=== PATIENT | female | born 1930 | race Caucasian/White ===

== ENCOUNTER → 2016-03-17 | Outpatient (CLI) | payer OTHER, BC ==
--- NOTE | 2016-03-17 11:24 | DIAGNOSTIC IMAGING REPORT ---
CHEST 2 VIEWS ROUTINE CLINICAL HISTORY: J44.9 Chronic obstructive pulmonary [id number] dyspnea COMPARISON STUDY: No previous studies for comparison. FINDINGS: Emphysematous change. Prominent pulmonary vasculature. Small bilateral pleural effusions. IMPRESSION: Congestive heart failure. Emphysematous change. Electronically signed by: Hardik Bianchi M.D. 03/17/2016 11:22 AM
== END | disposition home or self-care (01) ==
LOC: C.RAD1850 10:52
PROVIDERS: ATTEND Nurse Practitioner
DX: J44.9 Chronic obstructive pulmonary disease, unspecified (principal); I50.9 Heart failure, unspecified

== ENCOUNTER → 2016-05-01 | Outpatient (CLI) | payer OTHER, BC ==
[2016-05-01 13:15] LABS: THYROID STIMULATING HORMONE 3.59 uIu/ml (0.300-4.500)
== END | disposition home or self-care (01) ==
LOC: C.LABBFT 10:26
PROVIDERS: ATTEND Nurse Practitioner
DX: E07.9 Disorder of thyroid, unspecified (principal)

== ENCOUNTER → 2016-06-03 | Outpatient (CLI) | payer OTHER, BC ==
[2016-06-03 12:48] LABS: BASO % 0.2 %; BASO ABS # 0.02 K/uL (0-0.2); COMPLETE YES; EOS % 0.5 %; HEMATOCRIT 38.3 % (37-47); IG% 0.2 %; LYMPH % 3.9 %; LYMPH ABS # 0.42 K/uL (1.2-3.4); MEAN CELL VOLUME 89.7 fL (80-100); MEAN CORPUSCULAR HEMOGLOBIN 29.3 pg (25-34); MEAN CORPUSCULAR HGB CONC 32.6 g/dl (32-36); MEAN PLATELET VOLUME 10.5 fL (7.4-10.4); MONO % 3.9 %; NEUT % 91.3 %; PLATELET COUNT 281 K/uL (130-400); RED BLOOD COUNT 4.27 M/uL (4.2-5.4); WHITE BLOOD COUNT 10.88 K/uL (4.8-10.8)
[2016-06-03 13:01] LABS: ALT/SGPT 26 U/L (12-78); AST/SGOT 19 U/L (15-37); CREATININE 0.73 mg/dl (0.60-1.20)
[2016-06-03 13:04] LABS: ALKALINE PHOSPHATASE 116 U/L (45-117)
== END | disposition home or self-care (01) ==
LOC: C.LABBFT 10:21
PROVIDERS: ATTEND Physician Assistant
DX: Z79.899 Other long term (current) drug therapy (principal)

== ENCOUNTER → 2016-10-29 | Outpatient (CLI) | payer OTHER, BC ==
--- NOTE | 2016-10-29 12:19 | DIAGNOSTIC IMAGING REPORT ---
CHEST 2 VIEWS ROUTINE CLINICAL HISTORY: R60.9 cough dyspnea COMPARISON STUDY: 03/17/2016 FINDINGS: Emphysematous and diffuse chronic fibrotic change. Chronic The lateral costophrenic angles. Stable pulmonary hyperaeration. Potential minimal parenchymal infiltrative change anterior aspect right middle lobe. IMPRESSION: 1. 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 2. Minimal superimposed infiltrative process anterior right middle lobe. The above report was generated using voice recognition software. It may contain grammatical, syntax or spelling errors. Electronically signed by: Hardik Bianchi M.D. 10/29/2016 12:18 PM Dictated Date/Time: 10/29/2016 12:16 PM
[2016-10-29 13:48] LABS: ALT/SGPT 20 U/L (12-78); AST/SGOT 20 U/L (15-37); BLOOD UREA NITROGEN 9 mg/dl (7-18); BUN/CREATININE RATIO 14.7 (10-20); CALCIUM 8.8 mg/dl (8.5-10.1); CARBON DIOXIDE 30 mmol/L (21-32); CHLORIDE 104 mmol/L (98-107); CHOLESTEROL 138 mg/dl (0-200); CREATININE 0.59 mg/dl (0.60-1.20); GLUCOSE 90 mg/dl (70-99); POTASSIUM 3.9 mmol/L (3.5-5.1); SODIUM 139 mmol/L (136-145); TRIGLYCERIDES 57 mg/dl (0-150); VERY LOW DENSITY LIPOPROT CALC 11 mg/dl
[2016-10-29 13:55] LABS: ALB/GLOB RATIO 0.7 (0.9-2); ALKALINE PHOSPHATASE 114 U/L (45-117); CHOLESTEROL/HDL RATIO 2.7; HDL CHOLESTEROL 52 mg/dl; LDL CHOLESTEROL CALCULATED 75 mg/dl
[2016-10-29 13:57] LABS: ESTIMATED AVERAGE GLUCOSE 114 mg/dl; HA1C FLAG Normal (Normal)
== END | disposition home or self-care (01) ==
LOC: C.RAD 11:42
PROVIDERS: ATTEND Nurse Practitioner
DX: R60.9 Edema, unspecified (principal); R73.01 Impaired fasting glucose; E07.9 Disorder of thyroid, unspecified

== ENCOUNTER → 2016-11-05 | Outpatient (CLI) | payer OTHER, BC ==
[2016-11-05 18:00] LABS: BLOOD UREA NITROGEN 11 mg/dl (7-18); BUN/CREATININE RATIO 16.8 (10-20); CARBON DIOXIDE 31 mmol/L (21-32); CHLORIDE 103 mmol/L (98-107); CREATININE 0.68 mg/dl (0.60-1.20); GLUCOSE 100 mg/dl (70-99); POTASSIUM 4.4 mmol/L (3.5-5.1); SODIUM 138 mmol/L (136-145)
== END | disposition home or self-care (01) ==
LOC: C.LABBFT 15:47
PROVIDERS: ATTEND Nurse Practitioner
DX: R60.9 Edema, unspecified (principal)

== ENCOUNTER → 2017-01-25 | Outpatient (CLI) | payer OTHER, BC | END | disposition home or self-care (01) | LOC: C.LABBFT 14:37 | PROVIDERS: ATTEND Nurse Practitioner | DX: E03.9 Hypothyroidism, unspecified (principal) ==

== ENCOUNTER 2017-05-06 14:13 | Inpatient (IN) | payer OTHER, BC ==
[~2017-05-06] VITALS: Ht 167.6 cm; Wt 93.3 kg
[2017-05-06] MEDS ORDERED: ALBUT/IPRATROP 3MG/0.5MG NEB 3 ML VIAL INH ONE (14:30)
--- NOTE | 2017-05-06 14:36 | EMERGENCY ROOM VISIT NOTE ---
ED Visit Note First contact with patient: 14:17 CHIEF COMPLAINT: Shortness of breath HISTORY OF PRESENTING ILLNESS: This is an 87-year-old female who presents to the emergency department via EMS with complaint of increasing shortness of breath. The patient's daughter is at bedside and helps to provide the history. She states that she started to get sick approximately 10 days ago with some flulike symptoms, but did not seek any treatment for this until the past 2 days. She was placed on doxycycline two days ago, but has continued to worsen. Today, she was noted to be increasingly short of breath in spite of wearing her home O2 of 2L, and was also noted to be hypoxic. She states she has also been feeling generally weak and tired for the past several days. She denies any headaches, vision changes, chest pain, dizziness or syncope, nausea or vomiting, abdominal pain, diarrhea, urinary symptoms, or rash. REVIEW OF SYSTEMS: A complete 10 point review of systems was reviewed with the patient with pertinent positives and negatives as per history of present illness. All else were negative. PAST MEDICAL HISTORY: Reviewed in the chart SOCIAL HISTORY: Lives at [facility] in assisted living. Former smoker, denies alcohol or recreational drugs. ALLERGIES: No known allergies. PHYSICAL EXAM: CONSTITUTIONAL: Pleasant and cooperative. No acute distress, but noted to be mildly tachypneic. Speaking in full sentences. Well hydrated. Frail appearing. HEENT: Normocephalic, atraumatic. Pupils equal, round and reactive to light, EOMI. TMs normal. Pharynx normal. Moist mucus membranes. NECK: Supple, full active range of motion without discomfort. RESPIRATORY: Significantly diminished to auscultation bilaterally with scant expiratory wheezing and rhonchi, no crackles or stridor. Mild accessory muscle use. Equal expansion bilaterally. CARDIOVASCULAR: Regular rate and rhythm with no murmurs, rubs or gallops. Normal peripheral perfusion. No edema. GASTROINTESTINAL: Soft, nontender, nondistended. No palpable masses or HSM. Bowel sounds present in all quadrants. MUSCULOSKELETAL: Full range of motion of all joints without discomfort. INTEGUMENTARY: No rash or other significant dermatologic conditions noted. NEUROLOGIC: Alert and oriented X 4 with normal affect. Cranial nerves II-XII grossly intact. No focal neurologic deficits noted. Normal strength and sensation in all four extremities. Normal speech. ED COURSE AND MEDICAL DECISION MAKING: CC: Patient presenting with complaint of shortness of breath, hypoxia DIFFERENTIAL DIAGNOSIS: Includes, but not limited to viral URI, bronchitis, pneumonia, influenza, ACS, CHF, COPD exacerbation, PE, among others. INTERPRETATION OF LABS: No leukocytosis, no anemia, no significant electrolyte abnormalities, normal renal function, normal liver enzymes. Negative troponin. Pro-BNP within normal limits. Influenza A/B is negative. UA negative for infection. IMAGING: CHEST ONE VIEW PORTABLE CLINICAL HISTORY: Shortness of breath. COMPARISON STUDY: Chest radiograph October 29, 2016. FINDINGS: There is no pneumothorax. Blunting of both costophrenic angles is unchanged. There is no evidence for pulmonary edema. Cardiac size is normal. Diffuse interstitial thickening persists. There has been interval development of right upper lung airspace opacity. There is no cavitation. IMPRESSION: Interval development of right upper lung airspace opacity suggestive of pneumonia. Post treatment radiographs to ensure resolution are recommended. EKG: Normal sinus rhythm with a rate of 100 bpm, voltage criteria for left ventricular hypertrophy by my interpretation. No previous EKGs available for comparison. MEDICATION RECONCILIATION: I attest that I have personally reviewed the patient 's current medication list. INITIAL VITAL SIGNS REVIEW: I reviewed the patient's initial vital signs and interpret them as follows: T: Afebrile; BP: Hypertensive; HR: Tachycardia; RR : Tachypneic; Pulse Ox: Hypoxic . Blood pressure screening: The patient was found to have an elevated blood pressure and was referred to the inpatient team for further management. SUMMARY: Patient was evaluated at bedside, history and physical exam performed. Patient is alert and oriented, in no acute distress, but does appear to have slightly labored breathing. She is able to speak in full sentences. Lungs are diminished throughout, scant wheezing bilaterally and rhonchi heard on the right. Patient was noted to have a sat of 83% on her 2L oxygen in the nursing notes from [facility]. Patient is noted to be 91% on 2L here, increased to 3L nasal cannula. EKG reviewed at bedside, normal sinus rhythm with no acute ischemic changes noted. Orders were placed at bedside for labs, UA, hour-long duoneb, prednisone, CXR to evaluate for cardiopulmonary disease. Patient discussed with Dr. Rodrigez, who agrees with my assessment and plan. Labs and imaging reviewed as above, notable for right upper lobe pneumonia. In setting of already being placed on antibiotics, I suspect that the patient has had failure of outpatient treatment, and would benefit from admission for further management of her pneumonia. Findings were discussed with Dr. Rodrigez, will place the patient on broad spectrum IV antibiotics with Vancomycin and Cefepime, small volume fluid bolus, and will send blood cultures prior to starting of antibiotics Patient was discussed with [facility] service, who agreed to admit the patient. Patient reassessed multiple times throughout ED stay, she is improved after hour -long neb treatment and has returned to her baseline 2 L of oxygen. She also states that her shortness of breath is feeling a little bit better. Patient and daughter were updated on all results and plan for admission, they verbalized understanding and were in agreement with this plan. The patient was stable at time of admission. Current/Historical Medications Scheduled Cholecalciferol (Vitamin D3), 2,000 UNITS PO QAM Doxycycline Hyclate (Doxycycline Hyclate), 100 MG PO BID Home O2 Therapy (Oxygen), 2 LITERS NA CONTINOUS Ipratropium [place] (Atrovent 0.02% Soln), 1 VIAL INH TID Levalbuterol (Levalbuterol HCl), 1 VIAL INH TID Levothyroxine Sodium (Levothyroxine Sodium), 25 MCG PO QAM Methotrexate (Methotrexate), 5 MG PO WK Scheduled PRN Acetaminophen (Tylenol), 500 MG PO Q6H PRN for MILD PAIN/FEVER Acetaminophen (Tylenol), 1,000 MG PO Q6H PRN for MODERATE PAIN Furosemide (Lasix), 20 MG PO DAILY PRN for ANKLE EDEMA Potassium Chloride (Potassium Chloride Er), 10 MEQ PO DAILY PRN for WHEN GIVEN LASIX Allergies Coded Allergies: No Known Allergies (Unverified , 05/06/17) Vital Signs Date Time Temp Pulse Resp B/P (MAP) Pulse Ox O2 Delivery O2 Flow Rate FiO2 05/06/17 20:37 105 18 103/54 100 Nasal Cannula 2.0 05/06/17 18:49 116 18 111/60 98 Nasal Cannula 2.0 05/06/17 17:06 37.0 125 18 113/61 100 Nasal Cannula 2.0 05/06/17 16:01 117 18 137/71 100 Nebulizer 8.0 05/06/17 15:12 100 21 100 Nasal Cannula 2.0 05/06/17 14:57 100 Nasal Cannula 3.0 2/22/18 14:56 100 Nasal Cannula 3.0 05/06/17 14:56 100 Nasal Cannula 3.0 05/06/17 14:30 91 Nasal Cannula 3.0 05/06/17 14:28 91 Nasal Cannula 3.0 05/06/17 14:27 102 05/06/17 14:25 36.8 103 22 144/87 91 Nasal Cannula 3.0 Laboratory Results 05/06/17 15:15 Red Blood Count 4.31, Mean Corpuscular Volume 92.1, Mean Corpuscular Hemoglobin 30.2, Mean Corpuscular Hemoglobin Concent 32.7, Mean Platelet Volume 10.0, Neutrophils (%) (Auto) 88.9, Lymphocytes (%) (Auto) 4.3, Monocytes (%) (Auto) 5.2, Eosinophils (%) (Auto) 1.2, Basophils (%) (Auto) 0.2, Neutrophils # (Auto) 5.35, Lymphocytes # (Auto) 0.26, Monocytes # (Auto) 0.31, Eosinophils # (Auto) 0.07, Basophils # (Auto) 0.01 05/06/17 15:15 Test 05/06/17 15:00 05/06/17 15:15 05/06/17 16:45 Influenza Type A Antigen Neg for Influ A (NEG) Influenza Type B Antigen Neg for Influ B (NEG) White Blood Count 6.01 K/uL (4.8-10.8) Red Blood Count 4.31 M/uL (4.2-5.4) Hemoglobin 13.0 g/dL (12.0-16.0) Hematocrit 39.7 % (37-47) Mean Corpuscular Volume 92.1 fL (80-100) Mean Corpuscular Hemoglobin 30.2 pg (25-34) Mean Corpuscular Hemoglobin Concent 32.7 g/dl (32-36) Platelet Count 268 K/uL (130-400) Mean Platelet Volume 10.0 fL (7.4-10.4) Neutrophils (%) (Auto) 88.9 % Lymphocytes (%) (Auto) 4.3 % Monocytes (%) (Auto) 5.2 % Eosinophils (%) (Auto) 1.2 % Basophils (%) (Auto) 0.2 % Neutrophils # (Auto) 5.35 K/uL (1.4-6.5) Lymphocytes # (Auto) 0.26 K/uL (1.2-3.4) Monocytes # (Auto) 0.31 K/uL (0.11-0.59) Eosinophils # (Auto) 0.07 K/uL (0-0.5) Basophils # (Auto) 0.01 K/uL (0-0.2) RDW Standard Deviation 45.1 fL (36.4-46.3) RDW Coefficient of Variation 13.5 % (11.5-14.5) Immature Granulocyte % (Auto) 0.2 % Immature Granulocyte # (Auto) 0.01 K/uL (0.00-0.02) Anion Gap 5.0 mmol/L (3-11) Est Creatinine Clear Calc Drug Dose 34.6 ml/min Estimated GFR () 88.5 Estimated GFR (Non- 76.4 BUN/Creatinine Ratio 17.1 (10-20) Calcium Level 9.2 mg/dl (8.5-10.1) Total Bilirubin 0.7 mg/dl (0.2-1) Aspartate Amino Transf (AST/SGOT) 28 U/L (15-37) Alanine Aminotransferase (ALT/SGPT) 26 U/L (12-78) Alkaline Phosphatase 131 U/L (45-117) Troponin I < 0.015 ng/ml (0-0.045) Pro-B-Type Natriuretic Peptide 462 pg/ml (0-1800) Total Protein 7.2 gm/dl (6.4-8.2) Albumin 2.8 gm/dl (3.4-5.0) Globulin 4.4 gm/dl (2.5-4.0) Albumin/Globulin Ratio 0.6 (0.9-2) Urine Color YELLOW Urine Appearance CLEAR (CLEAR) Urine pH 7.0 (4.5-7.5) Urine Specific [place] 1.008 (1.000-1.030) Urine Protein NEG (NEG) Urine Glucose (UA) NEG (NEG) Urine Ketones NEG (NEG) Urine Occult Blood NEG (NEG) Urine Nitrite NEG (NEG) Urine Bilirubin NEG (NEG) Urine Urobilinogen NEG (NEG) Urine Leukocyte Esterase TRACE (NEG) Urine WBC (Auto) 1-5 /hpf (0-5) Urine RBC (Auto) 0-4 /hpf (0-4) Urine Hyaline Casts (Auto) 1-5 /lpf (0-5) Urine Epithelial Cells (Auto) 5-10 /lpf (0-5) Urine Bacteria (Auto) NEG (NEG) Medications Administered Medications (Trade) Dose Ordered Sig/Alphonso Route Start Time Stop Time Status Last Admin Dose Admin Albuterol/ Ipratropium (Duoneb) 12 ml ONE ONCE INH 05/06/17 14:30 05/06/17 14:31 DC 05/06/17 15:11 12 ML Prednisone (PredniSONE TAB) 50 mg NOW STAT PO 05/06/17 15:12 05/06/17 15:13 DC 05/06/17 15:28 50 MG Vancomycin HCl (Vancomycin 1gm/ 270ml Nss) 1 gm NOW STAT IV 05/06/17 16:34 05/06/17 16:36 DC 05/06/17 17:05 1 GM Sodium Chloride 150 ml @ 999 mls/hr Q10M STAT IV 05/06/17 16:34 05/06/17 16:43 DC 05/06/17 16:34 999 MLS/HR Cefepime HCl 2000 mg/Dextrose 122 ml @ 200 mls/hr NOW STAT IV 05/06/17 16:34 05/06/17 17:10 DC 05/06/17 16:34 200 MLS/HR Departure Information Impression Primary Impression: COPD with exacerbation Additional Impression: Right upper lobe pneumonia Dispostion Admitted as an inpatient Condition FAIR Referrals Sonya Barakat, C.R.N.P. (PCP) Patient Instructions [facility] Problem Qualifiers Additional Impression: Right upper lobe pneumonia Pneumonia type: due to unspecified organism Qualified Codes: J18.1 - Lobar pneumonia, unspecified organism
[2017-05-06] MEDS ORDERED: VBRT100 PO (15:07)
[2017-05-06] MEDS ORDERED: METH2.5T PO (15:07)
[2017-05-06] MEDS ORDERED: CHOL2000 PO (15:07)
[2017-05-06] MEDS ORDERED: XPNINS INH (15:07)
[2017-05-06] MEDS ORDERED: OXGN (15:07)
[2017-05-06] MEDS ORDERED: POTA-74 PO (15:07)
[2017-05-06] MEDS ORDERED: FURO-85 PO (15:07)
[2017-05-06] MEDS ORDERED: LEVO25TA5 PO (15:07)
[2017-05-06] MEDS ORDERED: ACET-1256 PO (15:07)
[2017-05-06] MEDS ORDERED: ATRINSX INH (15:07)
[2017-05-06 15:12] VITALS: PULSE 100; O2SAT 100
[2017-05-06 15:22] LABS: BASO % 0.2 %; BASO ABS # 0.01 K/uL (0-0.2); EOS % 1.2 %; EOS ABS # 0.07 K/uL (0-0.5); HEMATOCRIT 39.7 % (37-47); IG# 0.01 K/uL (0.00-0.02); LYMPH % 4.3 %; LYMPH ABS # 0.26 K/uL (1.2-3.4); MEAN CELL VOLUME 92.1 fL (80-100); MEAN CORPUSCULAR HEMOGLOBIN 30.2 pg (25-34); MEAN CORPUSCULAR HGB CONC 32.7 g/dl (32-36); MONO % 5.2 %; MONO ABS # 0.31 K/uL (0.11-0.59); NEUT % 88.9 %; NEUT ABS # 5.35 K/uL (1.4-6.5); PLATELET COUNT 268 K/uL (130-400); RED CELL DISTRIBUTION WIDTH CV 13.5 % (11.5-14.5); RED CELL DISTRIBUTION WIDTH SD 45.1 fL (36.4-46.3); WHITE BLOOD COUNT 6.01 K/uL (4.8-10.8)
[2017-05-06 15:44] LABS: ALBUMIN 2.8 gm/dl (3.4-5.0); ALT/SGPT 26 U/L (12-78); BLOOD UREA NITROGEN 12 mg/dl (7-18); CALCIUM 9.2 mg/dl (8.5-10.1); CARBON DIOXIDE 33 mmol/L (21-32); CREATININE 0.72 mg/dl (0.60-1.20); GLUCOSE 121 mg/dl (70-99); POTASSIUM 4.2 mmol/L (3.5-5.1); SODIUM 136 mmol/L (136-145)
[2017-05-06 15:49] LABS: ALKALINE PHOSPHATASE 131 U/L (45-117); AST/SGOT 28 U/L (15-37); TOTAL PROTEIN 7.2 gm/dl (6.4-8.2)
[2017-05-06 15:53] LABS: INFLUENZA B ANTIGEN Neg for Influ B (NEG)
--- NOTE | 2017-05-06 16:06 | DIAGNOSTIC IMAGING REPORT ---
CHEST ONE VIEW PORTABLE CLINICAL HISTORY: Shortness of breath. COMPARISON STUDY: Chest radiograph October 29, 2016. FINDINGS: There is no pneumothorax. Blunting of both costophrenic angles is unchanged. There is no evidence for pulmonary edema. Cardiac size is normal. Diffuse interstitial thickening persists. There has been interval development of right upper lung airspace opacity. There is no cavitation. IMPRESSION: Interval development of right upper lung airspace opacity suggestive of pneumonia. Post treatment radiographs to ensure resolution are recommended. Electronically signed by: Shant Byers M.D. 05/06/2017 4:04 PM Dictated Date/Time: 05/06/2017 4:03 PM
[2017-05-06] MEDS ORDERED: CEFEPIME IV 2,000 MG in DEXTROSE 5% 100ML 100 ML IV STA (16:34)
[2017-05-06] MEDS ORDERED: SODIUM CHLORIDE 0.9% 150ML 150 ML IV STA (16:34)
[2017-05-06] MEDS ORDERED: VANCOMYCIN 1GM/270ML NSS IV STA (16:34)
--- NOTE | 2017-05-06 17:49 | EMERGENCY ROOM VISIT NOTE ---
ED Visit Note First contact with patient: 15:17 The patient was seen and examined with Criselda. I agree with the history, physical and findings. Please see the note for disposition and details.
[2017-05-06] MEDS ORDERED: ACETAMINOPHEN 325 MG TAB PO PRN (21:15)
[2017-05-06] MEDS ORDERED: VANCOMYCIN INJ 1,000 MG in SODIUM CHLORIDE 0.9% 250ML 250 ML IV STA (21:18)
[2017-05-06] MEDS ORDERED: ONDANSETRON INJ 2 MG/ML 2 ML VIAL IV PRN (21:30)
[2017-05-06] MEDS ORDERED: VANCOMYCIN CONSULT ACTIVE PRN (21:30)
[2017-05-06] MEDS ORDERED: ONDANSETRON 8MG OD TAB PO PRN (21:30)
[2017-05-06] MEDS ORDERED: PIPERACILL/TAZOBAC CONSULT ACTIVE PRN (21:30)
[2017-05-06] MEDS ORDERED: PIPERACILL/TAZOBAC IV 3.375 GM in DEXTROSE 5% 100ML 100 ML IV SCH (22:00)
[2017-05-06] MEDS ORDERED: LEVALBUTEROL 1.25MG/0.5ML NEB INH PRN (22:15)
[2017-05-06] MEDS ORDERED: IPRATROPIUM BROMIDE NEB SOLN 0.02% 2.5 ML VIAL INH PRN (22:15)
--- NOTE | 2017-05-06 22:50 | History and Physical ---
History & Physical Date & Time of Service: May 06, 2017 at 22:50 Chief Complaint: Copd With Exacerbation, Right Upper Lobe Pneumonia Primary Care Physician: Sonya Barakat, ChantalNMeenakshiPMeenakshi History of Present Illness Source: patient, family Acute respiratory failure with hypoxia/right upper lobe pneumonia/multifocal pneumonia/failure of outpatient therapy-- Admit to medical floor. Vancomycin IV per pharmacokinetic monitoring Cefepime 1 g IV every 8 hours Levofloxacin 500 mg IV every 24 hours Duonebs every 4 hours while awake and every 2 hours when necessary. Solu-Medrol 30 mg IV every 8 hours Guaifenesin extended release 600 mg by mouth twice a day Nasal cannula oxygen titrate to keep pulse ox greater than or equal to 92%. Home O2 is 2 L continuous Sputum Gram stain and culture. Hypothyroidism-- Continue levothyroxine sodium 25 mcg every morning. Arthritis-- On methotrexate 7.5 mg weekly in the outpatient setting. Monitor for deconditioning as admission progresses, may need to have a PT OT assessment prior to discharge. She presently lives at [facility]. Social History Smoking Status: Former Smoker Multi-Drug Resistant Organisms History of MDRO: No Allergies Coded Allergies: No Known Allergies (Unverified , 05/06/17) Home Medications Scheduled Cholecalciferol (Vitamin D3), 2,000 UNITS PO QAM Doxycycline Hyclate (Doxycycline Hyclate), 100 MG PO BID Home O2 Therapy (Oxygen), 2 LITERS NA CONTINOUS Ipratropium [place] (Atrovent 0.02% Soln), 1 VIAL INH TID Levalbuterol (Levalbuterol HCl), 1 VIAL INH TID Levothyroxine Sodium (Levothyroxine Sodium), 25 MCG PO QAM Methotrexate (Methotrexate), 5 MG PO WK Scheduled PRN Acetaminophen (Tylenol), 500 MG PO Q6H PRN for MILD PAIN/FEVER Acetaminophen (Tylenol), 1,000 MG PO Q6H PRN for MODERATE PAIN Furosemide (Lasix), 20 MG PO DAILY PRN for ANKLE EDEMA Potassium Chloride (Potassium Chloride Er), 10 MEQ PO DAILY PRN for WHEN GIVEN LASIX Physical Exam Vital Signs Date Time Temp Pulse Resp B/P (MAP) Pulse Ox O2 Delivery O2 Flow Rate FiO2 05/06/17 21:53 103 18 107/53 100 Nasal Cannula 2.0 05/06/17 20:37 105 18 103/54 100 Nasal Cannula 2.0 05/06/17 18:49 116 18 111/60 98 Nasal Cannula 2.0 05/06/17 17:06 37.0 125 18 113/61 100 Nasal Cannula 2.0 05/06/17 16:01 117 18 137/71 100 Nebulizer 8.0 05/06/17 15:12 100 21 100 Nasal Cannula 2.0 05/06/17 14:57 100 Nasal Cannula 3.0 05/06/17 14:56 100 Nasal Cannula 3.0 05/06/17 14:56 100 Nasal Cannula 3.0 05/06/17 14:30 91 Nasal Cannula 3.0 05/06/17 14:28 91 Nasal Cannula 3.0 05/06/17 14:27 102 05/06/17 14:25 36.8 103 22 144/87 91 Nasal Cannula 3.0 Diagnostics Laboratory Results Results Past 24 Hours Test 05/06/17 15:00 05/06/17 15:15 05/06/17 16:45 Range/Units Influenza Type A Antigen Neg for Influ A NEG Influenza Type B Antigen Neg for Influ B NEG White Blood Count 6.01 4.8-10.8 K/uL Red Blood Count 4.31 4.2-5.4 M/uL Hemoglobin 13.0 12.0-16.0 g/dL Hematocrit 39.7 37-47 % Mean Corpuscular Volume 92.1 80-100 fL Mean Corpuscular Hemoglobin 30.2 25-34 pg Mean Corpuscular Hemoglobin Concent 32.7 32-36 g/dl Platelet Count 268 130-400 K/uL Mean Platelet Volume 10.0 7.4-10.4 fL Neutrophils (%) (Auto) 88.9 % Lymphocytes (%) (Auto) 4.3 % Monocytes (%) (Auto) 5.2 % Eosinophils (%) (Auto) 1.2 % Basophils (%) (Auto) 0.2 % Neutrophils # (Auto) 5.35 1.4-6.5 K/uL Lymphocytes # (Auto) 0.26 1.2-3.4 K/uL Monocytes # (Auto) 0.31 0.11-0.59 K/uL Eosinophils # (Auto) 0.07 0-0.5 K/uL Basophils # (Auto) 0.01 0-0.2 K/uL RDW Standard Deviation 45.1 36.4-46.3 fL RDW Coefficient of Variation 13.5 11.5-14.5 % Immature Granulocyte % (Auto) 0.2 % Immature Granulocyte # (Auto) 0.01 0.00-0.02 K/uL Sodium Level 136 136-145 mmol/L Potassium Level 4.2 3.5-5.1 mmol/L Chloride Level 98 98-107 mmol/L Carbon Dioxide Level 33 21-32 mmol/L Anion Gap 5.0 3-11 mmol/L Blood Urea Nitrogen 12 7-18 mg/dl Creatinine 0.72 0.60-1.20 mg/dl Est Creatinine Clear Calc Drug Dose 34.6 ml/min Estimated GFR () 88.5 Estimated GFR (Non- 76.4 BUN/Creatinine Ratio 17.1 10-20 Random Glucose 121 70-99 mg/dl Calcium Level 9.2 8.5-10.1 mg/dl Total Bilirubin 0.7 0.2-1 mg/dl Aspartate Amino Transf (AST/SGOT) 28 15-37 U/L Alanine Aminotransferase (ALT/SGPT) 26 12-78 U/L Alkaline Phosphatase 131 45-117 U/L Troponin I < 0.015 0-0.045 ng/ml Pro-B-Type Natriuretic Peptide 462 0-1800 pg/ml Total Protein 7.2 6.4-8.2 gm/dl Albumin 2.8 3.4-5.0 gm/dl Globulin 4.4 2.5-4.0 gm/dl Albumin/Globulin Ratio 0.6 0.9-2 Urine Color YELLOW Urine Appearance CLEAR CLEAR Urine pH 7.0 4.5-7.5 Urine Specific [place] 1.008 1.000-1.030 Urine Protein NEG NEG Urine Glucose (UA) NEG NEG Urine Ketones NEG NEG Urine Occult Blood NEG NEG Urine Nitrite NEG NEG Urine Bilirubin NEG NEG Urine Urobilinogen NEG NEG Urine Leukocyte Esterase TRACE NEG Urine WBC (Auto) 1-5 0-5 /hpf Urine RBC (Auto) 0-4 0-4 /hpf Urine Hyaline Casts (Auto) 1-5 0-5 /lpf Urine Epithelial Cells (Auto) 5-10 0-5 /lpf Urine Bacteria (Auto) NEG NEG Microbiology Results 05/06/17 Blood Culture, Received Pending 05/06/17 Blood Culture, Received Pending Impression VTE Prophylaxis VTE Risk Assessment Done? Y/N: Yes Risk Level: Moderate
[2017-05-06 22:51] VITALS: BP 109/67; PULSE 106; TEMP 36.5; O2SAT 100
[2017-05-06] MEDS ORDERED: LEVOFLOXACIN / D5W 500 MG in PREMIXED IN D5W 100 ML IV SCH (23:00)
[2017-05-06] MEDS: NSS + 20MEQ KCL 1000ML 1,000 ML IV SCH (23:40)
[2017-05-07] VITALS: Ht 167.6 cm; Wt 93.3 kg
[2017-05-07] MEDS ORDERED: PIPERACILL/TAZOBAC IV 3.375 GM in DEXTROSE 5% 100ML IV ONE ×2
[2017-05-07] MEDS: METHYLPREDNISOLONE IV 30 MG in SYRINGE 0 ML IV SCH ×3 (00:35→16:15)
[2017-05-07] MEDS: IPRATROPIUM BROMIDE NEB SOLN 0.02% 2.5 ML VIAL INH SCH ×4 (01:39→19:08)
[2017-05-07] MEDS: LEVALBUTEROL 1.25MG/0.5ML NEB INH SCH ×4 (01:39→19:08)
[2017-05-07] MEDS ORDERED: LEVALBUTEROL/IPRATROPIUM NEB INH SCH (03:00)
[2017-05-07] MEDS ORDERED: VANCOMYCIN INJ 1,500 MG in SODIUM CHLORIDE 0.9% 500ML 500 ML IV SCH (04:00)
[2017-05-07] MEDS: LEVOTHYROXINE 25 MCG TAB PO SCH (05:04)
[2017-05-07] MEDS: PIPERACILL/TAZOBAC IV 3.375 GM in DEXTROSE 5% 100ML IV SCH ×3 (05:04→22:43)
[2017-05-07 07:10] VITALS: PULSE 78; O2SAT 97
[2017-05-07 07:29] VITALS: BP 106/68; PULSE 70; TEMP 36.5; O2SAT 97
[2017-05-07 07:44] LABS: HEMATOCRIT 32.5 % (37-47); HEMOGLOBIN 10.5 g/dL (12.0-16.0); IG# 0.01 K/uL (0.00-0.02); LYMPH % 3.3 %; LYMPH ABS # 0.14 K/uL (1.2-3.4); MEAN CORPUSCULAR HEMOGLOBIN 29.4 pg (25-34); MEAN CORPUSCULAR HGB CONC 32.3 g/dl (32-36); MEAN PLATELET VOLUME 9.8 fL (7.4-10.4); MONO % 1.7 %; MONO ABS # 0.07 K/uL (0.11-0.59); NEUT % 94.8 %; NEUT ABS # 3.96 K/uL (1.4-6.5); PLATELET COUNT 220 K/uL (130-400); RED CELL DISTRIBUTION WIDTH CV 13.6 % (11.5-14.5); RED CELL DISTRIBUTION WIDTH SD 44.8 fL (36.4-46.3); WHITE BLOOD COUNT 4.18 K/uL (4.8-10.8)
[2017-05-07 07:52] LABS: INR 1.2 (0.9-1.1)
--- NOTE | 2017-05-07 08:19 | Clinical Documentation Query ---
QUERY 1 OF 2 CLINICAL DOCUMENTATION QUERY Ms. COREY, In your clinical opinion is this patient being managed for: ( x ) possible gram negative or MRSA Pneumonia still not ruled out but will narrow abx ( ) Not Agree ( ) Other explanation of clinical findings (Please Explain) ( ) Unable to determine (Please Define) ( ) Need to Discuss The medical record reflects the following clinical findings, treatment, and risk factors. Clinical Indicators: 87 yo female presenting with increasing dyspnea despite being on outpatient antibiotics. Flu like Symptoms started approx 10 days prior however pt did not seek treatment until 2 days ago. O2 sat of 83% on chronic home O2 of 2L with slightly labored breathing. HR 103. Treatment:IV fluid bolus, IV solumedrol, IV vancomycin, IV cefepime, IV levaquin, duonebs, sputum cx and gram stain. Risk Factors: age, COPD with home O2 therapy and nebs, methotrexate therapy QUERY 2 OF 2 In your clinical opinion is this patient being managed for: ( ) Chronic hypoxic respiratory failure ( ) Not Agree ( ) Other explanation of clinical findings (Please Explain) ( ) Unable to determine (Please Define) ( ) Need to Discuss The medical record reflects the following clinical findings, treatment, and risk factors. Clinical Indicators:Pt noted to wear chronic home O2 therapy Treatment: home treatment includes O2 support and nebs Risk Factors: COPD Please clarify and document your clinical opinion in the progress notes and discharge summary. Terms such as "probable", "suspected", "likely", "questionable", "possible", or "still to be ruled out" are acceptable. IF IN AGREEMENT, YOU MUST DOCUMENT ABOVE DIAGNOSTIC STATEMENT IN DAILY PROGRESS NOTES AND DISCHARGE SUMMARY. This document is not part of the patient's record. Thank You, Ellie Sousa, JUMA [phone]
[2017-05-07 08:20] LABS: CALCIUM 8.6 mg/dl (8.5-10.1); CREATININE 0.67 mg/dl (0.60-1.20); POTASSIUM 4.1 mmol/L (3.5-5.1)
[2017-05-07] MEDS: LACTOBACILLUS ACIDOPHILUS (FLORANEX) TAB PO SCH ×4 (08:23→20:19)
[2017-05-07] MEDS: GUAIFENESIN 200 MG TAB PO SCH ×2 (08:24→20:20)
[2017-05-07] MEDS: CHOLECALCIFEROL 1000 INTER.UNIT TAB PO SCH (08:25)
--- NOTE | 2017-05-07 10:30 | Pharmacy Progress Note ---
Pharmacy Antibiotic Consult Date of Service: May 07, 2017. Pharmacy Dosing Scope Pharmacy is consulted to initiate Vancomycin/Zosyn IV dosing therapy, order appropriate labs and adjust drug dose/frequency. Subjective The patient is a 87 year old female admitted on May 06, 2017 at 21:13. Objective Height (Feet): 5 Height (Inches): 6.00 Weight (Kilograms): 93.300 Lab Results (24hrs): Test 05/06/17 15:00 05/06/17 15:15 05/06/17 16:45 05/07/17 07:26 Influenza Type A Antigen Neg for Influ A (NEG) Influenza Type B Antigen Neg for Influ B (NEG) White Blood Count 6.01 K/uL (4.8-10.8) 4.18 K/uL (4.8-10.8) Red Blood Count 4.31 M/uL (4.2-5.4) 3.57 M/uL (4.2-5.4) Hemoglobin 13.0 g/dL (12.0-16.0) 10.5 g/dL (12.0-16.0) Hematocrit 39.7 % (37-47) 32.5 % (37-47) Mean Corpuscular Volume 92.1 fL (80-100) 91.0 fL (80-100) Mean Corpuscular Hemoglobin 30.2 pg (25-34) 29.4 pg (25-34) Mean Corpuscular Hemoglobin Concent 32.7 g/dl (32-36) 32.3 g/dl (32-36) Platelet Count 268 K/uL (130-400) 220 K/uL (130-400) Mean Platelet Volume 10.0 fL (7.4-10.4) 9.8 fL (7.4-10.4) Neutrophils (%) (Auto) 88.9 % 94.8 % Lymphocytes (%) (Auto) 4.3 % 3.3 % Monocytes (%) (Auto) 5.2 % 1.7 % Eosinophils (%) (Auto) 1.2 % 0.0 % Basophils (%) (Auto) 0.2 % 0.0 % Neutrophils # (Auto) 5.35 K/uL (1.4-6.5) 3.96 K/uL (1.4-6.5) Lymphocytes # (Auto) 0.26 K/uL (1.2-3.4) 0.14 K/uL (1.2-3.4) Monocytes # (Auto) 0.31 K/uL (0.11-0.59) 0.07 K/uL (0.11-0.59) Eosinophils # (Auto) 0.07 K/uL (0-0.5) 0.00 K/uL (0-0.5) Basophils # (Auto) 0.01 K/uL (0-0.2) 0.00 K/uL (0-0.2) RDW Standard Deviation 45.1 fL (36.4-46.3) 44.8 fL (36.4-46.3) RDW Coefficient of Variation 13.5 % (11.5-14.5) 13.6 % (11.5-14.5) Immature Granulocyte % (Auto) 0.2 % 0.2 % Immature Granulocyte # (Auto) 0.01 K/uL (0.00-0.02) 0.01 K/uL (0.00-0.02) Sodium Level 136 mmol/L (136-145) 141 mmol/L (136-145) Potassium Level 4.2 mmol/L (3.5-5.1) 4.1 mmol/L (3.5-5.1) Chloride Level 98 mmol/L (98-107) 106 mmol/L (98-107) Carbon Dioxide Level 33 mmol/L (21-32) 30 mmol/L (21-32) Anion Gap 5.0 mmol/L (3-11) 5.0 mmol/L (3-11) Blood Urea Nitrogen 12 mg/dl (7-18) 11 mg/dl (7-18) Creatinine 0.72 mg/dl (0.60-1.20) 0.67 mg/dl (0.60-1.20) Est Creatinine Clear Calc Drug Dose 34.6 ml/min 70.6 ml/min Estimated GFR () 88.5 92.9 Estimated GFR (Non- 76.4 80.2 BUN/Creatinine Ratio 17.1 (10-20) 17.1 (10-20) Random Glucose 121 mg/dl (70-99) 121 mg/dl (70-99) Calcium Level 9.2 mg/dl (8.5-10.1) 8.6 mg/dl (8.5-10.1) Total Bilirubin 0.7 mg/dl (0.2-1) Aspartate Amino Transf (AST/SGOT) 28 U/L (15-37) Alanine Aminotransferase (ALT/SGPT) 26 U/L (12-78) Alkaline Phosphatase 131 U/L (45-117) Troponin I < 0.015 ng/ml (0-0.045) Pro-B-Type Natriuretic Peptide 462 pg/ml (0-1800) Total Protein 7.2 gm/dl (6.4-8.2) Albumin 2.8 gm/dl (3.4-5.0) Globulin 4.4 gm/dl (2.5-4.0) Albumin/Globulin Ratio 0.6 (0.9-2) Urine Color YELLOW Urine Appearance CLEAR (CLEAR) Urine pH 7.0 (4.5-7.5) Urine Specific [place] 1.008 (1.000-1.030) Urine Protein NEG (NEG) Urine Glucose (UA) NEG (NEG) Urine Ketones NEG (NEG) Urine Occult Blood NEG (NEG) Urine Nitrite NEG (NEG) Urine Bilirubin NEG (NEG) Urine Urobilinogen NEG (NEG) Urine Leukocyte Esterase TRACE (NEG) Urine WBC (Auto) 1-5 /hpf (0-5) Urine RBC (Auto) 0-4 /hpf (0-4) Urine Hyaline Casts (Auto) 1-5 /lpf (0-5) Urine Epithelial Cells (Auto) 5-10 /lpf (0-5) Urine Bacteria (Auto) NEG (NEG) Prothrombin Time 12.4 SECONDS (9.0-12.0) Prothromb Time International Ratio 1.2 (0.9-1.1) Magnesium Level 2.3 mg/dl (1.8-2.4) Micro Results: Item Value Date Time Blood Culture Received 05/06/17 1650 Blood Pending Blood Culture Received 05/06/17 1645 Blood Pending Assessment & Plan ASSESSMENT: * Ms Bowles is an 87yo female admitted with acute resp failure w/ hypoxia, pneumonia (failed outpt therapy) * Patient was taking PO Doxycycline immediately prior to admission * WBC is WNL, pt has been afebrile, blood cx pending * Patient was initiated on Vanc, LVQ, Zosyn on admission overnight PLAN: Vancomycin * Loading dose: Vancomycin 1000 mg IV X 1 dose, then maintenance regimen started early as modified load * Vancomycin 1500 mg IV every 16 hours. * Goal trough level estimate: between 15 - 20 mcg/mL for pna. * Trough level has been ordered for: 05/08/17 prior to the 3rd maintenance dose (may not yet represent steady-state) Zosyn per pharmacy consult * Zosyn 3.375gm IV x1 dose over 30 min, then * Zosyn 3.375gm IV q8h extended 4-hr infusion Levaquin 500mg IV q24h Pharmacy will continue to follow and will adjust dose/frequency as necessary. Thank you
[2017-05-07] MEDS: ENOXAPARIN 30 MG/0.3 ML SYR SC SCH (10:56)
--- NOTE | 2017-05-07 11:51 | Hospitalist Progress Note ---
Hospitalist Progress Note Date of Service May 07, 2017. Subjective Pt evaluation today including: conversation w/ patient, conversation w/ family (daughter at bedside), physical exam, chart review, lab review, review of studies, review of inpatient medication list Pain: None PO Intake: Tolerating PO diet Voiding: no voiding problems Patient reports feeling better. She states that she is still somewhat short of breath, but this is improving. She has had a poor appetite for the last week or so since she first started feeling sick. I did observe the patient eat a saltine w/o overt aspiration. The patient denies fevers, chills, sweats, chest pain, palpitations, claudication, cough, wheezing, nausea, vomiting, abdominal pain, dysuria, hematuria, urinary retention, paralysis, weakness, numbness and tingling. Additional Comments: See HPI for pertinent positives and negatives. All other systems reviewed and negative. Objective Vital Signs Date Time Temp Pulse Resp B/P (MAP) Pulse Ox O2 Delivery O2 Flow Rate FiO2 05/07/17 08:00 Nasal Cannula 2.0 05/07/17 07:29 36.5 70 16 106/68 (81) 97 Nasal Cannula 2.0 05/07/17 07:10 78 18 97 Nasal Cannula 2.0 05/07/17 00:00 Room Air 05/06/17 22:51 36.5 106 22 109/67 (81) 100 Nasal Cannula 2.0 05/06/17 21:53 103 18 107/53 100 Nasal Cannula 2.0 05/06/17 20:37 105 18 103/54 100 Nasal Cannula 2.0 05/06/17 18:49 116 18 111/60 98 Nasal Cannula 2.0 05/06/17 17:06 37.0 125 18 113/61 100 Nasal Cannula 2.0 05/06/17 16:01 117 18 137/71 100 Nebulizer 8.0 05/06/17 15:12 100 21 100 Nasal Cannula 2.0 05/06/17 14:57 100 Nasal Cannula 3.0 05/06/17 14:56 100 Nasal Cannula 3.0 05/06/17 14:56 100 Nasal Cannula 3.0 05/06/17 14:30 91 Nasal Cannula 3.0 05/06/17 14:28 91 Nasal Cannula 3.0 05/06/17 14:27 102 05/06/17 14:25 36.8 103 22 144/87 91 Nasal Cannula 3.0 Physical Exam Notes: General appearance: +Obese. Well-developed, well-nourished, no apparent distress Head: Normocephalic, atraumatic Eyes: Normal inspection, PERRL, EOMI ENT: Normal ENT inspection, hearing grossly normal, pharynx normal Neck: Supple, no JVD, trachea midline Respiratory/Chest: +On 2L NC (baseline requirement). Decreased breath sounds, tight w/poor air movement. Lungs clear to auscultation, no respiratory distress Cardiovascular: Regular rate & rhythm, no gallop, no murmur Abdomen/GI: Normal bowel sounds, non-tender, soft Extremities/Musculoskeletal: Normal inspection, no calf tenderness, no pedal edema Neurological/Psych: Alert, normal mood/affect, oriented x 3 Skin: Normal color, warm/dry, no rash Laboratory Results Last 24 Hours Test 05/06/17 15:00 05/06/17 15:15 05/06/17 16:45 05/07/17 07:26 Influenza Type A Antigen Neg for Influ A Influenza Type B Antigen Neg for Influ B White Blood Count 6.01 K/uL 4.18 K/uL Red Blood Count 4.31 M/uL 3.57 M/uL Hemoglobin 13.0 g/dL 10.5 g/dL Hematocrit 39.7 % 32.5 % Mean Corpuscular Volume 92.1 fL 91.0 fL Mean Corpuscular Hemoglobin 30.2 pg 29.4 pg Mean Corpuscular Hemoglobin Concent 32.7 g/dl 32.3 g/dl Platelet Count 268 K/uL 220 K/uL Mean Platelet Volume 10.0 fL 9.8 fL Neutrophils (%) (Auto) 88.9 % 94.8 % Lymphocytes (%) (Auto) 4.3 % 3.3 % Monocytes (%) (Auto) 5.2 % 1.7 % Eosinophils (%) (Auto) 1.2 % 0.0 % Basophils (%) (Auto) 0.2 % 0.0 % Neutrophils # (Auto) 5.35 K/uL 3.96 K/uL Lymphocytes # (Auto) 0.26 K/uL 0.14 K/uL Monocytes # (Auto) 0.31 K/uL 0.07 K/uL Eosinophils # (Auto) 0.07 K/uL 0.00 K/uL Basophils # (Auto) 0.01 K/uL 0.00 K/uL RDW Standard Deviation 45.1 fL 44.8 fL RDW Coefficient of Variation 13.5 % 13.6 % Immature Granulocyte % (Auto) 0.2 % 0.2 % Immature Granulocyte # (Auto) 0.01 K/uL 0.01 K/uL Sodium Level 136 mmol/L 141 mmol/L Potassium Level 4.2 mmol/L 4.1 mmol/L Chloride Level 98 mmol/L 106 mmol/L Carbon Dioxide Level 33 mmol/L 30 mmol/L Anion Gap 5.0 mmol/L 5.0 mmol/L Blood Urea Nitrogen 12 mg/dl 11 mg/dl Creatinine 0.72 mg/dl 0.67 mg/dl Est Creatinine Clear Calc Drug Dose 34.6 ml/min 70.6 ml/min Estimated GFR () 88.5 92.9 Estimated GFR (Non- 76.4 80.2 BUN/Creatinine Ratio 17.1 17.1 Random Glucose 121 mg/dl 121 mg/dl Calcium Level 9.2 mg/dl 8.6 mg/dl Total Bilirubin 0.7 mg/dl Aspartate Amino Transf (AST/SGOT) 28 U/L Alanine Aminotransferase (ALT/SGPT) 26 U/L Alkaline Phosphatase 131 U/L Troponin I < 0.015 ng/ml Pro-B-Type Natriuretic Peptide 462 pg/ml Total Protein 7.2 gm/dl Albumin 2.8 gm/dl Globulin 4.4 gm/dl Albumin/Globulin Ratio 0.6 Urine Color YELLOW Urine Appearance CLEAR Urine pH 7.0 Urine Specific [place] 1.008 Urine Protein NEG Urine Glucose (UA) NEG Urine Ketones NEG Urine Occult Blood NEG Urine Nitrite NEG Urine Bilirubin NEG Urine Urobilinogen NEG Urine Leukocyte Esterase TRACE Urine WBC (Auto) 1-5 /hpf Urine RBC (Auto) 0-4 /hpf Urine Hyaline Casts (Auto) 1-5 /lpf Urine Epithelial Cells (Auto) 5-10 /lpf Urine Bacteria (Auto) NEG Prothrombin Time 12.4 SECONDS Prothromb Time International Ratio 1.2 Magnesium Level 2.3 mg/dl Assessment and Plan 87 y/o female with a history of severe COPD w/chronic respiratory failure, hypothyroidism, RA, and osteoporosis who presents with worsening shortness of breath, weakness, fatigue, and hypoxia. RUL HCAP and/or COPD exacerbation, chronic respiratory failure--improving. Possible gram negative or MRSA PNA still not ruled out but doing better so will narrow abx -Admit to med/surg -MRSA nares negative, d/c vancomycin -D/C Zosyn after today's last dose -Increase Levaquin to 750 mg IV qd for PNA dosing as renal function improved -Xopenex/Atrovent nebs q6r and q2h prn SOB/wheezing -Solu-Medrol 30 mg IV q8h -O2 by protocol, pt back on baseline requirement of 2L -Blood cultures pending -Mucinex BID Hypothyroidism -Continue levothyroxine sodium 25 mcg PO qd RA -Weekly methotrexate and Tylenol Code Status -Level V, DO NOT RESUSCITATE Dispo -From [facility] -PT/OT evaluate and treat
[2017-05-07] MEDS ORDERED: NURSING VERBAL MED ORDER ONE (12:45)
[2017-05-07 14:23] VITALS: PULSE 83; O2SAT 96
[2017-05-07 15:48] VITALS: BP 117/72; PULSE 110; TEMP 36.8; O2SAT 91
[2017-05-07 16:00] VITALS: O2SAT 91
[2017-05-07 19:11] VITALS: PULSE 74; O2SAT 91
[2017-05-07] MEDS: NSS + 20MEQ KCL 1000ML 1,000 ML IV SCH (20:36)
[2017-05-07] MEDS ORDERED: LEVOFLOXACIN / D5W 750 MG in PREMIXED IN D5W 150 ML IV SCH (22:00)
[2017-05-08] VITALS (9 sets, daily range): BP systolic 104–130; BP diastolic 61–71; PULSE 72–97; TEMP 36.4–36.6; O2SAT 92–99
[2017-05-08] MEDS: METHYLPREDNISOLONE IV 30 MG in SYRINGE 0 ML IV SCH (00:09)
[2017-05-08] MEDS: IPRATROPIUM BROMIDE NEB SOLN 0.02% 2.5 ML VIAL INH SCH ×4 (02:13→20:10)
[2017-05-08] MEDS: LEVALBUTEROL 1.25MG/0.5ML NEB INH SCH ×4 (02:13→20:10)
[2017-05-08] MEDS: LEVOTHYROXINE 25 MCG TAB PO SCH (06:00)
[2017-05-08 06:39] LABS: HEMATOCRIT 33.6 % (37-47); HEMOGLOBIN 10.5 g/dL (12.0-16.0); IG# 0.03 K/uL (0.00-0.02); LYMPH % 1.5 %; LYMPH ABS # 0.16 K/uL (1.2-3.4); MEAN CELL VOLUME 93.6 fL (80-100); MEAN CORPUSCULAR HEMOGLOBIN 29.2 pg (25-34); MEAN CORPUSCULAR HGB CONC 31.3 g/dl (32-36); MEAN PLATELET VOLUME 9.9 fL (7.4-10.4); MONO % 2.2 %; MONO ABS # 0.24 K/uL (0.11-0.59); NEUT ABS # 10.36 K/uL (1.4-6.5); PLATELET COUNT 233 K/uL (130-400); RED CELL DISTRIBUTION WIDTH CV 13.7 % (11.5-14.5); RED CELL DISTRIBUTION WIDTH SD 46.4 fL (36.4-46.3); WHITE BLOOD COUNT 10.79 K/uL (4.8-10.8)
[2017-05-08 07:20] LABS: CALCIUM 8.7 mg/dl (8.5-10.1); CREATININE 0.72 mg/dl (0.60-1.20); POTASSIUM 4.1 mmol/L (3.5-5.1)
[2017-05-08] MEDS: GUAIFENESIN 200 MG TAB PO SCH ×2 (08:32→20:26)
[2017-05-08] MEDS: LACTOBACILLUS ACIDOPHILUS (FLORANEX) TAB PO SCH ×4 (08:32→20:23)
[2017-05-08] MEDS: CHOLECALCIFEROL 1000 INTER.UNIT TAB PO SCH (08:32)
[2017-05-08] MEDS: ENOXAPARIN 30 MG/0.3 ML SYR SC SCH (08:33)
[2017-05-08] MEDS ORDERED: VANCOMYCIN TROUGH ONE (11:30)
--- NOTE | 2017-05-08 15:06 | Progress Note ---
Subjective Date of Service: May 08, 2017. Subjective Pt evaluation today including: conversation w/ patient, conversation w/ family (daughter), physical exam, lab review, conversation w/ absence management consultant, review of inpatient medication list Pain: no pain PO Intake: adequate Voiding: no voiding problems patient feeling better again today, breathing stable minimal cough concerned she may get worse if she goes home, feels safe in hospital discussed that we just switched to PO antibiotics, make sure she is stable over next 24 hours she and daughter agreed with this plan reviewed labs, CBC and BMP stable Problem List Medical Problems: (1) COPD with exacerbation Status: Acute (2) Right upper lobe pneumonia Status: Acute Review of Systems Constitutional: + weakness, + fatigue Respiratory: + cough, + sputum, + dyspnea on exertion All Other Systems: Reviewed and Negative Medications Current Inpatient Medications Medications (Trade) Dose Ordered Sig/Alphonso Route Start Time Stop Time Status Last Admin Dose Admin Enoxaparin Sodium (Lovenox Inj) 30 mg DAILY SC 05/07/17 10:30 06/06/17 10:29 05/08/17 08:33 30 MG Acetaminophen (Tylenol Tab) 650 mg Q4H PRN PO 05/06/17 21:15 06/05/17 21:14 Levothyroxine Sodium (Synthroid Tab) 25 mcg DAILYBB PO 05/07/17 06:30 06/06/17 06:29 05/08/17 06:00 25 MCG Cholecalciferol (Vitamin D Tab) 2,000 inter.unit QAM PO 05/07/17 09:00 06/06/17 08:59 05/08/17 08:32 2,000 INTER.UNIT Ondansetron HCl (Zofran Odt) 8 mg Q6H PRN PO 05/06/17 21:30 06/05/17 21:29 Ondansetron HCl (Zofran Inj) 4 mg Q6H PRN IV 05/06/17 21:30 06/05/17 21:29 Guaifenesin (Organidin Nr Tab) 600 mg BID PO 05/07/17 09:00 06/06/17 08:59 05/08/17 08:32 600 MG Lactobacillus Acidophilus (Floranex Tab) 4 tab QIDM PO 05/07/17 08:00 06/06/17 07:59 05/08/17 11:59 4 TAB Ipratropium [place] (Atrovent 0.02% 0.5MG/2.5ML Neb) 0.5 mg Q6R INH 05/07/17 03:00 06/06/17 02:59 05/08/17 14:30 0.5 MG Levalbuterol (Xopenex 1.25MG/ 0.5ML Neb) 1.25 mg Q6R INH 05/07/17 03:00 06/06/17 02:59 05/08/17 14:30 1.25 MG Ipratropium [place] (Atrovent 0.02% 0.5MG/2.5ML Neb) 0.5 mg Q2H PRN INH 05/06/17 22:15 06/05/17 22:14 Levalbuterol (Xopenex 1.25MG/ 0.5ML Neb) 1.25 mg Q2H PRN INH 05/06/17 22:15 06/05/17 22:14 Prednisone (PredniSONE TAB) 40 mg QAM PO 05/08/17 09:00 06/07/17 08:59 05/08/17 08:33 40 MG Levofloxacin (Levaquin Tab) 750 mg DAILY@2200 PO 05/08/17 22:00 05/12/17 22:01 Objective Vital Signs Date Time Temp Pulse Resp B/P (MAP) Pulse Ox O2 Delivery O2 Flow Rate FiO2 05/08/17 15:00 36.5 88 18 104/61 (75) 97 Nasal Cannula 2.0 05/08/17 14:22 72 18 96 Nasal Cannula 2.0 05/08/17 08:00 99 Nasal Cannula 2.0 05/08/17 07:26 74 18 99 Nasal Cannula 4.0 05/08/17 07:22 36.6 81 20 112/71 (85) 99 05/08/17 00:38 36.6 97 20 105/64 (78) 95 Nasal Cannula 2.0 05/08/17 00:00 Nasal Cannula 2.0 05/07/17 19:11 74 18 91 Nasal Cannula 4.0 05/07/17 16:00 91 Nasal Cannula 3.0 05/07/17 15:48 36.8 110 20 117/72 (87) 91 Nasal Cannula 3.0 Physical Exam General Appearance: WD/WN, no apparent distress Eyes: normal inspection, EOMI, sclerae normal ENT: normal ENT inspection, hearing grossly normal, pharynx normal Neck: supple, no adenopathy, no JVD, trachea midline Respiratory/Chest: chest non-tender, no respiratory distress, no accessory muscle use, + decreased breath sounds (diffuse), + wheezing (faint, end exhalation) Cardiovascular: regular rate, rhythm, no edema, no gallop, no JVD, no murmur Abdomen: normal bowel sounds, non tender, soft, no organomegaly Extremities: normal range of motion, non-tender, no pedal edema, no calf tenderness, pelvis stable, + pertinent finding (severe rheumatoid arthritic changes) 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, alert, normal mood/affect, oriented x 3, + motor weakness (generalized) Skin: normal color, warm/dry, no rash Lymphatic: no adenopathy Laboratory Results Last 24 Hours Test 05/08/17 06:02 White Blood Count 10.79 K/uL Red Blood Count 3.59 M/uL Hemoglobin 10.5 g/dL Hematocrit 33.6 % Mean Corpuscular Volume 93.6 fL Mean Corpuscular Hemoglobin 29.2 pg Mean Corpuscular Hemoglobin Concent 31.3 g/dl Platelet Count 233 K/uL Mean Platelet Volume 9.9 fL Neutrophils (%) (Auto) 96.0 % Lymphocytes (%) (Auto) 1.5 % Monocytes (%) (Auto) 2.2 % Eosinophils (%) (Auto) 0.0 % Basophils (%) (Auto) 0.0 % Neutrophils # (Auto) 10.36 K/uL Lymphocytes # (Auto) 0.16 K/uL Monocytes # (Auto) 0.24 K/uL Eosinophils # (Auto) 0.00 K/uL Basophils # (Auto) 0.00 K/uL RDW Standard Deviation 46.4 fL RDW Coefficient of Variation 13.7 % Immature Granulocyte % (Auto) 0.3 % Immature Granulocyte # (Auto) 0.03 K/uL Sodium Level 142 mmol/L Potassium Level 4.1 mmol/L Chloride Level 108 mmol/L Carbon Dioxide Level 29 mmol/L Anion Gap 5.0 mmol/L Blood Urea Nitrogen 18 mg/dl Creatinine 0.72 mg/dl Est Creatinine Clear Calc Drug Dose 65.7 ml/min Estimated GFR () 88.5 Estimated GFR (Non- 76.4 BUN/Creatinine Ratio 25.4 Random Glucose 115 mg/dl Calcium Level 8.7 mg/dl Magnesium Level 2.5 mg/dl Assessment and Plan - RUL pneumonia, COPD exacerbation continue Levaquin 750mg PO daily, stop Zosyn and d/c Vanco yesterday continue Prednisone 40mg PO daily, plan to taper on discharge nebulizers improved again today, plan to d/c to [facility] in 24 hours - Acute on chronic hypoxic respiratory failure stable back on 2L - Rheumatoid arthritis, chronic and stable on DMARDs, methotrexate PT/OT evals, plant to go to personal care tomorrow
[2017-05-08] MEDS ORDERED: LEVOFLOXACIN 750 MG TAB PO SCH (22:00)
[2017-05-09] MEDS: IPRATROPIUM BROMIDE NEB SOLN 0.02% 2.5 ML VIAL INH SCH ×2 (01:56→07:38)
[2017-05-09] MEDS: LEVALBUTEROL 1.25MG/0.5ML NEB INH SCH ×2 (01:56→07:38)
[2017-05-09 05:52] LABS: HEMATOCRIT 35.6 % (37-47); IG# 0.04 K/uL (0.00-0.02); LYMPH % 3.2 %; LYMPH ABS # 0.39 K/uL (1.2-3.4); MEAN CELL VOLUME 94.2 fL (80-100); MEAN CORPUSCULAR HEMOGLOBIN 29.1 pg (25-34); MEAN CORPUSCULAR HGB CONC 30.9 g/dl (32-36); MEAN PLATELET VOLUME 9.7 fL (7.4-10.4); MONO % 7.3 %; MONO ABS # 0.89 K/uL (0.11-0.59); NEUT % 89.2 %; NEUT ABS # 10.95 K/uL (1.4-6.5); PLATELET COUNT 270 K/uL (130-400); RED CELL DISTRIBUTION WIDTH SD 47.4 fL (36.4-46.3); WHITE BLOOD COUNT 12.27 K/uL (4.8-10.8)
[2017-05-09] MEDS: LEVOTHYROXINE 25 MCG TAB PO SCH (05:56)
[2017-05-09 06:24] LABS: CALCIUM 8.9 mg/dl (8.5-10.1); CREATININE 0.69 mg/dl (0.60-1.20)
[2017-05-09 07:14] VITALS: BP 121/65; PULSE 84; TEMP 36.8; O2SAT 93
[2017-05-09] MEDS: LACTOBACILLUS ACIDOPHILUS (FLORANEX) TAB PO SCH ×2 (07:37→12:08)
[2017-05-09] MEDS: CHOLECALCIFEROL 1000 INTER.UNIT TAB PO SCH (07:38)
[2017-05-09] MEDS: GUAIFENESIN 200 MG TAB PO SCH (07:38)
[2017-05-09] MEDS: ENOXAPARIN 30 MG/0.3 ML SYR SC SCH (07:38)
[2017-05-09 07:59] VITALS: PULSE 84; O2SAT 93
[2017-05-09] MEDS ORDERED: PRD10 PO (10:00)
[2017-05-09] MEDS ORDERED: LVQ750 PO (10:00)
--- NOTE | 2017-05-09 10:06 | Discharge Instructions ---
Discharge Instructions Date of Service May 09, 2017. Admission Reason for Admission: Copd With Exacerbation, Right Upper Lobe Pneumonia Discharge Discharge Diagnosis / Problem: RUL pneumonia, COPD exacerbation Discharge Goals Goal(s): Improve function, Increase independence, Improve disease control Activity Recommendations Activity Level: Assistance Required Therapies: Physical Therapy, Occupational Therapy Lifting Limitations: none Exercise/Sports Limitations: as tolerated Shower/Bathe: no limitations . Additional Information Patient informed of condition: Yes Advance Directives: Yes DNR: Yes Level of Care: Other (assisted living with therapy) Communicable Disease: No Prognosis: Improving Oxygen at (LPM): 2L [place] Catheter: No Instructions / Follow-Up Instructions / Follow-Up Medications: - LEVAQUIN: 750mg daily for 3 more doses, next dose due tomorrow - PREDNISONE: taper as follows, 40mg tomorrow (05/10) and then 30mg daily on for three days, then 20mg daily for 3 days then 10mg daily for 3 days then stop Pneumonia and COPD exacerbation lungs clear, breathing is at baseline, no fever, WBC went up slightly but attributed to Prednisone since clinically she is improved complete 3 more days of Levaquin for pneumonia Prednisone taper continue nebulizers Acute on chronic hypoxia: resolved with treatment above, titrated back to 2L baseline oxygen Weakness: would benefit from in room PT/OT, evaluate and treat FOLLOW UP - Sonya FLORES this week, call for hospital follow up Current Hospital Diet Patient's current hospital diet: Regular Diet Discharge Diet Recommended Diet: Regular Diet Pending Studies Studies pending at discharge: no Physician Orders On Transfer Additional Orders: PT/OT evaluate and treat POLST Discussion: Not Applicable Medical Emergencies . Who to Call and When: Medical Emergencies: If at any time you feel your situation is an emergency, please call 911 immediately. . Non-Emergent Contact Non-Emergency issues call your: Primary Care Provider Call Non-Emergent contact if: you have a fever, you have any medication questions breathing gets worse . . "Provider Documentation" section prepared by Phu Hong. . Core Measure Problem Core Measures: None [place] Drug Monitoring Program Search Results: no issues identified
[2017-05-09 10:11] VITALS: BP 116/74; PULSE 74; O2SAT 94
--- NOTE | 2017-05-09 10:14 | Discharge Summary ---
Discharge Summary Date of Service May 09, 2017. Discharge Summary Admission Date: May 06, 2017 at 21:13 Discharge Date: May 09, 2017 Discharge Disposition: Personal care Principal Diagnosis: RUL pneumonia Problems/Secondary Diagnoses: COPD exacerbation Acute on chronic hypoxic respiratory failure Procedures: none Consultations: none Medication Reconciliation New Medications: Levofloxacin (Levofloxacin) 750 Mg Tab 750 MG PO DAILY@2200, #3 TAB 0 Refills Prednisone (Prednisone) 10 Mg Tab 40 MG PO UD for 10 Days, #22 TABS 0 Refills Continued Medications: Acetaminophen (Tylenol) 500 Mg Tab 500 MG PO Q6H PRN for MILD PAIN/FEVER, TAB DO NOT EXCEED 6 TABLET IN 24 HOURS. Acetaminophen (Tylenol) 500 Mg Tab 1000 MG PO Q6H PRN for MODERATE PAIN, TAB DO NOT EXCEED 6 TABLETS IN 24 HOURS. Cholecalciferol (Vitamin D3) 2,000 Unit Cap 2000 UNITS PO QAM for 90 Days, CAP 3 Refills Furosemide (Lasix) 20 Mg Tab 20 MG PO DAILY PRN for ANKLE EDEMA, TAB Home O2 Therapy (Oxygen) Gas 2 LITERS NA CONTINOUS, BTL Ipratropium [place] (Atrovent 0.02% Soln) 2.5 Ml Nebu 1 VIAL INH TID Levalbuterol (Levalbuterol HCl) 0.63 Mg/3 Ml Nebu 1 VIAL INH TID Levothyroxine Sodium (Levothyroxine Sodium) 25 Mcg Tab 25 MCG PO QAM for 90 Days, #90 TAB 3 Refills Methotrexate (Methotrexate) 2.5 Mg Tab 5 MG PO WK, TAB QPM EVERY WEDNESDAY. Potassium Chloride (Potassium Chloride Er) 10 Meq Tab 10 MEQ PO DAILY PRN for WHEN GIVEN LASIX for 90 Days, #90 TAB 3 Refills Discontinued Medications: Doxycycline Hyclate (Doxycycline Hyclate) 100 Mg Tab 100 MG PO BID STARTED 05/06/17 FOR 3 DAYS. Discharge Exam Patient feeling well, breathing is stable over past 48 hours. Eating well. Urinating a lot more than normal, likely from IV fluids she received. Does not drink a lot at baseline. Discussed discharge plans with patient and daughter, discussed Prednisone and Levaquin. Daughter requested some physical therapy once back at [facility]. Review of Systems: Constitutional: + weakness, No fever, No chills, No sweats, No weight loss, No fatigue, No problem reported Eyes: No worsening of vision, No eye pain, No redness, No discharge, No diplopia, No problem reported ENT: No hearing loss, No unusual epistaxis, No nasal symptoms, No sore throat, No tinnitus, No dental problems, No trouble swallowing, No problem reported Respiratory: + dyspnea on exertion, No cough, No sputum, No wheezing, No shortness of breath, No dyspnea at rest, No hemoptysis, No problem reported Cardiovascular: No chest pain, No orthopnea, No PND, No edema, No claudication, No palpitations, No problem reported Abdomen: No pain, No nausea, No vomiting, No diarrhea, No constipation, No GI bleeding, No problem reported Musculoskeletal: No joint pain, No muscle pain, No swelling, No calf pain, No problem reported Genitourinary - Female: + urinary frequency, No dysuria, No urinary urgency , No urinary incontinence, No urinary retention, No hematuria Neurologic: No memory loss, No paralysis, No weakness, No numbness/tingling , No vertigo, No balance problems, No problem reported Psychiatric: No depression symptoms, No anhedonism, No anxiety, No insomnia , No substance abuse, No problem reported Endocrine: No fatigue, No excessive thirst, No excessive urination, No problem reported Hematologic / Lymphatic: No abnormal bleeding/bruising, No clotting problems , No swollen lymph nodes, No night sweats, No problem reported Integumentary: No rash, No itch, No new/changing skin lesions, No color change, No bleeding, No problem reported Physical Exam: General Appearance: no apparent distress, + thin Eyes: normal inspection, EOMI, sclerae normal ENT: normal ENT inspection, hearing grossly normal, pharynx normal Neck: supple, no adenopathy, no JVD, trachea midline Respiratory/Chest: chest non-tender, lungs clear, normal breath sounds, no respiratory distress, no accessory muscle use Cardiovascular: regular rate, rhythm, no edema, no gallop, no JVD, no murmur , normal peripheral pulses Abdomen / GI: normal bowel sounds, non tender, soft, no organomegaly Extremities: normal inspection, no calf tenderness, normal capillary refill , no pedal edema, normal range of motion, pelvis stable Neurologic/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: 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, alert, normal mood/affect , normal reflexes, oriented x 3, + motor weakness Skin: normal color, warm/dry, no rash Hospital Course - RUL pneumonia, COPD exacerbation initially treated with Vanco, Zosyn and Levaquin tapered back to just Levaquin after 24 hours responded well, will complete 3 more days of Levaquin 750mg PO daily Prednisone 40mg PO daily, taper instructions provided in discharge planning nebulizers breathing stable for 48 hours, ready for discharge - Acute on chronic hypoxic respiratory failure stable back on 2L for two days - Rheumatoid arthritis, chronic and stable on DMARDs, methotrexate d/c back to assisted living, will continue with PT/OT to improve strength Total Time Spent: Greater than 30 minutes This includes examination of the patient, discharge planning, medication reconciliation, and communication with other providers. Discharge Instructions Please refer to the electronic Patient Visit Report (Discharge Instructions) for additional information. Follow-Up Sonya FLORES in one week Additional Copies To Lalitha Monsalve; Sonya Barakat C.R.N.P.
[2017-05-09 10:28] VITALS: BP 116/74; PULSE 74; TEMP 36.8; O2SAT 94
[2017-05-09] MEDS ORDERED: LEVOFLOXACIN 750 MG TAB PO ONE (10:30)
--- NOTE | 2017-05-12 11:58 | EDITING REQUIRED CODING QUERY ---
CODING QUERY To promote full compliance with coding requirements relating to patient care, provider participation is requested in all cases of yeast fermentation attendant uncertainty. Please assist us with the question(s) below: Coding Question(s): The 05/07/17 Progress Note documents possible gram negative or MRSA PNA still not ruled out but doing better so will narrow abx. There is no further mention on Progress Notes or Discharge Summary. Please clarify below, in your clinical opinion, regarding the Pneumonia. ( ) Possible Gram Negative or MRSA Pneumonia ( x ) Possible Gram Negative or MRSA Pneumonia were ruled out Physician's Response(s): Thank you Gaby Leung Principal Diagnosis: "_that condition established after study, to be chiefly responsible for occasioning the admission of the patient to the hospital for care." Co-Existing Principal Diagnosis: "_when two or more diagnoses equally meet the criteria for principal diagnosis as determined by the circumstances of admission, diagnostic work up, and/or therapy provided, and the Alphabetic Index, Tabular List, or another coding guideline does not provide sequencing direction, any one of the diagnoses may be sequenced first." "When the physician has documented what appears to be a current diagnosis in the body of the record, but has not included the diagnosis in the final diagnostic statement, the physician should be asked whether the diagnosis should be added." (Source Coding [facility] 2 QTR90. p3-4)
== END 2017-05-09 12:30 | disposition home or self-care (01) | DRG 193 ==
LOC: EDBD 14:13 → C.EDA 14:14 → C.MS2W 21:13 → ENRESERV 21:38
PROVIDERS: ADMIT Hospitalist; ATTEND Internal Medicine
DX: J18.9 Pneumonia, unspecified organism (principal); J96.21 Acute and chronic respiratory failure with hypoxia; J44.0 Chronic obstructive pulmonary disease with (acute) lower respiratory infection; E03.9 Hypothyroidism, unspecified; M06.9 Rheumatoid arthritis, unspecified; Z79.899 Other long term (current) drug therapy; Z66 Do not resuscitate; Z87.891 Personal history of nicotine dependence

== ENCOUNTER 2017-05-24 09:02 | Emergency (ER) | payer OTHER, BC ==
[~2017-05-24] VITALS: Ht 170.2 cm; Wt 39.7 kg
[~2017-05-24 09:02] MED LIST: ACET-1256 PO; ATRINSX INH; CHOL2000 PO; FURO-85 PO; LEVO25TA5 PO; LVQ750 PO; METH2.5T PO; OXGN; POTA-74 PO; PRD10 PO; XPNINS INH
[2017-05-24 09:12] VITALS: TEMP 36.6; O2SAT 100
[2017-05-24] MEDS ORDERED: MAGNESIUM SULFATE 1GM / D5W 1 GM BAG IV STA (09:24)
[2017-05-24] MEDS ORDERED: ALBUT/IPRATROP 3MG/0.5MG NEB 3 ML VIAL INH STA (09:24)
[2017-05-24] MEDS ORDERED: SODIUM CHLORIDE 0.9% 500ML 500 ML IV STA ×2 (09:24→11:05)
[2017-05-24 09:27] VITALS: Ht 170.2 cm; Wt 39.7 kg
--- NOTE | 2017-05-24 09:40 | DIAGNOSTIC IMAGING REPORT ---
SINGLE VIEW CHEST CLINICAL HISTORY: Dyspnea. FINDINGS: An AP, portable, upright chest radiograph is compared to study dated 05/06/2017. The examination is degraded by portable technique and patient rotation. The heart is normal in size and there is atherosclerotic calcification of the thoracic aorta. Enlargement of the main pulmonary arteries suggests pulmonary artery hypertension. Advanced emphysema is suspected and there is chronic interstitial thickening. Airspace consolidation is present at the right apex. The left lung is grossly clear. No large pleural effusion or pneumothorax is seen. The skeletal structures are osteopenic. The bony thorax is grossly intact. IMPRESSION: 1. Suspect advanced emphysema. 2. Airspace consolidation is seen in the right upper lobe end of the right apex. Correlate clinically for evidence of an infectious/inflammatory pneumonitis. Radiographic follow-up to resolution is recommended. Electronically signed by: Golden Schwartz M.D. 05/24/2017 9:39 AM Dictated Date/Time: 05/24/2017 9:36 AM
[2017-05-24 10:00] LABS: BASO % 0.1 %; BASO ABS # 0.01 K/uL (0-0.2); EOS % 0.7 %; EOS ABS # 0.06 K/uL (0-0.5); HEMATOCRIT 39.3 % (37-47); HEMOGLOBIN 12.7 g/dL (12.0-16.0); IG# 0.03 K/uL (0.00-0.02); LYMPH % 3.2 %; LYMPH ABS # 0.29 K/uL (1.2-3.4); MEAN CELL VOLUME 91.6 fL (80-100); MEAN CORPUSCULAR HEMOGLOBIN 29.6 pg (25-34); MEAN CORPUSCULAR HGB CONC 32.3 g/dl (32-36); MEAN PLATELET VOLUME 9.9 fL (7.4-10.4); MONO ABS # 0.36 K/uL (0.11-0.59); NEUT % 91.7 %; NEUT ABS # 8.21 K/uL (1.4-6.5); PLATELET COUNT 163 K/uL (130-400); RED CELL DISTRIBUTION WIDTH CV 14.8 % (11.5-14.5); RED CELL DISTRIBUTION WIDTH SD 49.3 fL (36.4-46.3); WHITE BLOOD COUNT 8.96 K/uL (4.8-10.8)
[2017-05-24 10:11] LABS: INR 1.1 (0.9-1.1); PTT PATIENT 25.5 SECONDS (21.0-31.0)
[2017-05-24 10:25] LABS: BLOOD UREA NITROGEN 20 mg/dl (7-18); CALCIUM 8.6 mg/dl (8.5-10.1); CARBON DIOXIDE 29 mmol/L (21-32); CREATININE 0.81 mg/dl (0.60-1.20); GLUCOSE 121 mg/dl (70-99); SODIUM 136 mmol/L (136-145)
--- NOTE | 2017-05-24 10:53 | EMERGENCY ROOM VISIT NOTE ---
History Report prepared by Yumiko: Rolando Herrera Under the Supervision of: Dr. Huy Youngblood M.D. First contact with patient: 09:03 Chief Complaint: RESPIRATORY PROBLEMS Stated Complaint: RESPIRATORY History of Present Illness The patient is a 87 year old white female with a past medical history of RA, COPD, osteoporosis and hypothyroid who presents to the ED by EMS with a cc of constant shortness of breath beginning two weeks ago. Patient is a resident at [facility]. Positive dry cough. Patient was seen in the ED two weeks ago for similar symptoms and was diagnosed with pneumonia and COPD exacerbation. She was given a breathing treatment with steroids en route which improved her symptoms. Negative chest pain, nausea, abnormal leg swelling. Patient notes that she had an anxiety attack this week, and has never had anxiety in the past. She notes that she was taken off Prednisone this week (ankle swelling improved when Prednisone stopped). Patient is listed as DNR. No history of blood clots. Reports not having an appetite for several days. Patient has not noticed any rashes, but states that her legs feel a bit itchy. Source of History: patient Onset: Two weeks ago Quality: other (shortness of breath) Timing: constant Modifying Factors (Relieving): other (breathing treatments and steroids) Associated Symptoms: + cough (dry), No chest pain, No nausea, No rash Note: Negative: abnormal leg swelling. Positive: decreased appetite. Review of Systems See HPI for pertinent positives and negatives. A total of ten systems were reviewed and were otherwise negative. Past Medical & Surgical Medical Problems: (1) COPD (chronic obstructive pulmonary disease) (2) Hypothyroid (3) Osteoporosis (4) Rheumatoid arthritis Family History No pertinent family history stated. Social History Smoking Status: Former Smoker Current/Historical Medications Scheduled Azithromycin (Zithromax Z-Castro), 0 PO UD Cholecalciferol (Vitamin D3), 2,000 UNITS PO QAM Home O2 Therapy (Oxygen), 2 LITERS NA CONTINOUS Ipratropium [place] (Atrovent 0.02% Soln), 1 VIAL INH TID Levalbuterol (Levalbuterol HCl), 1 VIAL INH TID Levothyroxine Sodium (Levothyroxine Sodium), 25 MCG PO QAM Methotrexate (Methotrexate), 5 MG PO WK Prednisone (Prednisone), 0 PO DAILY Scheduled PRN Acetaminophen (Tylenol), 500 MG PO Q6H PRN for MILD PAIN/FEVER Acetaminophen (Tylenol), 1,000 MG PO Q6H PRN for MODERATE PAIN Furosemide (Lasix), 20 MG PO DAILY PRN for ANKLE EDEMA Potassium Chloride (Potassium Chloride Er), 10 MEQ PO DAILY PRN for WHEN GIVEN LASIX Allergies Coded Allergies: No Known Allergies (Unverified , 05/24/17) Physical Exam Vital Signs Date Time Temp Pulse Resp B/P (MAP) Pulse Ox O2 Delivery O2 Flow Rate FiO2 05/24/17 13:30 99 22 99/60 100 Nasal Cannula 2.0 05/24/17 13:00 103 24 96/52 100 Nasal Cannula 2.0 05/24/17 12:50 106 05/24/17 12:00 105 24 101/63 100 Nasal Cannula 2.0 05/24/17 11:00 111 27 106/72 100 Nasal Cannula 2.0 05/24/17 10:00 120 26 111/61 100 Nebulizer 9.0 05/24/17 09:13 114 05/24/17 09:12 100 Nasal Cannula 2.0 05/24/17 09:12 36.6 105 24 125/92 100 Nasal Cannula 2.0 05/24/17 09:12 100 Nasal Cannula 2.0 05/24/17 09:12 100 Nasal Cannula 2.0 Physical Exam GENERAL: Awake, alert, thin-appearing, mild distress. Nasal canula in place. Hard of hearing. HENT: Normocephalic, atraumatic. EYES: Normal conjunctiva. Sclera non-icteric. NECK: Supple. No nuchal rigidity. FROM. RESPIRATORY: Inspiratory and expiratory wheezes. Mildly prolonged expiratory phase. Using accessory muscles to breath. CARDIAC: Tachycardic rate with a regular rhythm. No MRG ABDOMEN: Soft, NTND, BS+ MSK: No chest wall TTP, no LE edema NEURO: GCS 15, CN 2-12 intact, moves all 4s on command SKIN: Lacy, red, blanching, pruritic rash on the bilateral lower extremities. Medical Decision & Procedures ER Provider Diagnostic Interpretation: Radiology results as stated below per my review and radiologist interpretation: SINGLE VIEW CHEST FINDINGS: An AP, portable, upright chest radiograph is compared to study dated 05/06/2017. The examination is degraded by portable technique and patient rotation. The heart is normal in size and there is atherosclerotic calcification of the thoracic aorta. Enlargement of the main pulmonary arteries suggests pulmonary artery hypertension. Advanced emphysema is suspected and there is chronic interstitial thickening. Airspace consolidation is present at the right apex. The left lung is grossly clear. No large pleural effusion or pneumothorax is seen. The skeletal structures are osteopenic. The bony thorax is grossly intact. IMPRESSION: 1. Suspect advanced emphysema. 2. Airspace consolidation is seen in the right upper lobe end of the right apex. Correlate clinically for evidence of an infectious/inflammatory pneumonitis. Radiographic follow-up to resolution is recommended. Electronically signed by: Golden Schwartz M.D. 05/24/2017 9:39 AM Laboratory Results 05/24/17 09:48 Red Blood Count 4.29, Mean Corpuscular Volume 91.6, Mean Corpuscular Hemoglobin 29.6, Mean Corpuscular Hemoglobin Concent 32.3, Mean Platelet Volume 9.9, Neutrophils (%) (Auto) 91.7, Lymphocytes (%) (Auto) 3.2, Monocytes (%) (Auto) 4.0, Eosinophils (%) (Auto) 0.7, Basophils (%) (Auto) 0.1, Neutrophils # (Auto) 8.21, Lymphocytes # (Auto) 0.29, Monocytes # (Auto) 0.36, Eosinophils # (Auto) 0.06, Basophils # (Auto) 0.01 05/24/17 09:48 Test 05/24/17 09:48 White Blood Count 8.96 K/uL (4.8-10.8) Red Blood Count 4.29 M/uL (4.2-5.4) Hemoglobin 12.7 g/dL (12.0-16.0) Hematocrit 39.3 % (37-47) Mean Corpuscular Volume 91.6 fL (80-100) Mean Corpuscular Hemoglobin 29.6 pg (25-34) Mean Corpuscular Hemoglobin Concent 32.3 g/dl (32-36) Platelet Count 163 K/uL (130-400) Mean Platelet Volume 9.9 fL (7.4-10.4) Neutrophils (%) (Auto) 91.7 % Lymphocytes (%) (Auto) 3.2 % Monocytes (%) (Auto) 4.0 % Eosinophils (%) (Auto) 0.7 % Basophils (%) (Auto) 0.1 % Neutrophils # (Auto) 8.21 K/uL (1.4-6.5) Lymphocytes # (Auto) 0.29 K/uL (1.2-3.4) Monocytes # (Auto) 0.36 K/uL (0.11-0.59) Eosinophils # (Auto) 0.06 K/uL (0-0.5) Basophils # (Auto) 0.01 K/uL (0-0.2) RDW Standard Deviation 49.3 fL (36.4-46.3) RDW Coefficient of Variation 14.8 % (11.5-14.5) Immature Granulocyte % (Auto) 0.3 % Immature Granulocyte # (Auto) 0.03 K/uL (0.00-0.02) Prothrombin Time 11.3 SECONDS (9.0-12.0) Prothromb Time International Ratio 1.1 (0.9-1.1) Activated Partial Thromboplast Time 25.5 SECONDS (21.0-31.0) Partial Thromboplastin Ratio 1.0 Venous Blood pH 7.31 (7.36-7.41) Venous Blood Partial Pressure CO2 61 mmHg (38.0-50.0) Venous Blood Partial Pressure O2 30 mmHg Venous Blood HCO3 30 mmol/L Venous Blood Oxygen Saturation < 60.0 % Venous Blood Base Excess 1.9 mEq/L Anion Gap 7.0 mmol/L (3-11) Est Creatinine Clear Calc Drug Dose 31.8 ml/min Estimated GFR () 76.8 Estimated GFR (Non- 66.2 BUN/Creatinine Ratio 24.7 (10-20) Calcium Level 8.6 mg/dl (8.5-10.1) Troponin I < 0.015 ng/ml (0-0.045) Pro-B-Type Natriuretic Peptide 287 pg/ml (0-1800) Laboratory results reviewed by me Medications Administered Medications (Trade) Dose Ordered Sig/Alphonso Route Start Time Stop Time Status Last Admin Dose Admin Albuterol/ Ipratropium (Duoneb) 6 ml NOW STAT INH 05/24/17 09:24 05/24/17 09:26 DC 05/24/17 09:35 6 ML Magnesium Sulfate (Magnesium Sulfate) 1 gm NOW STAT IV 05/24/17 09:24 05/24/17 09:26 DC 05/24/17 09:35 1 GM Sodium Chloride 500 ml @ 999 mls/hr Q31M STAT IV 05/24/17 09:24 05/24/17 09:54 DC 05/24/17 09:36 999 MLS/HR Sodium Chloride 500 ml @ 999 mls/hr Q31M STAT IV 05/24/17 11:05 05/24/17 11:35 DC 05/24/17 11:13 999 MLS/HR Lorazepam (Ativan Tab) 0.25 mg NOW STAT PO 05/24/17 11:05 05/24/17 11:07 DC 05/24/17 11:13 0.25 MG ECG Per My Interpretation Indication: SOB/dyspnea Rate (beats per minute): 105 Rhythm: sinus tachycardia Findings: other (Normal intervals. Normal axis. Right atrial enlargement. No STS changes or TWI.) ED Course 0916: The patient was evaluated in room B6. A complete history and physical exam was performed. 1103: I checked in on the patient. She appears anxious. She clinically sounds better to auscultation. I discussed the patient's case with her daughter. 1210: I spoke with the patient. Her lungs sound clear. The case management specialist will speak with the patient about setting up outpatient care. 1238: I spoke with the case management specialist. She states that the patient does not believe assisted to be necessary, but would like additional care. The case management specialist plans to arrange for this at [facility]. 1325: I reevaluated the patient. Discussed results and discharge instructions: she verbalized understanding and agreement. The patient is ready for discharge. Medical Decision The patient is a 87 year old white female with a past medical history of RA, COPD, osteoporosis and hypothyroid who presents to the ED with a cc of constant shortness of breath beginning two weeks ago. Differential diagnosis: Etiologies such as infections, reactive airway disease, pneumonia, pneumothorax , COPD, CHF, cardiac ischemia, pulmonary embolism, musculoskeletal, gastrointestinal, as well as others were entertained. Prior records were reviewed. The patient was recently seen and admitted back at the end of April for a COPD exacerbation right upper lobe pneumonia. Patient was seen and evaluated at the bedside. Patient was complaining of some shortness of breath. Patient states that has been insidious since her most recent discharge however acutely worse over the last 1-2 days. Patient does have a mild dry cough but it is nonproductive. The patient was given methylprednisolone as well as a DuoNeb treatment prior to arrival. Patient on exam does have mild inspiratory and expiratory wheezes. Patient also does have accessory muscle use. Patient is on 2 L chronically. Patient is not hypoxic. Patient did have blood work completed, EKG, VBG, troponin, chest x-ray. Patient 's chest x-ray does show a persistent right upper lobe opacity possible pneumonitis or perhaps resolving right upper lobe pneumonia given the patient's recent illness. Patient's VBG does show concern for hypercapnic respiratory acidosis. Patient's kidney function and electrolytes fairly unremarkable. Patient white blood cell count normal. Patient's EKG does show sinus tachycardia. Patient was given mag in addition to additional 2 nebs. Upon reassessment of the patient the patient did have some mild tachycardia. This is likely related to some mild dehydration as well as the duo nebs. Patient does relate that she does get some anxiety attacks which may also contribute to her shortness of breath and tachypnea. Patient was given a small amount of p.o. Ativan as well as some additional IVF. Upon reassessment the patient's lungs were clear the patient was not tachypneic nor is she requiring additional oxygen. The patient's heart rate was in the low 100s. Given that the patient looks well and the patient is sleeping comfortably without any tachypnea or increased O2 requirement I believe the patient is suitable for outpatient follow-up and discharge. I did discuss the patient with the case management specialist further relayed additional concerns for possibly increasing her care at her living facility. The woman with whom she spoke said that they would help increase her care as needed. I did discuss all this with the patient's daughter at the bedside. They are agreeable to the plan of care. Patient was given strict follow-up, discharge, and return precautions. All questions were answered. Patient was deemed suitable for outpatient follow-up at this time. Patient agreed with the plan of care and was safely discharged home. Medication Reconcilliation Current Medication List: was personally reviewed by me Blood Pressure Screening Patient's blood pressure: Normal blood pressure Blood pressure disposition: Did not require urgent referral Impression Primary Impression: COPD exacerbation Scribe Attestation The scribe's documentation has been prepared under my direction and personally reviewed by me in its entirety. I confirm that the note above accurately reflects all work, treatment, procedures, and medical decision making performed by me. Departure Information Dispostion Home / Self-Care Prescriptions Azithromycin (ZITHROMAX Z-CASTRO) 250 Mg Tab 0 PO UD, #1 PKT Prov: Huy Youngblood M.D. 05/24/17 Prednisone (Prednisone) 20 Mg Tab 0 PO DAILY, #14 TAB 3 TABS DAILY FOR 2 DAYS, THEN 2 TABS DAILY FOR 2 DAYS, THEN 1 TAB DAILY FOR 2 DAYS, THEN 1/2 TAB DAILY FOR 2 DAYS. Prov: Huy Youngblood M.D. 05/24/17 Referrals Sonya Barakat [facility] (PCP) Patient Instructions COPD Dc, My [facility] Additional Instructions Please return to the emergency department if you have worsening or recurrent symptoms not amenable to at-home treatment. Please call for a follow-up appointment with her primary care physician. Please take your medications as prescribed. If you have other concerns and/or complaints please feel free to also call your primary care physician's office or return the ED for further evaluation, management, and treatment. Take your medications as prescribed. If taking an antibiotic consider taking a probiotic and/or eating yogurt, but at the least, please take with food as it can cause upset stomach. You have been examined and treated today on an emergency basis only. This is not a substitute for, or an effort to provide, complete comprehensive medical care. It is impossible to recognize and treat all injuries or illnesses in a single emergency department visit. It is therefore important that you follow up closely with [facility], your PCP, and/or your specialist(s). Call as soon as possible for an appointment. Thank you for your time and consideration. I look forward to speaking with you again soon. Please don't hesitate to call us if you have any questions.
[2017-05-24] MEDS ORDERED: LORAZEPAM 0.5 MG TAB PO STA (11:05)
[2017-05-24] MEDS ORDERED: PRED20TA PO (13:39)
[2017-05-24] MEDS ORDERED: AZITTAB PO (13:39)
[2017-05-24 14:50] VITALS: BP 115/74; PULSE 102; O2SAT 100
== END 2017-05-24 14:52 | disposition home or self-care (01) ==
LOC: EDBD 09:02 → C.EDB 09:03
DX: J44.1 Chronic obstructive pulmonary disease with (acute) exacerbation (principal); M06.9 Rheumatoid arthritis, unspecified; M81.0 Age-related osteoporosis without current pathological fracture; E03.9 Hypothyroidism, unspecified; Z87.891 Personal history of nicotine dependence; Z99.81 Dependence on supplemental oxygen

== ENCOUNTER 2017-06-22 12:43 | Inpatient (IN) | payer OTHER, BC ==
[~2017-06-22] VITALS: Ht 157.5 cm; Wt 39.9 kg
[~2017-06-22 12:43] MED LIST changes: -LVQ750 PO; -PRD10 PO; +PRED20TA PO
--- NOTE | 2017-06-22 14:13 | DIAGNOSTIC IMAGING REPORT ---
CHEST ONE VIEW PORTABLE CLINICAL HISTORY: 87 years-old Female presenting with SOB. TECHNIQUE: Portable upright AP view of the chest was obtained. COMPARISON: 05/24/2017. FINDINGS: Atherosclerosis of the aortic arch. Cardiac silhouette normal in size. Lungs hyperinflated. Heterogeneity of lung parenchyma. Reticulonodular opacities in the right apex slightly decreased from prior. No large pleural effusion or pneumothorax. Osseous structures normal. IMPRESSION: 1. Slight decrease in right apical reticulonodular opacities, which likely represent evolving postinfectious or postinflammatory infiltrates. These should be followed to resolution given the patient's underlying emphysema. Electronically signed by: Will Slaughter M.D. 06/22/2017 2:11 PM Dictated Date/Time: 06/22/2017 2:10 PM
[2017-06-22] MEDS ORDERED: METHYLPREDNISOLONE 125 MG VIAL IV STA (14:18)
[2017-06-22] MEDS ORDERED: ALBUT/IPRATROP 3MG/0.5MG NEB 3 ML VIAL INH ONE (14:30)
[2017-06-22 14:46] VITALS: PULSE 78; O2SAT 99
[2017-06-22] MEDS ORDERED: ARFO15NE INH (14:48)
[2017-06-22] MEDS ORDERED: MOXI400T2 PO (14:48)
[2017-06-22 14:52] LABS: INR 1.1 (0.9-1.1); PTT PATIENT 27.2 SECONDS (21.0-31.0)
[2017-06-22] MEDS ORDERED: MORP10SO PO (14:54)
[2017-06-22] MEDS ORDERED: ONDA4TAB46 PO (14:54)
[2017-06-22] MEDS ORDERED: [UNRECOGNIZED DRUG - CODE] TOP (14:54)
[2017-06-22] MEDS ORDERED: CITA20TA9 PO (14:54)
[2017-06-22 15:01] LABS: BASO % 0.2 %; BASO ABS # 0.01 K/uL (0-0.2); EOS % 2.8 %; EOS ABS # 0.12 K/uL (0-0.5); HEMATOCRIT 37.3 % (37-47); IG# 0.02 K/uL (0.00-0.02); LYMPH % 6.8 %; LYMPH ABS # 0.29 K/uL (1.2-3.4); MEAN CELL VOLUME 90.3 fL (80-100); MEAN CORPUSCULAR HEMOGLOBIN 29.1 pg (25-34); MEAN CORPUSCULAR HGB CONC 32.2 g/dl (32-36); MEAN PLATELET VOLUME 9.9 fL (7.4-10.4); MONO % 5.2 %; MONO ABS # 0.22 K/uL (0.11-0.59); NEUT % 84.5 %; NEUT ABS # 3.59 K/uL (1.4-6.5); PLATELET COUNT 205 K/uL (130-400); RED CELL DISTRIBUTION WIDTH CV 14.8 % (11.5-14.5); RED CELL DISTRIBUTION WIDTH SD 48.2 fL (36.4-46.3); WHITE BLOOD COUNT 4.25 K/uL (4.8-10.8)
[2017-06-22 15:18] LABS: ALBUMIN 2.5 gm/dl (3.4-5.0); ALT/SGPT 20 U/L (12-78); AST/SGOT 22 U/L (15-37); BLOOD UREA NITROGEN 10 mg/dl (7-18); CALCIUM 9.1 mg/dl (8.5-10.1); CARBON DIOXIDE 38 mmol/L (21-32); CREATININE 0.67 mg/dl (0.60-1.20); GLUCOSE 109 mg/dl (70-99); POTASSIUM 3.5 mmol/L (3.5-5.1); SODIUM 138 mmol/L (136-145)
[2017-06-22 15:23] LABS: ALKALINE PHOSPHATASE 107 U/L (45-117); TOTAL PROTEIN 5.7 gm/dl (6.4-8.2)
[2017-06-22] MEDS ORDERED: POLYETHYLENE (MIRALAX) 17 GM PACK PO PRN (16:15)
[2017-06-22] MEDS ORDERED: ACETAMINOPHEN 325 MG TAB PO PRN (16:15)
[2017-06-22] MEDS ORDERED: ALUMINUM/MAGNESIUM/SIMETH (MAALOX MAX) 30 ML UDC PO PRN (16:15)
[2017-06-22] MEDS ORDERED: LEVALBUTEROL 1.25MG/3ML NEB INH PRN (16:15)
[2017-06-22] MEDS ORDERED: ONDANSETRON INJ 2 MG/ML 2 ML VIAL IV PRN (16:15)
[2017-06-22] MEDS ORDERED: MAGNESIUM HYDROXIDE SUSP 30 ML UDC PO PRN (16:15)
[2017-06-22] MEDS ORDERED: MORPHINE SULFATE PO PRN (16:15)
[2017-06-22] MEDS ORDERED: POTASSIUM CHLORIDE 10 MEQ TABCR PO PRN (16:15)
[2017-06-22] MEDS ORDERED: MoRPHine SULFATE 2 MG/ML CARP IV PRN (16:15)
[2017-06-22] MEDS ORDERED: NITROGLYCERIN 0.4 MG SL PER TAB CHARGE SL PRN (16:15)
[2017-06-22] MEDS ORDERED: PIPERACILL/TAZOBAC CONSULT ACTIVE PRN (16:30)
--- NOTE | 2017-06-22 16:37 | History and Physical ---
History & Physical Date & Time of Service: Jun 22, 2017 at 16:16 Chief Complaint: Weakness Primary Care Physician: Miriam Freeman C.R.NMeenakshiPMeenakshi History of Present Illness Source: patient, family (daughter/son-in-law at bedside), clinic records, hospital records Patient is a pleasant 87 y/o female, with PMHx of RA, hypothyroidism, peripheral edema, anxiety/depression, and COPD, who presented to the ED from [facility] due to worsening CXR. History came largely from daughter and ED notes as patient is a poor historian. Per patient, she has been feeling progressively SOB for "a few months now." She denies any other complaints. Per daughter, patient was admitted in April for PNA. She was discharged to [facility] on antibiotics. Since that time, [facility] has been doing routine CXR to ensure resolution. She was placed on Moxifloxacin on 06/18. Today, she appeared hypoxic with blue lips and a repeat CXR was done. Per daughter, [facility] STONE POLISHER stated it was read as worsening PNA. CXR in ED reported decrease in opacities. Patient denies any fever, chills, sweats, lightheadedness , dizziness, vision changes, CP, palpitations, edema, wheezing, cough, abdominal pain, nausea, vomiting, diarrhea, urinary symptoms, melena, numbness/ tingling, weakness, muscle/joint pain, anxiety/depression, active bleeding, or new skin discoloration/changes. Per daughter, discussed possible palliative care consultation last time. Patient is currently DNR. Does NOT want extensive treatment/workup. Family would like palliative care consultation this stay. Past Medical/Surgical History Medical Problems: Acute and chronic respiratory failure with hypoxia RA hypothyroidism peripheral edema COPD Anxiety/depression Family History Colon cancer Social History Smoking Status: Former Smoker Alcohol Use: none Housing status: [facility] Allergies Coded Allergies: No Known Allergies (Unverified , 06/22/17) Home Medications Scheduled Arformoterol Tartrate (Brovana), 15 MCG INH BID Cholecalciferol (Vitamin D3), 2,000 UNITS PO QAM Citalopram Hydrobromide (Celexa), 10 MG PO HS Emollient (Cerave), 1 APPLN TOP BID Home O2 Therapy (Oxygen), 2 LITERS NA CONTINOUS Ipratropium [place] (Atrovent 0.02% Soln), 1 VIAL INH TID Levalbuterol (Levalbuterol HCl), 1 VIAL INH TID Levothyroxine Sodium (Levothyroxine Sodium), 25 MCG PO QAM Methotrexate (Methotrexate), 5 MG PO WK Moxifloxacin Hcl (Avelox), 400 MG PO DAILY Scheduled PRN Acetaminophen (Tylenol), 500 MG PO Q6H PRN for MILD PAIN/FEVER Acetaminophen (Tylenol), 1,000 MG PO Q6H PRN for MODERATE PAIN Furosemide (Lasix), 20 MG PO DAILY PRN for ANKLE EDEMA Morphine Sulfate (Morphine Sulfate), 1 ML PO Q1H PRN for PAIN&DYSPNEA Ondansetron Hcl (Zofran), 4 MG PO Q4H PRN for Nausea Potassium Chloride (Potassium Chloride Er), 10 MEQ PO DAILY PRN for WHEN GIVEN LASIX Physical Exam Vital Signs Date Time Temp Pulse Resp B/P (MAP) Pulse Ox O2 Delivery O2 Flow Rate FiO2 06/22/17 15:27 77 20 89/57 100 Nebulizer 6.0 06/22/17 15:22 84 18 88/48 100 Nebulizer 6.0 06/22/17 14:46 78 18 99 Nasal Cannula 4.0 06/22/17 14:43 75 25 98 06/22/17 14:13 77 21 100 06/22/17 13:43 77 17 100 06/22/17 13:13 79 20 100 06/22/17 13:10 80 06/22/17 13:07 35.7 06/22/17 13:01 Nasal Cannula 4.0 06/22/17 12:57 84 20 120/78 100 Nasal Cannula 4.0 06/22/17 12:52 120/78 General Appearance: no apparent distress, + cachetic, + thin Head: normocephalic, atraumatic Eyes: normal inspection, PERRL ENT: + pertinent finding ([place]) Neck: supple Respiratory/Chest: no respiratory distress, no accessory muscle use, + decreased breath sounds (throughout all lung alejandro ) Cardiovascular: regular rate, rhythm Abdomen/GI: normal bowel sounds, non tender, soft Back: normal inspection Extremities/Musculoskelatal: no calf tenderness, + swelling (+1 pitting edema of BLEs), + pertinent finding (chronic stasis changes of BLEs) Neurologic/Psych: alert, oriented x 3 Skin: warm/dry, no rash, + pallor Diagnostics Laboratory Results Results Past 24 Hours Test 06/22/17 14:30 06/22/17 14:45 Range/Units Prothrombin Time 11.5 9.0-12.0 SECONDS Prothromb Time International Ratio 1.1 0.9-1.1 Activated Partial Thromboplast Time 27.2 21.0-31.0 SECONDS Partial Thromboplastin Ratio 1.0 White Blood Count 4.25 4.8-10.8 K/uL Red Blood Count 4.13 4.2-5.4 M/uL Hemoglobin 12.0 12.0-16.0 g/dL Hematocrit 37.3 37-47 % Mean Corpuscular Volume 90.3 80-100 fL Mean Corpuscular Hemoglobin 29.1 25-34 pg Mean Corpuscular Hemoglobin Concent 32.2 32-36 g/dl Platelet Count 205 130-400 K/uL Mean Platelet Volume 9.9 7.4-10.4 fL Neutrophils (%) (Auto) 84.5 % Lymphocytes (%) (Auto) 6.8 % Monocytes (%) (Auto) 5.2 % Eosinophils (%) (Auto) 2.8 % Basophils (%) (Auto) 0.2 % Neutrophils # (Auto) 3.59 1.4-6.5 K/uL Lymphocytes # (Auto) 0.29 1.2-3.4 K/uL Monocytes # (Auto) 0.22 0.11-0.59 K/uL Eosinophils # (Auto) 0.12 0-0.5 K/uL Basophils # (Auto) 0.01 0-0.2 K/uL RDW Standard Deviation 48.2 36.4-46.3 fL RDW Coefficient of Variation 14.8 11.5-14.5 % Immature Granulocyte % (Auto) 0.5 % Immature Granulocyte # (Auto) 0.02 0.00-0.02 K/uL Sodium Level 138 136-145 mmol/L Potassium Level 3.5 3.5-5.1 mmol/L Chloride Level 99 98-107 mmol/L Carbon Dioxide Level 38 21-32 mmol/L Anion Gap 1.0 3-11 mmol/L Blood Urea Nitrogen 10 7-18 mg/dl Creatinine 0.67 0.60-1.20 mg/dl Est Creatinine Clear Calc Drug Dose 37.8 ml/min Estimated GFR () 92.9 Estimated GFR (Non- 80.2 BUN/Creatinine Ratio 15.6 10-20 Random Glucose 109 70-99 mg/dl Calcium Level 9.1 8.5-10.1 mg/dl Total Bilirubin 0.7 0.2-1 mg/dl Aspartate Amino Transf (AST/SGOT) 22 15-37 U/L Alanine Aminotransferase (ALT/SGPT) 20 12-78 U/L Alkaline Phosphatase 107 45-117 U/L Troponin I < 0.015 0-0.045 ng/ml Pro-B-Type Natriuretic Peptide 239 0-1800 pg/ml Total Protein 5.7 6.4-8.2 gm/dl Albumin 2.5 3.4-5.0 gm/dl Globulin 3.2 2.5-4.0 gm/dl Albumin/Globulin Ratio 0.8 0.9-2 Diagnostic Radiology CHEST ONE VIEW PORTABLE CLINICAL HISTORY: 87 years-old Female presenting with SOB. TECHNIQUE: Portable upright AP view of the chest was obtained. COMPARISON: 05/24/2017. FINDINGS: Atherosclerosis of the aortic arch. Cardiac silhouette normal in size. Lungs hyperinflated. Heterogeneity of lung parenchyma. Reticulonodular opacities in the right apex slightly decreased from prior. No large pleural effusion or pneumothorax. Osseous structures normal. IMPRESSION: 1. Slight decrease in right apical reticulonodular opacities, which likely represent evolving postinfectious or postinflammatory infiltrates. These should be followed to resolution given the patient's underlying emphysema. Electronically signed by: Will Slaughter M.D. 06/22/2017 2:11 PM Dictated Date/Time: 06/22/2017 2:10 PM The status of this report is Signed. Draft = Not yet reviewed or approved by Radiologist. Signed = Reviewed and approved by Radiologist. EKG MARLYS SRIVASTAVA ID:[id number] 22-JUN-2017 13:59:46 [facility] Poor data quality, interpretation may be adversely affected Sinus rhythm with Premature atrial complexes Biatrial enlargement Nonspecific ST abnormality Prolonged QT Abnormal ECG When compared with ECG of 24-MAY-2017 09:09, Premature atrial complexes are now Present T wave inversion now evident in Anterior leads QT has lengthened ... 25mm/s 10mm/mV 150Hz 8.0 SP2 12SL 241 HD MARC: 12 Referred by: ED Confirmed By: Marko Boggs. rate 80 BPM MT interval 132 ms QRS duration 84 ms QT/QTc 440/507 ms P-R-T axes 86 62 1932 (87 yr) Female 93in Room:[facility] Loc:15 Master Lay Out Specialist:Alia Yo ind: Impression Assessment and Plan Patient is a pleasant 87 y/o female, with PMHx of RA, hypothyroidism, peripheral edema, anxiety/depression, and COPD, who presented to the ED from [facility] due to worsening CXR. Acute on chronic respiratory failure, PNA, COPD: - Admit to tele for cardiac monitoring - Trend cardiac enzymes - O2 protocol- patient on chronic 2L - Stop Moxifloxacin- start IV Zosyn - IV Solu Medrol 30 mg TID - DuoNebs QID and PRN for sob/wheezing - IV NS + KCL supplement at 50 ml/hr - Check MRSA swab, UA pending - Check mag level - Continue home inhalers Goals of care: Palliative care consulted Peripheral edema: Hold Lasix due to hypotension Severe protein calorie malnutrition: Nutrition consulted Hypothyroidism: - Check TSH - Continue Synthroid RA: Continue Methotrexate on Sundays Anxiety/depression: Continue Celexa DVT prophylaxis: Heparin SQ BID Code status: LEVEL V, DNR Dispo: From [facility]- PT/OT and CM consulted Attending Documentation: Patient seen and examined, chart reviewed, case discussed with DAMION Mendez and I agree with her assessment and plan as above. Briefly patient is an 87yo female [place] resident with history of RA, hypothyroidism and COPD presenting with concern for worsening PNA and hypoxia. She was admitted in April for PNA and discharged to [facility]. Patient was reported to be hypoxic with blue lips today which prompted transfer to the ER. Patient feels well at present with no complaints. On exam she is afebrile, tachycardic at 116, regular, BP 96/55 in RUE, RR=14. Thin, chronically ill appearing. HEENT exam is unremarkable. Heart with +S1/S2 , tachycardic, no m/r/g. Lungs with poor air movement, no wheezing. Abdomen benign. Laboratory significant for low WBC 4.25. CXR reports a decrease in size of right apical opacity Plan Will admit for possible PNA and COPD. 1. PNA Zosyn, continue to monitor 2. COPD nebs, steroids, inhalers 3. Hypothyroidism continue synthroid 4. RA Continue Methotrexate on Wednesday 5. Palliative care consult at request of patient and family Remainder of plan as above Resuscitation Status VTE Prophylaxis Will order VTE Prophylaxis: Yes
[2017-06-22 17:50] VITALS: BP 110/64; PULSE 107; TEMP 36.3; O2SAT 95; Ht 157.5 cm; Wt 39.9 kg
[2017-06-22] MEDS ORDERED: PIPERACILL/TAZOBAC IV 3.375 GM in NSS 100 ML IV ONE (18:00)
[2017-06-22] MEDS ORDERED: PNEUMOCOCCAL POLYSACCHARIDES 25 MCG/0.5 ML VIAL/SYR IM. ONE (19:00)
[2017-06-22] MEDS ORDERED: PNEUMOCOCCAL ADMINISTRATION CHARGE ONE (19:00)
[2017-06-22] MEDS: LEVALBUTEROL 1.25MG/3ML NEB INH SCH (19:05)
[2017-06-22 19:09] VITALS: PULSE 108; O2SAT 98
[2017-06-22] MEDS: ARFORMOTEROL TART 15MCG/2ML VIAL INH SCH (19:09)
[2017-06-22] MEDS: NSS + 20MEQ KCL 1000ML 1,000 ML IV SCH (19:37)
[2017-06-22 19:49] VITALS: BP 93/58; PULSE 96; TEMP 36.4; O2SAT 100
--- NOTE | 2017-06-22 20:02 | EMERGENCY ROOM VISIT NOTE ---
History Report prepared by Yumiko: Justin Santoro Under the Supervision of: Dr. Hal Downs M.D. First contact with patient: 14:03 Chief Complaint: RESPIRATORY PROBLEMS Stated Complaint: weaknes Nursing Triage Summary: pt to the ED via EMS from home with c/o SOB and per EMS pt was blue and 80% 2lnc when they arrived. pt wears 2lnc baseline and was wearing it when they arrived. 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 Per the nurse, the patient had an oxygen level down into the 80s this afternoon and [facility] nursing staff notes that her lips were turning blue. This was while she was on her customary 2 L of oxygen. The patient was in the Emergency Department on May 24 for difficulty breathing and was discharged on Zithromax and Prednisone secondary to a right upper lobe consolidation on chest x-ray. The patient's daughter notes that the CORROSION CONTROL ENGINEER at [facility] performed a repeat chest x-ray 3 days ago, which showed the pneumonia was worsening. The patient notes that she has felt "somewhat short of breath" recently. She is normally on 2 liters of oxygen via nasal cannula. She denies any chest pain, vomiting, or fevers, but does note that she has had some diarrhea from her antibiotic use. The nurse notes that she had a normal bowel movement upon arrival to the ED today. The patient and daughter note that her legs are swollen and discolored at baseline. On June 19, three days ago, the patient was started on Avelox by the staff at [facility]. Source of History: patient Onset: Earlier today Position: chest Quality: other (Shortness of breath) Timing: other (persistent) Associated Symptoms: + diarrhea, No fevers, No chest pain Review of Systems See HPI for pertinent positives & negatives. A total of 10 systems reviewed and were otherwise negative. Past Medical & Surgical Medical Problems: (1) Acute and chronic respiratory failure with hypoxia (2) COPD (chronic obstructive pulmonary disease) (3) Hypothyroid (4) Osteoporosis (5) Rheumatoid arthritis Family History Omitted secondary to patient's advanced age. Social History Smoking Status: Former Smoker Housing Status: detention ([facility]) Occupation Status: retired Current/Historical Medications Scheduled Arformoterol Tartrate (Brovana), 15 MCG INH BID Cholecalciferol (Vitamin D3), 2,000 UNITS PO QAM Citalopram Hydrobromide (Celexa), 10 MG PO HS Emollient (Cerave), 1 APPLN TOP BID Home O2 Therapy (Oxygen), 2 LITERS NA CONTINOUS Ipratropium [place] (Atrovent 0.02% Soln), 1 VIAL INH TID Levalbuterol (Levalbuterol HCl), 1 VIAL INH TID Levothyroxine Sodium (Levothyroxine Sodium), 25 MCG PO QAM Methotrexate (Methotrexate), 5 MG PO WK Moxifloxacin Hcl (Avelox), 400 MG PO DAILY Scheduled PRN Acetaminophen (Tylenol), 500 MG PO Q6H PRN for MILD PAIN/FEVER Acetaminophen (Tylenol), 1,000 MG PO Q6H PRN for MODERATE PAIN Furosemide (Lasix), 20 MG PO DAILY PRN for ANKLE EDEMA Morphine Sulfate (Morphine Sulfate), 1 ML PO Q1H PRN for PAIN&DYSPNEA Ondansetron Hcl (Zofran), 4 MG PO Q4H PRN for Nausea Potassium Chloride (Potassium Chloride Er), 10 MEQ PO DAILY PRN for WHEN GIVEN LASIX Allergies Coded Allergies: No Known Allergies (Unverified , 06/22/17) Physical Exam Vital Signs Date Time Temp Pulse Resp B/P (MAP) Pulse Ox O2 Delivery O2 Flow Rate FiO2 06/22/17 15:27 77 20 89/57 100 Nebulizer 6.0 06/22/17 15:22 84 18 88/48 100 Nebulizer 6.0 06/22/17 14:46 78 18 99 Nasal Cannula 4.0 06/22/17 14:43 75 25 98 06/22/17 14:13 77 21 100 06/22/17 13:43 77 17 100 06/22/17 13:13 79 20 100 06/22/17 13:10 80 06/22/17 13:07 35.7 06/22/17 13:01 Nasal Cannula 4.0 06/22/17 12:57 84 20 120/78 100 Nasal Cannula 4.0 06/22/17 12:52 120/78 Physical Exam Constitutional: Vital signs reviewed. Eyes: Pupils are equal round reactive to light. Conjunctiva are noninjected. ENT: Pharynx is clear without erythema or exudate. Mucous membranes are moist. Neck supple without meningeal signs. Respiratory: There is diffuse wheezing bilaterally. There is poor air entry bilaterally. Breath sounds are equal bilaterally. Cardiovascular: Regular rate and rhythm. No rubs or gallops. GI: Soft, nondistended and nontender. Bowel sounds are present. Musculoskeletal: Mild pedal edema with patchy erythema throughout . No lower extremity tenderness. Integumentary: No cyanosis. Neurological: The patient is awake and alert. No focal deficits. Psychiatric: Normal affect. Medical Decision & Procedures ER Provider Diagnostic Interpretation: Radiology results as stated below per my review and the radiologist's interpretation: CHEST ONE VIEW PORTABLE CLINICAL HISTORY: 87 years-old Female presenting with SOB. TECHNIQUE: Portable upright AP view of the chest was obtained. COMPARISON: 05/24/2017. FINDINGS: Atherosclerosis of the aortic arch. Cardiac silhouette normal in size. Lungs hyperinflated. Heterogeneity of lung parenchyma. Reticulonodular opacities in the right apex slightly decreased from prior. No large pleural effusion or pneumothorax. Osseous structures normal. IMPRESSION: 1. Slight decrease in right apical reticulonodular opacities, which likely represent evolving postinfectious or postinflammatory infiltrates. These should be followed to resolution given the patient's underlying emphysema. Electronically signed by: Will Slaughter M.D. 06/22/2017 2:11 PM Dictated Date/Time: 06/22/2017 2:10 PM Laboratory Results 06/22/17 14:45 Red Blood Count 4.13, Mean Corpuscular Volume 90.3, Mean Corpuscular Hemoglobin 29.1, Mean Corpuscular Hemoglobin Concent 32.2, Mean Platelet Volume 9.9, Neutrophils (%) (Auto) 84.5, Lymphocytes (%) (Auto) 6.8, Monocytes (%) (Auto) 5.2, Eosinophils (%) (Auto) 2.8, Basophils (%) (Auto) 0.2, Neutrophils # (Auto) 3.59, Lymphocytes # (Auto) 0.29, Monocytes # (Auto) 0.22, Eosinophils # (Auto) 0.12, Basophils # (Auto) 0.01 06/22/17 14:45 Test 06/22/17 14:30 06/22/17 14:45 Prothrombin Time 11.5 SECONDS (9.0-12.0) Prothromb Time International Ratio 1.1 (0.9-1.1) Activated Partial Thromboplast Time 27.2 SECONDS (21.0-31.0) Partial Thromboplastin Ratio 1.0 White Blood Count 4.25 K/uL (4.8-10.8) Red Blood Count 4.13 M/uL (4.2-5.4) Hemoglobin 12.0 g/dL (12.0-16.0) Hematocrit 37.3 % (37-47) Mean Corpuscular Volume 90.3 fL (80-100) Mean Corpuscular Hemoglobin 29.1 pg (25-34) Mean Corpuscular Hemoglobin Concent 32.2 g/dl (32-36) Platelet Count 205 K/uL (130-400) Mean Platelet Volume 9.9 fL (7.4-10.4) Neutrophils (%) (Auto) 84.5 % Lymphocytes (%) (Auto) 6.8 % Monocytes (%) (Auto) 5.2 % Eosinophils (%) (Auto) 2.8 % Basophils (%) (Auto) 0.2 % Neutrophils # (Auto) 3.59 K/uL (1.4-6.5) Lymphocytes # (Auto) 0.29 K/uL (1.2-3.4) Monocytes # (Auto) 0.22 K/uL (0.11-0.59) Eosinophils # (Auto) 0.12 K/uL (0-0.5) Basophils # (Auto) 0.01 K/uL (0-0.2) RDW Standard Deviation 48.2 fL (36.4-46.3) RDW Coefficient of Variation 14.8 % (11.5-14.5) Immature Granulocyte % (Auto) 0.5 % Immature Granulocyte # (Auto) 0.02 K/uL (0.00-0.02) Anion Gap 1.0 mmol/L (3-11) Est Creatinine Clear Calc Drug Dose 37.8 ml/min Estimated GFR () 92.9 Estimated GFR (Non- 80.2 BUN/Creatinine Ratio 15.6 (10-20) Calcium Level 9.1 mg/dl (8.5-10.1) Magnesium Level 2.1 mg/dl (1.8-2.4) Total Bilirubin 0.7 mg/dl (0.2-1) Aspartate Amino Transf (AST/SGOT) 22 U/L (15-37) Alanine Aminotransferase (ALT/SGPT) 20 U/L (12-78) Alkaline Phosphatase 107 U/L (45-117) Troponin I < 0.015 ng/ml (0-0.045) Pro-B-Type Natriuretic Peptide 239 pg/ml (0-1800) Total Protein 5.7 gm/dl (6.4-8.2) Albumin 2.5 gm/dl (3.4-5.0) Globulin 3.2 gm/dl (2.5-4.0) Albumin/Globulin Ratio 0.8 (0.9-2) Laboratory results as reviewed by me. Medications Administered Medications (Trade) Dose Ordered Sig/Alphonso Route Start Time Stop Time Status Last Admin Dose Admin Methylprednisolone Sodium Succinate (Solu-Medrol IV) 125 mg NOW STAT IV 06/22/17 14:18 06/22/17 14:19 DC 06/22/17 14:51 125 MG Albuterol/ Ipratropium (Duoneb) 12 ml ONE ONCE INH 06/22/17 14:30 06/22/17 14:32 DC 06/22/17 14:43 12 ML ECG Per My Interpretation Indication: SOB/dyspnea Rate (beats per minute): 80 Rhythm: sinus rhythm Findings: PAC, other (Limited interpretation due to artifact, No RICH) ED Course 1401: The patient was evaluated in room C11A. A complete history and physical exam was performed. 1418: Ordered Solu-Medrol 125 mg IV. 1430: Ordered Albuterol 12 mL INH. 1532: I checked on the patient at this time. She is still wheezing and her air entry is lightly improved. Her pressure did drop to 96/61, but she denies feeling weak or light headed. 1537: I discussed the case with Dr. Sumi Booker - [facility] [place]. She will evaluate the patient for further treatment. Medical Decision This is an 87-year-old female presents with difficulty breathing. Differential diagnosis includes COPD exacerbation, respiratory failure, pneumonia, heart failure, pleural effusion. I did perform a limited focused review of portions of the patient's old chart on the electronic medical record. The patient was in the ED on May 24 for difficulty breathing. She was discharged home with Zithromax and Prednisone secondary to right upper lobe consolidation on chest x- ray. She was admitted in April for a right upper lobe pneumonia as well, and was treated with Levaquin. I did evaluate the patient as noted above. The patient presents with significant wheezing and poor air entry bilaterally. She was hypoxemic with cyanosis and [place]. She is currently satting 100% on 4 L of oxygen. She normally uses 2 L. IV access was established. The patient was placed on a continuous cardiac specialist. I did treat her with Solu-Medrol IV. She was also given a continuous hour-long DuoNeb. I did order and personally review the patient's 12-lead EKG and chest x-ray as described above. Her chest x-ray demonstrates persistent right upper lobe infiltrate with improvement since her last x-ray here. I did order and review the patient's blood work as noted in the electronic medical record. I did reassess the patient. She has persistent wheezing but her air entry is somewhat improved on exam. I did recommend hospitalization for further evaluation. She did drop her blood pressure somewhat while sleeping but it did come up spontaneously when she was awake. We will continue to monitor her blood pressure. I did discuss the case with the hospitalist and manager of case management. Medication Reconcilliation Current Medication List: was personally reviewed by me Blood Pressure Screening Patient's blood pressure: Normal blood pressure Consults Time Called: 1535 Consulting Physician: Dr. Sumi RICKETTS Hospitalist Returned Call: [phone] I discussed the case with Dr. Sumi RICKETTS Hospitalist. She will evaluate the patient for further treatment. Impression Primary Impression: COPD exacerbation Additional Impressions: Hypoxia Right upper lobe pneumonia Scribe Attestation The scribe's documentation has been prepared under my direct and personally reviewed by me in its entirety. I confirm that the note above accurately reflects all work, treatment, procedures, and medical decision making performed by me. Departure Information Dispostion Being Evaluated By Hospitalist Referrals Sonya Barakat, C.R.N.P. (PCP) Patient Instructions My [facility] Problem Qualifiers Additional Impressions: Right upper lobe pneumonia Pneumonia type: due to unspecified organism Qualified Codes: J18.1 - Lobar pneumonia, unspecified organism
[2017-06-22] MEDS: METHYLPREDNISOLONE IV 30 MG in SYRINGE 0 ML IV SCH (21:07)
[2017-06-22] MEDS: CITALOPRAM 20 MG TAB PO SCH (21:07)
[2017-06-22] MEDS: HEPARIN SOD 5000 UNIT/0.5 ML CARP SQ SCH (21:10)
[2017-06-22 23:10] LABS: CKMB 3.3 ng/ml (0.5-3.6)
[2017-06-22 23:39] VITALS: BP 89/48; PULSE 82; TEMP 36.4; O2SAT 98
[2017-06-23] VITALS (10 sets, daily range): BP systolic 92–114; BP diastolic 44–58; PULSE 64–96; TEMP 36.5–36.9; O2SAT 91–99
[2017-06-23] MEDS ORDERED: PIPERACILL/TAZOBAC IV 3.375 GM in DEXTROSE 5% 100ML 100 ML IV SCH ×2
[2017-06-23] MEDS: PIPERACILL/TAZOBAC IV 3.375 GM in SODIUM CHLORIDE 0.9% 100ML 100 ML IV SCH ×2 (00:42→08:06)
[2017-06-23] MEDS: LEVALBUTEROL 1.25MG/3ML NEB INH SCH ×5 (02:32→18:59)
[2017-06-23] MEDS: LEVOTHYROXINE 25 MCG TAB PO SCH (06:17)
[2017-06-23] MEDS: ARFORMOTEROL TART 15MCG/2ML VIAL INH SCH ×2 (07:14→19:02)
[2017-06-23 07:49] LABS: HEMATOCRIT 33.9 % (37-47); HEMOGLOBIN 10.7 g/dL (12.0-16.0); MEAN CELL VOLUME 91.6 fL (80-100); MEAN CORPUSCULAR HEMOGLOBIN 28.9 pg (25-34); MEAN CORPUSCULAR HGB CONC 31.6 g/dl (32-36); MEAN PLATELET VOLUME 10.3 fL (7.4-10.4); PLATELET COUNT 211 K/uL (130-400); RED CELL DISTRIBUTION WIDTH CV 14.8 % (11.5-14.5); RED CELL DISTRIBUTION WIDTH SD 48.9 fL (36.4-46.3); WHITE BLOOD COUNT 2.88 K/uL (4.8-10.8)
[2017-06-23] MEDS: METHYLPREDNISOLONE IV 30 MG in SYRINGE 0 ML IV SCH ×2 (08:01→21:29)
[2017-06-23] MEDS: HEPARIN SOD 5000 UNIT/0.5 ML CARP SQ SCH ×2 (08:06→21:30)
[2017-06-23 08:16] LABS: BLOOD UREA NITROGEN 11 mg/dl (7-18); CALCIUM 8.9 mg/dl (8.5-10.1); CARBON DIOXIDE 35 mmol/L (21-32); CREATININE 0.83 mg/dl (0.60-1.20); GLUCOSE 116 mg/dl (70-99); POTASSIUM 3.6 mmol/L (3.5-5.1); SODIUM 141 mmol/L (136-145)
[2017-06-23 08:27] LABS: CKMB 2.3 ng/ml (0.5-3.6)
[2017-06-23] MEDS ORDERED: MOXIFLOXACIN HCL 400 MG PO SCH (09:00)
--- NOTE | 2017-06-23 12:27 | Hospitalist Progress Note ---
Hospitalist Progress Note Date of Service Jun 23, 2017. (Perri Guevara .SANDRA) Subjective Pt evaluation today including: conversation w/ patient, conversation w/ family , physical exam, chart review, lab review, review of studies, review of inpatient medication list Voiding: no voiding problems Ms. Bowles is very hard of hearing, her daughter is bedside and also provides some history. Ms. Bowles does report having some sob at baseline and feels she is at about her normal sob. Her daughter reports that her mother never really "bounced back" after her pneumonia in April. Previously she had been frequently ambulating around her room but now can only move from the bed to the bedside commode. She does participate in occupational therapy at [facility]. ROS Constitutional: no chills, aches, sweats or fever Respiratory: no cough, sputum, or wheezing Cardiac: no chest pain, palpitations, edema, orthopnea or lightheadedness GI: no abdominal pain, nausea, vomiting, diarrhea or constipation : no dysuria or hesitancy Extremities: no joint pain Skin: no rash All other systems reviewed and negative (Perri Guevara ., SANDRA) Medications Medications Administered Medications (Trade) Dose Ordered Sig/Alphonso Route Start Time Stop Time Status Last Admin Dose Admin Methylprednisolone Sodium Succinate (Solu-Medrol IV) 125 mg NOW STAT IV 06/22/17 14:18 06/22/17 14:19 DC 06/22/17 14:51 125 MG Albuterol/ Ipratropium (Duoneb) 12 ml ONE ONCE INH 06/22/17 14:30 06/22/17 14:32 DC 06/22/17 14:43 12 ML Heparin Sodium (Porcine) (Heparin Sq 5000 Unit/0.5ml) 5,000 unit Q12 SQ 06/22/17 21:00 07/22/17 20:59 06/23/17 08:06 5,000 UNIT Arformoterol Tartrate (Brovana 15MCG/ 2ML Neb Soln) 15 mcg BIDR INH 06/22/17 20:00 07/22/17 19:59 06/23/17 07:14 15 MCG Citalopram Hydrobromide (celeXA TAB) 10 mg HS PO 06/22/17 21:00 07/22/17 20:59 4/10/18 21:07 10 MG Levothyroxine Sodium (Synthroid Tab) 25 mcg DAILYBB PO 06/23/17 06:00 07/23/17 05:59 06/23/17 06:17 25 MCG Levalbuterol (Xopenex 1.25MG/ 3ML Neb) 1.25 mg Q6R INH 06/22/17 21:00 07/22/17 20:59 06/23/17 02:32 1.25 MG Methylprednisolone Sodium Succinate 30 mg/Syringe 0.48 ml @ 1.5 mls/min TID IV 06/22/17 21:00 07/22/17 20:59 06/23/17 08:01 1.5 MLS/MIN Potassium Chloride/Sodium Chloride 1,000 ml @ 50 mls/hr Q20H IV 06/22/17 18:00 07/22/17 17:59 06/22/17 19:37 50 MLS/HR Piperacillin Sod/ Tazobactam Sod 3.375 gm/Sodium Chloride 115 ml @ 230 mls/hr NOW ONCE IV 06/22/17 18:00 06/22/17 18:29 DC 06/22/17 19:38 230 MLS/HR Piperacillin Sod/ Tazobactam Sod 3.375 gm/Sodium Chloride 115 ml @ 28.75 mls/ hr Q8H IV 06/23/17 00:00 06/30/17 00:00 06/23/17 08:06 28.75 MLS/HR (Perri Guevara, SANDRA) Objective Vital Signs Date Time Temp Pulse Resp B/P (MAP) Pulse Ox O2 Delivery O2 Flow Rate FiO2 06/23/17 08:03 36.8 92 20 97/48 (64) 95 Nasal Cannula 2.0 06/23/17 08:00 Nasal Cannula 2.0 06/23/17 07:15 64 16 94 Nasal Cannula 2.0 06/23/17 04:00 Nasal Cannula 2.0 06/23/17 03:12 36.5 86 16 92/51 (65) 99 Room Air 06/23/17 02:32 84 16 94 Nasal Cannula 2.0 06/23/17 00:01 Nasal Cannula 2.0 06/22/17 23:39 36.4 82 20 89/48 (62) 98 06/22/17 20:00 Nasal Cannula 2.0 06/22/17 19:49 36.4 96 21 93/58 (70) 100 Nasal Cannula 2.0 06/22/17 19:09 108 18 98 Nasal Cannula 2.0 06/22/17 17:50 36.3 107 18 110/64 95 Nasal Cannula 3.0 06/22/17 17:28 74 18 106/71 95 Nasal Cannula 3.0 06/22/17 17:01 111 06/22/17 16:44 36.5 117 18 96/53 97 Nasal Cannula 2.0 06/22/17 15:27 77 20 89/57 100 Nebulizer 6.0 06/22/17 15:22 84 18 88/48 100 Nebulizer 6.0 06/22/17 14:46 78 18 99 Nasal Cannula 4.0 06/22/17 14:43 75 25 98 06/22/17 14:13 77 21 100 06/22/17 13:43 77 17 100 06/22/17 13:13 79 20 100 06/22/17 13:10 80 06/22/17 13:07 35.7 06/22/17 13:01 Nasal Cannula 4.0 06/22/17 12:57 84 20 120/78 100 Nasal Cannula 4.0 06/22/17 12:52 120/78 (Perri Guevara CRNP) Physical Exam Notes: General: no distress Eyes: normal inspection, PERLL Respiratory: chest non tender, clear to auscultation, normal breath sounds, no respiratory distress, no accessory muscle use Cardiac: regular rate and rhythm, no rub or gallop, no murmur, +1 pitting edema to lower extremities GI/: active bowel sounds, no abd pain or tenderness, soft, non distended Extremities: normal range of motion, normal strength, non tender Neuro/Psych: alert and oriented x 3, normal mood and affect Skin: normal color, dry (Perri Guevara CRNP) Laboratory Results Last 24 Hours Test 06/22/17 14:30 06/22/17 14:45 06/22/17 22:25 06/23/17 04:44 Prothrombin Time 11.5 SECONDS Prothromb Time International Ratio 1.1 Activated Partial Thromboplast Time 27.2 SECONDS Partial Thromboplastin Ratio 1.0 White Blood Count 4.25 K/uL Red Blood Count 4.13 M/uL Hemoglobin 12.0 g/dL Hematocrit 37.3 % Mean Corpuscular Volume 90.3 fL Mean Corpuscular Hemoglobin 29.1 pg Mean Corpuscular Hemoglobin Concent 32.2 g/dl Platelet Count 205 K/uL Mean Platelet Volume 9.9 fL Neutrophils (%) (Auto) 84.5 % Lymphocytes (%) (Auto) 6.8 % Monocytes (%) (Auto) 5.2 % Eosinophils (%) (Auto) 2.8 % Basophils (%) (Auto) 0.2 % Neutrophils # (Auto) 3.59 K/uL Lymphocytes # (Auto) 0.29 K/uL Monocytes # (Auto) 0.22 K/uL Eosinophils # (Auto) 0.12 K/uL Basophils # (Auto) 0.01 K/uL RDW Standard Deviation 48.2 fL RDW Coefficient of Variation 14.8 % Immature Granulocyte % (Auto) 0.5 % Immature Granulocyte # (Auto) 0.02 K/uL Sodium Level 138 mmol/L Potassium Level 3.5 mmol/L Chloride Level 99 mmol/L Carbon Dioxide Level 38 mmol/L Anion Gap 1.0 mmol/L Blood Urea Nitrogen 10 mg/dl Creatinine 0.67 mg/dl Est Creatinine Clear Calc Drug Dose 37.8 ml/min Estimated GFR () 92.9 Estimated GFR (Non- 80.2 BUN/Creatinine Ratio 15.6 Random Glucose 109 mg/dl Calcium Level 9.1 mg/dl Magnesium Level 2.1 mg/dl Total Bilirubin 0.7 mg/dl Aspartate Amino Transf (AST/SGOT) 22 U/L Alanine Aminotransferase (ALT/SGPT) 20 U/L Alkaline Phosphatase 107 U/L Troponin I < 0.015 ng/ml < 0.015 ng/ml Pro-B-Type Natriuretic Peptide 239 pg/ml Total Protein 5.7 gm/dl Albumin 2.5 gm/dl Globulin 3.2 gm/dl Albumin/Globulin Ratio 0.8 Creatine Kinase MB 3.3 ng/ml Creatine Kinase MB Ratio Test 06/23/17 06:46 06/23/17 08:35 White Blood Count 2.88 K/uL Red Blood Count 3.70 M/uL Hemoglobin 10.7 g/dL Hematocrit 33.9 % Mean Corpuscular Volume 91.6 fL Mean Corpuscular Hemoglobin 28.9 pg Mean Corpuscular Hemoglobin Concent 31.6 g/dl RDW Standard Deviation 48.9 fL RDW Coefficient of Variation 14.8 % Platelet Count 211 K/uL Mean Platelet Volume 10.3 fL Sodium Level 141 mmol/L Potassium Level 3.6 mmol/L Chloride Level 101 mmol/L Carbon Dioxide Level 35 mmol/L Anion Gap 5.0 mmol/L Blood Urea Nitrogen 11 mg/dl Creatinine 0.83 mg/dl Est Creatinine Clear Calc Drug Dose 31.4 ml/min Estimated GFR () 74.5 Estimated GFR (Non- 64.3 BUN/Creatinine Ratio 13.0 Random Glucose 116 mg/dl Calcium Level 8.9 mg/dl Creatine Kinase MB 2.3 ng/ml Troponin I < 0.015 ng/ml Thyroid Stimulating Hormone (TSH) 3.110 uIu/ml Urine Color YELLOW Urine Appearance CLOUDY Urine pH 5.0 Urine Specific [place] 1.021 Urine Protein TRACE Urine Glucose (UA) NEG Urine Ketones NEG Urine Occult Blood 1+ Urine Nitrite NEG Urine Bilirubin NEG Urine Urobilinogen NEG Urine Leukocyte Esterase NEG Urine WBC (Auto) 1-5 /hpf Urine RBC (Auto) 0-4 /hpf Urine Hyaline Casts (Auto) 1-5 /lpf Urine Epithelial Cells (Auto) 20-30 /lpf Urine Bacteria (Auto) NEG Urine Crystals CALCIUM OXALATE (Perri Guevara, SANDRA) Assessment and Plan Patient is a pleasant 87 y/o female, with PMHx of RA, hypothyroidism, peripheral edema, anxiety/depression, and COPD, who presented to the ED from [facility] due to worsening CXR. Acute on chronic respiratory failure, PNA, COPD: - cardiac enzymes wnl - O2 protocol- patient on chronic 2L - continue Zosyn - taper IV Solu Medrol - 30 mg bid - DuoNebs QID and PRN for sob/wheezing - Continue IV NS + KCL supplement at 50 ml/hr - Check MRSA swab, UA with +1 RBCs and oxylate crystals - Continue home inhalers Goals of care: Palliative care consulted Peripheral edema: Hold Lasix due to hypotension Severe protein calorie malnutrition - serum albumin 2.5 - Nutrition consulted Hypothyroidism: - TSH 3.1 - Continue Synthroid RA: Continue Methotrexate on Sundays Anxiety/depression: Continue Celexa DVT prophylaxis: Heparin SQ BID Code status: LEVEL V, DNR Dispo: From [facility]- PT/OT and CM consulted (Perri Guevara ., SANDRA) Supervising Note Dr. Porter I performed a history and physical examination on the patient. I reviewed above note and agree with it. I discussed plan with APC and patient. During my face to face encounter with the patient, I answered all of the patient's questions. Updated patient and daughter. Patient appears to be coming o the hospital more recently. This may be attributed to her advanced COPD and her advanced age. Awaiting palliative care. Will consult pulmonary, patient dinorahoever does not want to see her previous pulmonary doctor. I explained to her however, that it will be helpful for at least his group who knows her to see her and help with goals of care discussion and to assess if her treatment is maximized. Patient agreed. (Davion Porter M.D.)
[2017-06-23] MEDS ORDERED: CEFEPIME CONSULT ACTIVE PRN (15:15)
[2017-06-23] MEDS ORDERED: CEFEPIME IV 2,000 MG in SYRINGE 7.5 ML IV SCH (16:00)
[2017-06-23] MEDS: CITALOPRAM 20 MG TAB PO SCH (21:29)
[2017-06-24] VITALS (11 sets, daily range): BP systolic 105–124; BP diastolic 55–74; PULSE 68–91; TEMP 36.4–36.8; O2SAT 94–100
[2017-06-24] MEDS: LEVALBUTEROL 1.25MG/3ML NEB INH SCH ×4 (01:38→19:57)
[2017-06-24] MEDS: NSS + 20MEQ KCL 1000ML 1,000 ML IV SCH (02:14)
[2017-06-24] MEDS: LEVOTHYROXINE 25 MCG TAB PO SCH (05:53)
[2017-06-24 06:18] LABS: HEMATOCRIT 31.4 % (37-47); HEMOGLOBIN 9.8 g/dL (12.0-16.0); MEAN CELL VOLUME 91.8 fL (80-100); MEAN CORPUSCULAR HEMOGLOBIN 28.7 pg (25-34); MEAN CORPUSCULAR HGB CONC 31.2 g/dl (32-36); MEAN PLATELET VOLUME 9.5 fL (7.4-10.4); PLATELET COUNT 179 K/uL (130-400); RED CELL DISTRIBUTION WIDTH SD 50.2 fL (36.4-46.3); WHITE BLOOD COUNT 6.33 K/uL (4.8-10.8)
[2017-06-24 06:45] LABS: CALCIUM 8.4 mg/dl (8.5-10.1); CREATININE 0.7 mg/dl (0.60-1.20); POTASSIUM 3.5 mmol/L (3.5-5.1)
[2017-06-24] MEDS: ARFORMOTEROL TART 15MCG/2ML VIAL INH SCH ×2 (07:01→19:56)
[2017-06-24] MEDS: BOOST VANILLA PUDDING CUP PO SCH (08:25)
[2017-06-24] MEDS: METHYLPREDNISOLONE IV 30 MG in SYRINGE 0 ML IV SCH ×2 (08:26→20:28)
[2017-06-24] MEDS: HEPARIN SOD 5000 UNIT/0.5 ML CARP SQ SCH ×2 (08:27→20:29)
[2017-06-24] MEDS ORDERED: CEFEPIME IV 2,000 MG in SYRINGE 7.5 ML IV ONE (11:15)
--- NOTE | 2017-06-24 11:20 | Hospitalist Progress Note ---
Hospitalist Progress Note Date of Service Jun 24, 2017. Subjective Pt evaluation today including: conversation w/ patient, physical exam, chart review, lab review, conversation w/ system sales consultant (palliative care), review of inpatient medication list Voiding: no voiding problems Ms. Bowles continues to feel somewhat sob though not more so than she has been. She continues to require 2L NC. She has no other complaints ROS Constitutional: no chills, aches, sweats or fever Respiratory: no cough, sputum, or wheezing Cardiac: no chest pain, palpitations, edema, orthopnea or lightheadedness GI: no abdominal pain, nausea, vomiting, diarrhea or constipation : no dysuria or hesitancy Extremities: no joint pain or weakness Skin: no rash All other systems reviewed and negative Medications Medications Administered Medications (Trade) Dose Ordered Sig/Alphonso Route Start Time Stop Time Status Last Admin Dose Admin Methylprednisolone Sodium Succinate (Solu-Medrol IV) 125 mg NOW STAT IV 06/22/17 14:18 06/22/17 14:19 DC 06/22/17 14:51 125 MG Albuterol/ Ipratropium (Duoneb) 12 ml ONE ONCE INH 06/22/17 14:30 06/22/17 14:32 DC 06/22/17 14:43 12 ML Heparin Sodium (Porcine) (Heparin Sq 5000 Unit/0.5ml) 5,000 unit Q12 SQ 06/22/17 21:00 07/22/17 20:59 06/24/17 08:27 5,000 UNIT Arformoterol Tartrate (Brovana 15MCG/ 2ML Neb Soln) 15 mcg BIDR INH 06/22/17 20:00 07/22/17 19:59 06/24/17 07:01 15 MCG Citalopram Hydrobromide (celeXA TAB) 10 mg HS PO 06/22/17 21:00 07/22/17 20:59 06/23/17 21:29 10 MG Levothyroxine Sodium (Synthroid Tab) 25 mcg DAILYBB PO 06/23/17 06:00 07/23/17 05:59 06/24/17 05:53 25 MCG Levalbuterol (Xopenex 1.25MG/ 3ML Neb) 1.25 mg Q6R INH 06/22/17 21:00 07/22/17 20:59 06/24/17 01:38 1.25 MG Methylprednisolone Sodium Succinate 30 mg/Syringe 0.48 ml @ 1.5 mls/min TID IV 06/22/17 21:00 06/23/17 12:23 DC 06/23/17 08:01 1.5 MLS/MIN Potassium Chloride/Sodium Chloride 1,000 ml @ 50 mls/hr Q20H IV 06/22/17 18:00 07/22/17 17:59 06/24/17 02:14 50 MLS/HR Piperacillin Sod/ Tazobactam Sod 3.375 gm/Sodium Chloride 115 ml @ 230 mls/hr NOW ONCE IV 06/22/17 18:00 06/22/17 18:29 DC 06/22/17 19:38 230 MLS/HR Piperacillin Sod/ Tazobactam Sod 3.375 gm/Sodium Chloride 115 ml @ 28.75 mls/ hr Q8H IV 06/23/17 00:00 06/23/17 15:09 DC 06/23/17 08:06 28.75 MLS/HR Methylprednisolone Sodium Succinate 30 mg/Syringe 0.48 ml @ 1.5 mls/min BID IV 06/23/17 21:00 07/22/17 20:59 06/24/17 08:26 1.5 MLS/MIN Cefepime HCl 2000 mg/Syringe 20 ml @ 5 mls/min DAILY@1600 IV 06/23/17 16:00 06/24/17 11:04 DC 06/23/17 15:59 5 MLS/MIN Enteral Nutritional Formula (Boost Pudding) 1 cup DAILY PO 06/24/17 09:00 07/24/17 08:59 06/24/17 08:25 1 CUP Objective Vital Signs Date Time Temp Pulse Resp B/P (MAP) Pulse Ox O2 Delivery O2 Flow Rate FiO2 06/24/17 08:30 Nasal Cannula 2.0 06/24/17 08:24 36.7 91 24 124/61 (82) 94 Nasal Cannula 2.0 06/24/17 07:01 80 18 98 Nasal Cannula 2.0 06/24/17 04:13 Nasal Cannula 2.0 06/24/17 04:13 36.7 85 19 123/60 (81) 95 Nasal Cannula 2.0 06/24/17 01:38 82 16 95 Nasal Cannula 2.0 06/24/17 00:09 36.7 89 20 108/55 (72) 98 Nasal Cannula 2.0 06/24/17 00:01 Nasal Cannula 2.0 06/23/17 20:00 Nasal Cannula 2.0 06/23/17 19:15 36.7 95 23 114/58 (76) 93 Nasal Cannula 2.0 06/23/17 19:02 92 18 91 Nasal Cannula 2.0 06/23/17 16:00 Nasal Cannula 2.0 06/23/17 15:09 36.9 94 20 95/57 (70) 96 Nasal Cannula 2.0 06/23/17 14:29 83 16 93 Nasal Cannula 2.0 06/23/17 14:18 93 06/23/17 12:17 36.8 96 20 103/44 (63) 91 Nasal Cannula 2.0 06/23/17 12:00 Nasal Cannula 2.0 Physical Exam Notes: General: no distress Eyes: normal inspection, PERLL Respiratory: chest non tender, faint expiratory wheezes bilateral bases, no respiratory distress, no accessory muscle use Cardiac: regular rate and rhythm, no rub or gallop, no murmur, no edema, no jvd GI/: active bowel sounds, no abd pain or tenderness, soft, non distended Extremities: normal range of motion, normal strength, non tender Neuro/Psych: alert and oriented x 3, normal mood and affect Skin: normal color, dry Laboratory Results Last 24 Hours Test 06/24/17 05:56 White Blood Count 6.33 K/uL Red Blood Count 3.42 M/uL Hemoglobin 9.8 g/dL Hematocrit 31.4 % Mean Corpuscular Volume 91.8 fL Mean Corpuscular Hemoglobin 28.7 pg Mean Corpuscular Hemoglobin Concent 31.2 g/dl RDW Standard Deviation 50.2 fL RDW Coefficient of Variation 15.0 % Platelet Count 179 K/uL Mean Platelet Volume 9.5 fL Sodium Level 145 mmol/L Potassium Level 3.5 mmol/L Chloride Level 109 mmol/L Carbon Dioxide Level 32 mmol/L Anion Gap 4.0 mmol/L Blood Urea Nitrogen 19 mg/dl Creatinine 0.70 mg/dl Est Creatinine Clear Calc Drug Dose 38.6 ml/min Estimated GFR () 91.6 Estimated GFR (Non- 79.0 BUN/Creatinine Ratio 27.5 Random Glucose 109 mg/dl Calcium Level 8.4 mg/dl Assessment and Plan Patient is a pleasant 87 y/o female, with PMHx of RA, hypothyroidism, peripheral edema, anxiety/depression, and COPD, who presented to the ED from [facility] due to worsening CXR. Acute on chronic respiratory failure, PNA, COPD: - cardiac enzymes wnl - O2 protocol- patient on chronic 2L - continue cefepime - taper IV Solu Medrol - continue 30 mg bid today as patient has some faint wheezing - DuoNebs QID and PRN for sob/wheezing - Continue IV NS + KCL supplement at 50 ml/hr - MRSA swab negative, UA with +1 RBCs and oxylate crystals - Continue home inhalers Goals of care: Palliative care consulted Peripheral edema: Hold Lasix due to hypotension Severe protein calorie malnutrition - serum albumin 2.5 - Nutrition consulted Hypothyroidism: - TSH 3.1 - Continue Synthroid RA: Continue Methotrexate on Sundays Anxiety/depression: Continue Celexa DVT prophylaxis: Heparin SQ BID Code status: LEVEL V, DNR Dispo: From [facility]- PT/OT and CM consulted transfer to [facility]
--- NOTE | 2017-06-24 12:02 | Palliative Care Consultation ---
Consultation Date of Consultation: Jun 24, 2017. Requesting Physician: SANDRA Flores Attending Physician: SANDRA Flores Reason for Consultation: Goals of care History of Present Illness Patient is an 87 y/o frail pleasant female, with a PMH that includes RA, COPD, and hypothyroidism. She presented to the ED from [facility] ([facility] ) due to SOB and a 'worsening CXR'. Patient was started on nebulizers, oxygen, and steroids. Palliative care was consulted to discuss goals of care with hopes of her returning to [facility]. I met with the patient alone and she stated that she likes living at [facility], but doesn't engage in any of the rec activities and has not made any friends. Per her daughter, she tends to be an introverted individual and is content and happy with not engaging. I discussed goals of care with her daughter Xiomy, in the family consultation area, along with patient at the bedside. A POLST form was filled out and I expressed how she may require correction as her condition worsens. I set the expectation that due to her cachetic presentation, her reserve is low, along with her decreased appetite may make recovering from infections harder for her. Additional questions answered to patient and daughter. Patient denies any fever , chills, chest pain, shortness of breath, palpitations. Social History Smoking Status: Former Smoker History of Alcohol Use: No Housing Status: halfway Occupation Status: retired Review of Systems Patient denies any fever, chills, sweats, lightheadedness, dizziness, vision changes, CP, palpitations, edema, wheezing, cough, abdominal pain, nausea, vomiting, diarrhea, urinary symptoms, melena, numbness/tingling, weakness, muscle/joint pain, anxiety/depression, active bleeding, or new skin discoloration/changes. Allergies Coded Allergies: No Known Allergies (Unverified , 06/22/17) Medications Current Inpatient Medications Medications (Trade) Dose Ordered Sig/Alphonso Route Start Time Stop Time Status Last Admin Dose Admin Heparin Sodium (Porcine) (Heparin Sq 5000 Unit/0.5ml) 5,000 unit Q12 SQ 06/22/17 21:00 07/22/17 20:59 06/24/17 08:27 5,000 UNIT Acetaminophen (Tylenol Tab) 650 mg Q4H PRN PO 06/22/17 16:15 5/10/18 16:14 Al Hydrox/Mg Hydrox/Simethicone (Maalox Max Susp) 15 ml Q4H PRN PO 06/22/17 16:15 07/22/17 16:14 Magnesium Hydroxide (Milk Of Magnesia Susp) 30 ml Q12H PRN PO 06/22/17 16:15 07/22/17 16:14 Ondansetron HCl (Zofran Inj) 4 mg Q6H PRN IV 06/22/17 16:15 07/22/17 16:14 Nitroglycerin (Nitrostat Tab) 0.4 mg UD PRN SL 06/22/17 16:15 07/22/17 16:14 Morphine Sulfate (MoRPHine SULFATE INJ) 2 mg Q30M PRN IV 06/22/17 16:15 07/06/17 16:14 Polyethylene (Miralax Powder Packet) 17 gm DAILY PRN PO 06/22/17 16:15 07/22/17 16:14 Arformoterol Tartrate (Brovana 15MCG/ 2ML Neb Soln) 15 mcg BIDR INH 06/22/17 20:00 07/22/17 19:59 06/24/17 07:01 15 MCG Citalopram Hydrobromide (celeXA TAB) 10 mg HS PO 06/22/17 21:00 07/22/17 20:59 06/23/17 21:29 10 MG Levothyroxine Sodium (Synthroid Tab) 25 mcg DAILYBB PO 06/23/17 06:00 07/23/17 05:59 06/24/17 05:53 25 MCG Methotrexate (Methotrexate Tab) 5 mg Lawrence@2100 PO 06/27/17 21:00 07/22/17 16:14 Potassium Chloride (Klor-Con M10) 10 meq DAILY PRN PO 06/22/17 16:15 07/22/17 16:14 Levalbuterol (Xopenex 1.25MG/ 3ML Neb) 1.25 mg Q6R INH 06/22/17 21:00 07/22/17 20:59 06/24/17 01:38 1.25 MG Levalbuterol (Xopenex 1.25MG/ 3ML Neb) 1.25 mg Q2H PRN INH 06/22/17 16:15 07/22/17 16:14 Potassium Chloride/Sodium Chloride 1,000 ml @ 50 mls/hr Q20H IV 06/22/17 18:00 07/22/17 17:59 06/24/17 02:14 50 MLS/HR Methylprednisolone Sodium Succinate 30 mg/Syringe 0.48 ml @ 1.5 mls/min BID IV 06/23/17 21:00 07/22/17 20:59 06/24/17 08:26 1.5 MLS/MIN Cefepime HCl (Consult) 1 ea UD PRN N/A 06/23/17 15:15 07/23/17 15:14 Enteral Nutritional Formula (Boost Pudding) 1 cup DAILY PO 06/24/17 09:00 07/24/17 08:59 06/24/17 08:25 1 CUP Cefepime HCl 2000 mg/Syringe 20 ml @ 5 mls/min Q12@0000,1200 IV 06/25/17 00:00 06/30/17 15:59 Physical Exam Date Time Temp Pulse Resp B/P (MAP) Pulse Ox O2 Delivery O2 Flow Rate FiO2 06/24/17 08:30 Nasal Cannula 2.0 06/24/17 08:24 36.7 91 24 124/61 (82) 94 Nasal Cannula 2.0 06/24/17 07:01 80 18 98 Nasal Cannula 2.0 06/24/17 04:13 Nasal Cannula 2.0 06/24/17 04:13 36.7 85 19 123/60 (81) 95 Nasal Cannula 2.0 06/24/17 01:38 82 16 95 Nasal Cannula 2.0 06/24/17 00:09 36.7 89 20 108/55 (72) 98 Nasal Cannula 2.0 06/24/17 00:01 Nasal Cannula 2.0 06/23/17 20:00 Nasal Cannula 2.0 06/23/17 19:15 36.7 95 23 114/58 (76) 93 Nasal Cannula 2.0 06/23/17 19:02 92 18 91 Nasal Cannula 2.0 06/23/17 16:00 Nasal Cannula 2.0 06/23/17 15:09 36.9 94 20 95/57 (70) 96 Nasal Cannula 2.0 06/23/17 14:29 83 16 93 Nasal Cannula 2.0 4/11/18 14:18 93 06/23/17 12:17 36.8 96 20 103/44 (63 91 Nasal Cannula 2.0 06/23/17 12:00 Nasal Cannula 2.0 General Appearance: no apparent distress, + cachetic Eyes: PERRL Neck: no adenopathy, no JVD Respiratory: + pertinent finding (expiratory wheezing, no accessory muscle involvement) Cardiovascular: no edema, no JVD, no murmur Abdomen: non tender, soft Musculoskeletal: pertinent finding (UE 3/5 LE 3/5 ) Skin: warm/dry, no rash Laboratory Results Last 24 Hours Test 06/24/17 05:56 06/24/17 11:29 White Blood Count 6.33 K/uL Red Blood Count 3.42 M/uL Hemoglobin 9.8 g/dL Hematocrit 31.4 % Mean Corpuscular Volume 91.8 fL Mean Corpuscular Hemoglobin 28.7 pg Mean Corpuscular Hemoglobin Concent 31.2 g/dl RDW Standard Deviation 50.2 fL RDW Coefficient of Variation 15.0 % Platelet Count 179 K/uL Mean Platelet Volume 9.5 fL Sodium Level 145 mmol/L Potassium Level 3.5 mmol/L Chloride Level 109 mmol/L Carbon Dioxide Level 32 mmol/L Anion Gap 4.0 mmol/L Blood Urea Nitrogen 19 mg/dl Creatinine 0.70 mg/dl Est Creatinine Clear Calc Drug Dose 38.6 ml/min Estimated GFR () 91.6 Estimated GFR (Non- 79.0 BUN/Creatinine Ratio 27.5 Random Glucose 109 mg/dl Calcium Level 8.4 mg/dl Assessment & Plan Palliative Performance Scale: 30 % Palliative Care encounter Goals of Care COPD Rheumatoid Arthritis Palliative Care recommendations: -Continue current medications for treatment -Once medically stable, return to [facility] - set expectation, patient may require transition to correction with PT/OT -Patient to remain DNR. POLST form filled out and discussed with patient's daughter, Xiomy. Thank you kindly for allowing us to be part of this patient's care. We will follow as needed. Counseling and Coordination Total time spent 70 minutes with > 50% of that time spent assessing patient and discussing goals of care with patient and daughter. POLST form signed and placed on chart
--- NOTE | 2017-06-24 12:24 | Pulmonary Consultation ---
History General Date of Service: Jun 24, 2017. Stated Complaint: Acute And Chronic Respiratory Failure With Hypoxia HPI The patient is a 87 year old female who presents to [facility] with complaints of Acute And Chronic Respiratory Failure With Hypoxia. The patient's primary care provider is Miriam Freeman C.R.N.P.. 87y/o female admitted 06/22/2017 for weakness and worsening CXR: Patient was at [facility] and has noted progressive SOB for multiple months. The patient has a PmHx significant for sever COPD, oxygen dependence, RA, Allergic Rhinitis, hypothyroidism and depression. She was admitted to the [facility] from 05/06-- for RUL pneumonia and acute on chronic hypoxic respiratory failure. She was d/c to [facility] () where she has been monitored with routine f/u CXR. On the day of admission she was noted to have blue lips/signs of hypoxemia and CXR showed and read as a worsening PNA while the CXR performed at [facility] shows an over decrease in thoracic opacifications as compared to 05/24/17. At the patient was started on Moxiflocaxin on 06/18/2017. In the ED the patients SaO2 was 98-100% on 4- 6Lnc and her VS were initially stable but her BP dropped to 88/48 at 15:22 on 12/30. An EKG did note new PAC/rate 80 with T wave inversion/anterior leads. She was admitted and treated with Oxygen, IV Zosyn, D/C Moxifloxacin, IC Solu- Medrol 30mg TID, Duo-Nebs She currently denies: fever, chills, pleurisy, classic cardiac CP, hemoptysis, aspiration, post-nasal gtt Work-Up EKG: NSR/83, PAC, non-specific ST changes in the inferior leads CXR: hyperinflation, flattened diaphragms, decreased RUL opacification WBC: 4K6K Troponin: <0.015 Total Pro: 5.7 Alb: 2.5 BNP: 239 MRSA Nasal Swab: Negative Previous Exams Cardiac Echo 03/20/2016 LV: EF=65-70%, Grade 1 diastolic dysfunction, RV: WNL LA: WNL RA: WNL TV: mild regurgitation PmHx: 1. Abnormal weight loss 2. Acute sinusitis 3. Allergic rhinitis 4. Anemia 5. Sever COPD (FEV1: 37% from spirometry 03/23/2016) 6. High risk medication use 7. Hypothyroidism 8. Impaired fasting glucose 9. Neoplasm of uncertain behavior of skin 10. Onychomycosis 11. Osteoporosis 12. Peripheral edema 13. Rheumatoid arthritis 14. Tachycardia 15. Visual impairment 16. Vitamin D deficiency 17. Depression PsHx: Family History Family history of Colon Cancer Social History Denied: History of Alcohol Use (History) Denied: History of Drug Use Former smoker Marital History - Occupation: Retired No pertinent social history Current Meds 1. Furosemide 20 MG Oral Tablet; take 1 tablet by mouth daily if needed for SWELLING 2. Ipratropium Cades 0.02 % Inhalation Solution; NEB THREE TIMES DAILY 3. Levalbuterol HCl - 0.63 MG/3ML NEBULIZER 3 TIMES A DAY 4. Levothyroxine Sodium 25 MCG Oral Tablet; 1 TAB BY MOUTH EVERY DAY 5. Methotrexate 2.5 MG Oral Tablet; 2 TABS (5MG) BY MOUTH WEEKLY 6. Potassium Chloride ER 10 MEQ Oral Capsule Extended Release; take 1 capsule by 7. Tylenol Extra Strength 500 MG Oral Tablet; TAKE 1-2 TABLET EVERY 4 TO 6 HOURS NEEDED, DO NOT EXCEED MORE THAN 6 TABLETS IN 24 HOURS 8. Oxygen 2L continuous support Allergies No Known Drug Allergies Pollen Allergies not assessed Past Medical History Past Medical History: please refer to HPI Past Surgical History: please refer to HPI Family History please refer to HPI Social History please refer to HPI Hx Tobacco Use In Past Year?: No Smoking Status: Former Smoker Housing status: usp Occupational Status: retired History of MDRO History of MDRO: No Allergies Coded Allergies: No Known Allergies (Unverified , 06/22/17) Current Medications Reported Home Medications Medications Dose Route/Sig Max Daily Dose Days Date Category Dose Instructions Zofran (Ondansetron HCl) 4 Mg Tab 4 Mg PO Q4H PRN 06/22/17 Reported Morphine Sulfate 10 Mg/5 Ml Marissa 1 Ml PO Q1H PRN 06/22/17 Reported Celexa (Citalopram Hydrobromide) 20 Mg Tab 10 Mg PO HS 06/22/17 Reported Cerave (Emollient) 1 Cre Cre 1 Appln TOP BID 06/22/17 Reported TO BILATERAL LEGS AND ARMS FOR EXCESSIVE DRY SKIN Brovana (Arformoterol Tartrate) 15 Mcg/2 Ml Neb 15 Mcg INH BID 06/22/17 Reported Avelox (Moxifloxacin Hcl) 400 Mg Tab 400 Mg PO DAILY 06/22/17 Reported FOR 10 DAYS FOR PNEUMONIA. STARTED 06/18/17 Vitamin D3 (Cholecalciferol) 2,000 Unit Cap 2,000 Units PO QAM 90 05/06/17 Reported Tylenol (Acetaminophen) 500 Mg Tab 1,000 Mg PO Q6H PRN 05/06/17 Reported DO NOT EXCEED 6 TABLETS IN 24 HOURS. Tylenol (Acetaminophen) 500 Mg Tab 500 Mg PO Q6H PRN 05/06/17 Reported DO NOT EXCEED 6 TABLET IN 24 HOURS. Potassium Chloride Er (Potassium Chloride) 10 Meq Tab 10 Meq PO DAILY PRN 90 05/06/17 Reported Methotrexate 2.5 Mg Tab 5 Mg PO WK 05/06/17 Reported QPM EVERY WEDNESDAY. Levothyroxine Sodium 25 Mcg Tab 25 Mcg PO QAM 05/06/17 Reported Levalbuterol HCl (Levalbuterol) 0.63 Mg/3 Ml Nebu 1 Vial INH TID 05/06/17 Reported Atrovent 0.02% Soln (Ipratropium Cades) 2.5 Ml Nebu 1 Vial INH TID 05/06/17 Reported Lasix (Furosemide) 20 Mg Tab 20 Mg PO DAILY PRN 05/06/17 Reported Oxygen Gas 2 Liters NA CONTINOUS 05/06/17 Reported Physical Physical Exam Vital Signs: Date Time Temp Pulse Resp B/P (MAP) Pulse Ox O2 Delivery O2 Flow Rate FiO2 06/24/17 11:56 36.8 80 21 105/56 (72) 98 Nasal Cannula 2.0 06/24/17 08:30 Nasal Cannula 2.0 06/24/17 08:24 36.7 91 24 124/61 (82) 94 Nasal Cannula 2.0 06/24/17 07:01 80 18 98 Nasal Cannula 2.0 06/24/17 04:13 Nasal Cannula 2.0 06/24/17 04:13 36.7 85 19 123/60 (81) 95 Nasal Cannula 2.0 06/24/17 01:38 82 16 95 Nasal Cannula 2.0 06/24/17 00:09 36.7 89 20 108/55 (72) 98 Nasal Cannula 2.0 06/24/17 00:01 Nasal Cannula 2.0 06/23/17 20:00 Nasal Cannula 2.0 06/23/17 19:15 36.7 95 23 114/58 (76) 93 Nasal Cannula 2.0 06/23/17 19:02 92 18 91 Nasal Cannula 2.0 06/23/17 16:00 Nasal Cannula 2.0 06/23/17 15:09 36.9 94 20 95/57 (70) 96 Nasal Cannula 2.0 06/23/17 14:29 83 16 93 Nasal Cannula 2.0 06/23/17 14:18 93 General Appearance: NO APPARENT DISTRESS, cachetic Head: NORMOCEPHALIC, ATRAUMATIC Eyes: PERRLA, NO DISCHARGE, EOMI, SCLERAE NORMAL, CONJUNCTIVAE NORMAL ENT: NORMAL EAR EXAM, NORMAL NASAL EXAM, NORMAL MOUTH EXAM, NORMAL THROAT EXAM , NORMAL DENTAL EXAM Neck: NORMAL RANGE OF MOTION, NO TENDERNESS, TRACHEA MIDLINE, NO STRIDOR Respiratory: other (decreased BS bilaterally ) Cardiovasular: REGULAR RATE/RHYTHM, NORMAL S1S2, NO M/G/R, NO MURMUR Abdomen: NON TENDER, NORMAL BOWEL SOUNDS, NO REBOUND, NO MASSES, NO GUARDING Genitourinary - Female: EXTERNAL GENITALIA NORMAL Back: NORMAL INSPECTION, NO MIDLINE TENDERNESS, NO CVA TENDERNESS Upper Extremities: NO EDEMA, NO DEFORMITY, NORMAL ROM Lower Extremities: other (bilateral chronic status dermatitis with LLE ) Pulses: carotid (R) (1+), carotid (L) (1+), dorsalis pedis (R) (1+), dorsalis pedis (L) (1+) Neuro: ALERT, ORIENTED x 3, NORMAL MOTOR EXAM, NORMAL SENSATION, NORMAL CEREBELLAR EXAM Diagnostics Labs Results Past 24 Hours Test 06/24/17 05:56 06/24/17 11:29 Range/Units White Blood Count 6.33 4.8-10.8 K/uL Red Blood Count 3.42 4.2-5.4 M/uL Hemoglobin 9.8 12.0-16.0 g/dL Hematocrit 31.4 37-47 % Mean Corpuscular Volume 91.8 80-100 fL Mean Corpuscular Hemoglobin 28.7 25-34 pg Mean Corpuscular Hemoglobin Concent 31.2 32-36 g/dl RDW Standard Deviation 50.2 36.4-46.3 fL RDW Coefficient of Variation 15.0 11.5-14.5 % Platelet Count 179 130-400 K/uL Mean Platelet Volume 9.5 7.4-10.4 fL Sodium Level 145 136-145 mmol/L Potassium Level 3.5 3.5-5.1 mmol/L Chloride Level 109 98-107 mmol/L Carbon Dioxide Level 32 21-32 mmol/L Anion Gap 4.0 3-11 mmol/L Blood Urea Nitrogen 19 7-18 mg/dl Creatinine 0.70 0.60-1.20 mg/dl Est Creatinine Clear Calc Drug Dose 38.6 ml/min Estimated GFR () 91.6 Estimated GFR (Non- 79.0 BUN/Creatinine Ratio 27.5 10-20 Random Glucose 109 70-99 mg/dl Calcium Level 8.4 8.5-10.1 mg/dl Diagnostic Radiology please refer to HPI EKG please refer to HPI Impression Assessment and Plan 87y/o female with Sever COPD currently admitted for acute on chronic SOB: 1) COPD: The patient is not able to perform inhalers so she is treated with chronic nebulizers (Atrovent/Levalbuterol) and on an off prednisone. Continue current nebs but as the patient is recovering I will drop her steroid dosing tomorrow. We can attempt Brovana treatment at this time. Will look for secondary etiologies for AECOPD such as PE and aspiration with a CTA and swallow eval. Will also obtain a VBG and Procalcitonin.
[2017-06-24] MEDS ORDERED: NURSING VERBAL MED ORDER ONE (13:15)
[2017-06-24] MEDS ORDERED: OPTIRAY 320 IV PRN (13:30)
[2017-06-24] MEDS: BUDESONIDE 0.5 MG/2 ML VIAL (PULMICORT) INH SCH (19:57)
[2017-06-24] MEDS: CITALOPRAM 20 MG TAB PO SCH (20:26)
--- NOTE | 2017-06-24 23:04 | DIAGNOSTIC IMAGING REPORT ---
CHEST CTA for PULMONARY ARTERIES CT DOSE: 192.23 mGy.cm HISTORY: Short of breath. TECHNIQUE: Multiaxial CT images of the chest were performed following the intravenous administration of contrast to evaluate the pulmonary arteries. Maximal intensity projection images were also obtained. A dose lowering technique was utilized adhering to the principles of ALARA. COMPARISON STUDY: Chest 06/24/2017. FINDINGS: Normal caliber thoracic aorta with no evidence for dissection. The heart is normal in size. No pericardial effusion. There is a filling defect seen within a left upper lobe subsegmental pulmonary artery consistent with a pulmonary embolus. The main pulmonary arteries are patent. No acute fractures within the visualized osseous structures. Multiple scattered hypodense lesions seen throughout the liver. These favor cysts. The largest measures 3.7 cm. The visualized spleen and adrenal glands are within normal limits. Trace left pleural effusion. No significant mediastinal or hilar lymphadenopathy. No pneumothorax. Mild bronchiectasis. A few scattered opacified terminal bronchi at the lung bases. Emphysema. Biapical subpleural scarlike densities. A 6 mm subpleural nodule within the left lower lobe on image 73. Groundglass density within the majority of the right upper lobe. There is also a 1.3 cm irregular nodular opacity within the right upper lobe on image 207. Patchy groundglass density within the left lower lobe. There is also faint ground glass density within the left upper lobe anteriorly. IMPRESSION: 1. A single subsegmental pulmonary embolus seen within the left upper lobe. 2. Groundglass densities seen within the right upper lobe, anterior left upper lobe, and left lower lobe. This favors a pneumonia. 3. There is also an irregular 1.3 cm nodule within the right upper lobe. This may be due to the suspected pneumonia. However, [address] follow-up is recommended to ensure resolution. 4. A few opacified bibasilar terminal bronchi. 5. A 6 mm subpleural nodule within the left lower lobe. 6. Emphysema. 7. Trace left pleural effusion. 8. These findings were called/faxed to the covering physician following dictation. Electronically signed by: Kane Vilchis M.D. 06/24/2017 11:03 PM Dictated Date/Time: 06/24/2017 10:50 PM
[2017-06-25] VITALS (8 sets, daily range): BP systolic 104–115; BP diastolic 61–75; PULSE 63–102; TEMP 36.4–36.6; O2SAT 95–100
[2017-06-25] MEDS: CEFEPIME IV 2,000 MG in SYRINGE 7.5 ML IV SCH ×2 (00:11→12:29)
--- NOTE | 2017-06-25 00:33 | Progress Note ---
Progress Note Date of Service Jun 25, 2017. Progress Note I was called by the nurse due to a CT scan of the patients chest which showed a PE in the MADAN. I started the patient on low dose IV heparin drip. I am rechecking her Hgb at 3am, as her Hgb has been dropping. - Gilbert Nuñez PGY2
[2017-06-25] MEDS ORDERED: HEPARIN IV LOW DOSE NO BOLUS SCH (00:45)
[2017-06-25] MEDS ORDERED: HEPARIN 25,000 UNIT/500ML D5W 500 ML IV SCH (01:15)
[2017-06-25] MEDS: LEVALBUTEROL 1.25MG/3ML NEB INH SCH ×4 (02:01→20:06)
[2017-06-25] MEDS: LEVOTHYROXINE 25 MCG TAB PO SCH (06:32)
[2017-06-25 06:44] LABS: HEMOGLOBIN 10.4 g/dL (12.0-16.0); MEAN CORPUSCULAR HEMOGLOBIN 29.3 pg (25-34); MEAN CORPUSCULAR HGB CONC 31.5 g/dl (32-36); MEAN PLATELET VOLUME 9.6 fL (7.4-10.4); PLATELET COUNT 210 K/uL (130-400); RED CELL DISTRIBUTION WIDTH CV 14.8 % (11.5-14.5); RED CELL DISTRIBUTION WIDTH SD 50.9 fL (36.4-46.3); WHITE BLOOD COUNT 7.92 K/uL (4.8-10.8)
[2017-06-25 06:59] LABS: PTT PATIENT 47.5 SECONDS (21.0-31.0)
[2017-06-25] MEDS: BUDESONIDE 0.5 MG/2 ML VIAL (PULMICORT) INH SCH ×2 (07:06→19:18)
[2017-06-25] MEDS: ARFORMOTEROL TART 15MCG/2ML VIAL INH SCH ×2 (07:06→19:18)
[2017-06-25 07:14] LABS: CALCIUM 8.4 mg/dl (8.5-10.1); CREATININE 0.61 mg/dl (0.60-1.20); POTASSIUM 3.8 mmol/L (3.5-5.1)
[2017-06-25] MEDS: METHYLPREDNISOLONE IV 30 MG in SYRINGE 0 ML IV SCH (07:45)
[2017-06-25] MEDS: BOOST VANILLA PUDDING CUP PO SCH (08:23)
--- NOTE | 2017-06-25 12:39 | DIAGNOSTIC IMAGING REPORT ---
VIDEO SWALLOW CLINICAL HISTORY: possible aspiration, hypoxia. Acute and chronic respiratory failure. COMPARISON STUDY: No previous studies for comparison. Fluoroscopy time: 1.6 minutes. FINDINGS: No tracheal aspiration was identified with thin liquids, nectar thick liquids, honey thickened liquids, pudding or crackers with paste. There was premature spillage. There was mild prominence of the cricopharyngeus. Moderate to severe esophageal dysmotility was noted. IMPRESSION: 1. No tracheal aspiration identified. 2. Mild prominence of the cricopharyngeus. 3. Moderate to severe esophageal dysmotility. 4. Full recommendations by speech pathology to follow. Electronically signed by: Shant Byers M.D. 06/25/2017 12:38 PM Dictated Date/Time: 06/25/2017 12:35 PM
--- NOTE | 2017-06-25 12:44 | Hospitalist Progress Note ---
Hospitalist Progress Note Date of Service Jun 25, 2017. Subjective Pt evaluation today including: conversation w/ patient, physical exam, chart review, lab review, review of inpatient medication list Voiding: no voiding problems Ms. Bowles is feeling about the same as yesterday. Her daughter is bedside. We discussed the findings of the patient's CT which showed upper lobe pneumonia and PE as well as a nodule. We discussed extensively the risks and benefits of anticoagulation for PE as well as possible precipitating causes. Nursing gave the patient information on Eliquis. After leaving patient and daughter to discuss they decided that Ms. Bowles would like to go forward with anticoagulation therapy. ROS Constitutional: no chills, aches, sweats or fever Respiratory: + sob, no cough, sputum, or wheezing Cardiac: no chest pain, palpitations, edema, orthopnea or lightheadedness GI: no abdominal pain, nausea, vomiting, diarrhea or constipation : no dysuria or hesitancy Extremities: no joint pain or weakness Skin: no rash All other systems reviewed and negative Medications Medications Administered Medications (Trade) Dose Ordered Sig/Alphonso Route Start Time Stop Time Status Last Admin Dose Admin Methylprednisolone Sodium Succinate (Solu-Medrol IV) 125 mg NOW STAT IV 06/22/17 14:18 06/22/17 14:19 DC 06/22/17 14:51 125 MG Albuterol/ Ipratropium (Duoneb) 12 ml ONE ONCE INH 06/22/17 14:30 06/22/17 14:32 DC 06/22/17 14:43 12 ML Heparin Sodium (Porcine) (Heparin Sq 5000 Unit/0.5ml) 5,000 unit Q12 SQ 06/22/17 21:00 06/25/17 01:05 DC 06/24/17 20:29 5,000 UNIT Arformoterol Tartrate (Brovana 15MCG/ 2ML Neb Soln) 15 mcg BIDR INH 06/22/17 20:00 07/22/17 19:59 06/25/17 07:06 15 MCG Citalopram Hydrobromide (celeXA TAB) 10 mg HS PO 06/22/17 21:00 07/22/17 20:59 06/24/17 20:26 10 MG Levothyroxine Sodium (Synthroid Tab) 25 mcg DAILYBB PO 06/23/17 06:00 07/23/17 05:59 06/25/17 06:32 25 MCG Levalbuterol (Xopenex 1.25MG/ 3ML Neb) 1.25 mg Q6R INH 06/22/17 21:00 07/22/17 20:59 06/24/17 14:16 1.25 MG Methylprednisolone Sodium Succinate 30 mg/Syringe 0.48 ml @ 1.5 mls/min TID IV 06/22/17 21:00 06/23/17 12:23 DC 06/23/17 08:01 1.5 MLS/MIN Potassium Chloride/Sodium Chloride 1,000 ml @ 50 mls/hr Q20H IV 06/22/17 18:00 06/24/17 13:15 DC 06/24/17 02:14 50 MLS/HR Piperacillin Sod/ Tazobactam Sod 3.375 gm/Sodium Chloride 115 ml @ 230 mls/hr NOW ONCE IV 06/22/17 18:00 06/22/17 18:29 DC 06/22/17 19:38 230 MLS/HR Piperacillin Sod/ Tazobactam Sod 3.375 gm/Sodium Chloride 115 ml @ 28.75 mls/ hr Q8H IV 06/23/17 00:00 06/23/17 15:09 DC 06/23/17 08:06 28.75 MLS/HR Methylprednisolone Sodium Succinate 30 mg/Syringe 0.48 ml @ 1.5 mls/min BID IV 06/23/17 21:00 07/22/17 20:59 06/25/17 07:45 1.5 MLS/MIN Cefepime HCl 2000 mg/Syringe 20 ml @ 5 mls/min DAILY@1600 IV 06/23/17 16:00 06/24/17 11:04 DC 06/23/17 15:59 5 MLS/MIN Enteral Nutritional Formula (Boost Pudding) 1 cup DAILY PO 06/24/17 09:00 07/24/17 08:59 06/24/17 08:25 1 CUP Cefepime HCl 2000 mg/Syringe 20 ml @ 5 mls/min NOW ONCE IV 06/24/17 11:15 06/24/17 11:18 DC 06/24/17 12:58 5 MLS/MIN Cefepime HCl 2000 mg/Syringe 20 ml @ 5 mls/min Q12@0000,1200 IV 06/25/17 00:00 06/30/17 15:59 06/25/17 00:11 5 MLS/MIN Budesonide (Pulmicort Respules 0.5MG/ 2ML Neb Soln) 0.5 mg BIDR INH 06/24/17 20:00 07/24/17 19:59 06/25/17 07:06 0.5 MG Heparin Sodium/ Dextrose 500 ml @ 10 mls/hr Q24H IV 06/25/17 01:15 07/25/17 01:14 06/25/17 02:06 10 MLS/HR Objective Vital Signs Date Time Temp Pulse Resp B/P (MAP) Pulse Ox O2 Delivery O2 Flow Rate FiO2 06/25/17 08:00 Nasal Cannula 2.0 06/25/17 07:35 36.5 69 20 115/73 (87) 100 06/25/17 07:07 70 18 98 Nasal Cannula 2.0 06/25/17 04:12 36.5 102 18 115/75 (88) 99 Nasal Cannula 2.0 06/25/17 04:00 Nasal Cannula 2.0 06/25/17 00:00 Nasal Cannula 2.0 06/24/17 23:44 36.4 68 17 117/74 (88) 100 Nasal Cannula 2.0 06/24/17 20:00 Nasal Cannula 2.0 06/24/17 19:57 80 18 98 Nasal Cannula 2.0 06/24/17 16:00 Nasal Cannula 2.0 06/24/17 14:17 80 16 98 Nasal Cannula 2.0 06/24/17 13:57 36.5 83 22 121/71 (88) 96 Nasal Cannula 2.0 06/24/17 13:15 36.8 80 21 98 2.0 Physical Exam Notes: General: no distress Eyes: normal inspection, PERLL Respiratory: chest non tender, clear to auscultation, normal breath sounds, no respiratory distress, no accessory muscle use Cardiac: regular rate and rhythm, no rub or gallop, no murmur, no edema, no jvd GI/: active bowel sounds, no abd pain or tenderness, soft, non distended Extremities: normal range of motion, normal strength, non tender Neuro/Psych: alert and oriented x 3, normal mood and affect Skin: normal color, dry Laboratory Results Last 24 Hours Test 06/24/17 12:47 06/25/17 06:29 Venous Blood pH 7.35 Venous Blood Partial Pressure CO2 61 mmHg Venous Blood Partial Pressure O2 54 mmHg Venous Blood HCO3 33 mmol/L Venous Blood Oxygen Saturation 84.0 % Venous Blood Base Excess 6.1 mEq/L Procalcitonin < 0.05 ng/ml White Blood Count 7.92 K/uL Red Blood Count 3.55 M/uL Hemoglobin 10.4 g/dL Hematocrit 33.0 % Mean Corpuscular Volume 93.0 fL Mean Corpuscular Hemoglobin 29.3 pg Mean Corpuscular Hemoglobin Concent 31.5 g/dl RDW Standard Deviation 50.9 fL RDW Coefficient of Variation 14.8 % Platelet Count 210 K/uL Mean Platelet Volume 9.6 fL Activated Partial Thromboplast Time 47.5 SECONDS Partial Thromboplastin Ratio 1.8 Sodium Level 145 mmol/L Potassium Level 3.8 mmol/L Chloride Level 111 mmol/L Carbon Dioxide Level 34 mmol/L Anion Gap 0.0 mmol/L Blood Urea Nitrogen 20 mg/dl Creatinine 0.61 mg/dl Est Creatinine Clear Calc Drug Dose 41.2 ml/min Estimated GFR () 95.8 Estimated GFR (Non- 82.7 BUN/Creatinine Ratio 33.6 Random Glucose 115 mg/dl Calcium Level 8.4 mg/dl Assessment and Plan Patient is a pleasant 87 y/o female, with PMHx of RA, hypothyroidism, peripheral edema, anxiety/depression, and COPD, who presented to the ED from [facility] due to worsening CXR. Acute on chronic respiratory failure, PNA, COPD: - cardiac enzymes wnl - O2 protocol- patient on chronic 2L - continue cefepime - taper IV Solu Medrol - continue 30 mg bid today as patient has some faint wheezing - DuoNebs QID and PRN for sob/wheezing - Continue IV NS + KCL supplement at 50 ml/hr - MRSA swab negative, UA with +1 RBCs and oxylate crystals - Continue home inhalers - pulm consulted - video swallow today, speech consult PE - CTA scan yeterday showed left upper lobe PE - low dose heparin gtt overnight - will start Eliquis tonight and d/c drip Goals of care: Palliative care consulted - POLST completed Peripheral edema: restart lasix tomorrow as bps stable Severe protein calorie malnutrition - serum albumin 2.5 - Nutrition consulted Hypothyroidism: - TSH 3.1 - Continue Synthroid RA: Continue Methotrexate on Sundays Anxiety/depression: Continue Celexa DVT prophylaxis - Eliquis Code status: LEVEL V, DNR Dispo: From [facility]- PT/OT and CM consulted
[2017-06-25] MEDS ORDERED: FUROSEMIDE 20 MG TAB PO PRN (12:45)
[2017-06-25] MEDS: WARFARIN SOD 5 MG TAB PO SCH (14:41)
[2017-06-25] MEDS: ENOXAPARIN 60 MG/0.6 ML SYR SQ SCH (14:41)
--- NOTE | 2017-06-25 19:28 | PULMONARY PROGRESS NOTE ---
DATE: 06/25/2017 This is a pulmonary progress note. PROBLEM LIST: Includes [id number] respiratory failure with hypoxia. SUBJECTIVE: Patient reports that she is actually feeling better from a pulmonary perspective today. We speak with her daughter, her shortness of breath has been going on since about April, breathing seems to be improved. She does not feel as tight in her chest. She does not feel as weak and tired. She is not having any cough or congestion. No wheezing, no chest discomfort with a deep breath. She did have testing done yesterday to include a video swallow as well as a CT angiogram. These were reviewed. She also had a VBG and a procalcitonin. Patient's daughter and staff report no significant problems. OBJECTIVE: GENERAL: Patient is an 87-year-old female lying in bed, small framed. She is alert, interactive and cooperative. She is hard of hearing. No acute respiratory distress. She is able to complete sentences without difficulty. VITAL SIGNS: Temperature 36.4, pulse 79, respirations 18, blood pressure 107/61, pulse ox 98-100% on 2 liters. NECK: Thin, no masses, no adenopathy, no bruit. CHEST: Diminished breath sounds. Do not really appreciate any adventitious breath sounds currently. No wheeze, rales or rhonchi noted. CARDIOVASCULAR: Regular rate and rhythm. No murmurs, gallops or rubs noted. ABDOMEN: Bowel sounds present. Abdomen soft, nontender. No guarding, rigidity or organomegaly. EXTREMITIES: No erythema, no edema. NEUROLOGIC: Cranial nerves II-XII intact. No focal deficit noted. LABORATORY DATA: White count of 7000, H&H 10.4 and 33.0, platelet count 210,000. VBG shows a pH of 7.35, pCO2 of 61, pO2 of 54. Procalcitonin less than 0.05. Video swallow showed esophageal dysmotility. Otherwise, shows no evidence of aspiration. CT of the chest shows a 1.3 cm irregular nodule within the right upper lobe with recommendation for 2-month followup of some densities in the right upper lobe, anterior left upper lobe, left lower lobe, favoring pneumonia. Patient also was found to have a single subsegmental pulmonary embolus in the left upper lobe. IMPRESSION: This is an 87-year-old female with what appears to be pulmonary embolism as well as a 1.3 cm right upper lobe nodule. At this point, in light of her overall condition as well as her advanced age, would recommend just to monitor with imaging in a couple months' the nodule. In regards to the pulmonary embolism, patient is already on heparin and is going to be transitioned over to Coumadin, this is probably what is accounting for her dyspnea. Patient also has a chronic respiratory failure with acute episode of hypoxia. At this point, I do want to decrease her steroids. Otherwise, continue her meds as they are. She may follow up in the office as an outpatient if the family wishes. Patient was seen and examined agree with above plan. VASYL
[2017-06-25] MEDS: CITALOPRAM 20 MG TAB PO SCH (20:48)
[2017-06-25] MEDS ORDERED: APIXABAN 2.5 MG TAB PO SCH (21:00)
[2017-06-25] MEDS ORDERED: METHYLPREDNISOLONE IV 20 MG in SYRINGE 0 ML IV SCH (21:00)
[2017-06-26] VITALS (7 sets, daily range): BP systolic 115–122; BP diastolic 64–75; PULSE 73–87; TEMP 36.4–36.7; O2SAT 93–100
[2017-06-26] MEDS: CEFEPIME IV 2,000 MG in SYRINGE 7.5 ML IV SCH ×2 (00:11→11:53)
[2017-06-26] MEDS: LEVALBUTEROL 1.25MG/3ML NEB INH SCH ×4 (01:50→20:02)
[2017-06-26] MEDS: LEVOTHYROXINE 25 MCG TAB PO SCH (06:20)
[2017-06-26] MEDS: ARFORMOTEROL TART 15MCG/2ML VIAL INH SCH ×2 (07:00→20:00)
[2017-06-26] MEDS: BUDESONIDE 0.5 MG/2 ML VIAL (PULMICORT) INH SCH ×2 (07:01→20:00)
[2017-06-26] MEDS: BOOST VANILLA PUDDING CUP PO SCH (08:28)
[2017-06-26 08:34] LABS: INR 1.2 (0.9-1.1); PTT PATIENT 25.4 SECONDS (21.0-31.0)
--- NOTE | 2017-06-26 12:44 | Pulmonology Progress Note ---
Pulmonary Progress Note Date of Service Jun 26, 2017. Attending Dr. Posey Subjective Patient still has some dyspnea at rest but overall notes increasing pulmonary stability Objective Patient able to sit up in bed slowly today with no signs of accessory respiratory muscle use or dyspnea during our conversation: Vital signs: Stable on 2-3 liters supplemental nasal cannula/oxygen Respiratory: Mild rhonchi bilaterally Cardiac: S1-S2 distant heart sounds regular rate and rhythm Abdomen: Soft nontender positive bowel sounds Extremities: Left lower extremity with healing wound Video swallow: Showing signs of dysmotility but no jose aspiration CT angiogram: 1.3 cm irregular nodule within the right upper lobe, subsegmental pulmonary embolism noted, ground-glass nodules within the right upper lobe, anterior left upper lobe, left lower lobe consistent with inflammatory/infectious changes Medications: Coumadin, Lovenox, Pulmicort/budesonide nebulized b.i.d., Xopenex nebulized, Brovana nebulized, prednisone 20 mg b.i.d. Assessment & Plan 87-year-old female with severe COPD admitted for acute on chronic respiratory insufficiency: 1. COPD exacerbation: The exact etiology of this patient's exacerbation is unknown but she does show signs of subsegmental pulmonary embolism as well as ground-glass changes on CT scan. At this time due to her underlying severe COPD weakness I do suggest we continue anticoagulation for the pulmonary emboli. Or also monitoring this patient for possible pneumonia which could be present on her current CAT scans/ground-glass changes. 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 As the patient is responding well to current therapy continue to monitor but she shows clinical decline should initiate antibiotics. 2. Pulmonary nodules: Patient with diffuse pulmonary nodules will require three-month noncontrast CT follow-up 3. Pulmonary emboli: Patient has subsegmental pulmonary emboli which is often noted even on patient's without physiologically significant pulmonary emboli but due to her underlying frailty and severe COPD suggest we continue anticoagulation. Patient is notably improving at this time pulmonary will sign off please contact the team if the patient has clinical changes. Data Medications: Current Inpatient Medications Medications (Trade) Dose Ordered Sig/Alphonso Route Start Time Stop Time Status Last Admin Dose Admin Acetaminophen (Tylenol Tab) 650 mg Q4H PRN PO 06/22/17 16:15 07/22/17 16:14 Al Hydrox/Mg Hydrox/Simethicone (Maalox Max Susp) 15 ml Q4H PRN PO 06/22/17 16:15 07/22/17 16:14 Magnesium Hydroxide (Milk Of Magnesia Susp) 30 ml Q12H PRN PO 06/22/17 16:15 07/22/17 16:14 Ondansetron HCl (Zofran Inj) 4 mg Q6H PRN IV 06/22/17 16:15 07/22/17 16:14 Nitroglycerin (Nitrostat Tab) 0.4 mg UD PRN SL 06/22/17 16:15 07/22/17 16:14 Morphine Sulfate (MoRPHine SULFATE INJ) 2 mg Q30M PRN IV 06/22/17 16:15 07/06/17 16:14 Polyethylene (Miralax Powder Packet) 17 gm DAILY PRN PO 06/22/17 16:15 07/22/17 16:14 Arformoterol Tartrate (Brovana 15MCG/ 2ML Neb Soln) 15 mcg BIDR INH 06/22/17 20:00 07/22/17 19:59 06/26/17 07:00 15 MCG Citalopram Hydrobromide (celeXA TAB) 10 mg HS PO 06/22/17 21:00 07/22/17 20:59 06/25/17 20:48 10 MG Levothyroxine Sodium (Synthroid Tab) 25 mcg DAILYBB PO 06/23/17 06:00 07/23/17 05:59 06/26/17 06:20 25 MCG Methotrexate (Methotrexate Tab) 5 mg Lawrence@2100 PO 06/27/17 21:00 07/22/17 16:14 Potassium Chloride (Klor-Con M10) 10 meq DAILY PRN PO 06/22/17 16:15 07/22/17 16:14 Levalbuterol (Xopenex 1.25MG/ 3ML Neb) 1.25 mg Q6R INH 06/22/17 21:00 07/22/17 20:59 06/26/17 01:50 1.25 MG Levalbuterol (Xopenex 1.25MG/ 3ML Neb) 1.25 mg Q2H PRN INH 06/22/17 16:15 07/22/17 16:14 Enteral Nutritional Formula (Boost Pudding) 1 cup DAILY PO 06/24/17 09:00 07/24/17 08:59 06/24/17 08:25 1 CUP Budesonide (Pulmicort Respules 0.5MG/ 2ML Neb Soln) 0.5 mg BIDR INH 06/24/17 20:00 07/24/17 19:59 06/26/17 07:01 0.5 MG Ioversol (Optiray 320) 100 ml UD PRN IV 06/24/17 13:30 06/28/17 13:29 Furosemide (Lasix Tab) 20 mg DAILY PRN PO 06/25/17 12:45 07/25/17 12:44 Warfarin Sodium (Coumadin Tab) 5 mg DAILY@16 PO 06/25/17 16:00 07/25/17 15:59 06/25/17 14:41 5 MG Enoxaparin Sodium (Lovenox Inj) 60 mg Q24H SQ 06/25/17 14:30 07/25/17 14:29 06/25/17 14:41 60 MG Prednisone (PredniSONE TAB) 20 mg BID PO 06/26/17 09:00 07/12/17 08:59 06/26/17 09:37 20 MG Vital Signs: Date Time Temp Pulse Resp B/P (MAP) Pulse Ox O2 Delivery O2 Flow Rate FiO2 06/26/17 08:45 Nasal Cannula 2.0 06/26/17 07:42 36.4 79 16 122/75 (91) 100 Nasal Cannula 2.0 06/26/17 07:01 73 18 99 Nasal Cannula 3.0 06/26/17 01:51 78 16 95 Nasal Cannula 2.0 06/26/17 00:10 Nasal Cannula 2.0 06/25/17 23:55 36.6 63 18 106/63 (77) 95 Nasal Cannula 1.0 06/25/17 19:30 Nasal Cannula 2.0 06/25/17 19:20 83 16 98 Nasal Cannula 2.0 06/25/17 16:00 Nasal Cannula 2.0 06/25/17 15:07 36.4 86 20 104/69 (81) 98 06/25/17 14:27 77 18 98 Nasal Cannula 2.0 06/25/17 13:19 36.4 79 18 107/61 (76) 100 Nasal Cannula 2.0 Laboratory Results: Last 24 Hours Test 06/26/17 07:36 Prothrombin Time 12.3 SECONDS Prothromb Time International Ratio 1.2 Activated Partial Thromboplast Time 25.4 SECONDS Partial Thromboplastin Ratio 1.0
[2017-06-26] MEDS: LEVOFLOXACIN 750 MG TAB PO SCH (13:43)
--- NOTE | 2017-06-26 14:42 | Progress Note ---
Subjective Date of Service: Jun 26, 2017. Subjective Pt evaluation today including: conversation w/ patient, conversation w/ family , physical exam, chart review, conversation w/ cleaning validation consultant, review of inpatient medication list Significant generalized weakness, was reluctant to be out of bed to chair, otherwise no complaint, still on oxygen, she was not on oxygen prior to this admission Problem List Medical Problems: (1) COPD exacerbation Status: Acute (2) COPD exacerbation Status: Acute (3) COPD with exacerbation Status: Acute (4) Hypercapnic respiratory failure Status: Acute (5) Hypoxia Status: Acute (6) Right upper lobe pneumonia Status: Acute (7) Right upper lobe pneumonia Status: Acute Review of Systems Constitutional: + weakness, + fatigue, No fever, No chills, No sweats, No weight loss, No problem reported Eyes: No worsening of vision, No eye pain, No redness, No discharge, No diplopia ENT: No hearing loss, No unusual epistaxis, No nasal symptoms, No sore throat, No tinnitus, No dental problems, No trouble swallowing Respiratory: + shortness of breath, No cough, No sputum, No wheezing, No dyspnea on exertion, No dyspnea at rest, No hemoptysis Cardiac: No chest pain, No orthopnea, No PND, No edema, No claudication, No palpitations Abdomen: No pain, No nausea, No vomiting, No diarrhea, No constipation Musculoskeletal: No joint pain, No muscle pain, No swelling, No calf pain Female : No dysuria, No urinary frequency, No hematuria, No incontinence, No abnormal vaginal bleeding, No vaginal discharge Neurologic: No memory loss, No paralysis, No weakness, No numbness/tingling, No vertigo, No balance problems Psychiatric: No depression symptoms, No anhedonism, No anxiety, No insomnia, No substance abuse Heme: No abnormal bleeding/bruising, No clotting problems, No swollen lymph nodes, No night sweats Endo: No fatigue, No excessive thirst, No excessive urination Skin: No rash, No itch, No new/changing skin lesions, No color change, No bleeding Objective Vital Signs Date Time Temp Pulse Resp B/P (MAP) Pulse Ox O2 Delivery O2 Flow Rate FiO2 06/26/17 08:45 Nasal Cannula 2.0 06/26/17 07:42 36.4 79 16 122/75 (91) 100 Nasal Cannula 2.0 06/26/17 07:01 73 18 99 Nasal Cannula 3.0 06/26/17 01:51 78 16 95 Nasal Cannula 2.0 06/26/17 00:10 Nasal Cannula 2.0 06/25/17 23:55 36.6 63 18 106/63 (77) 95 Nasal Cannula 1.0 06/25/17 19:30 Nasal Cannula 2.0 06/25/17 19:20 83 16 98 Nasal Cannula 2.0 06/25/17 16:00 Nasal Cannula 2.0 06/25/17 15:07 36.4 86 20 104/69 (81) 98 Physical Exam General Appearance: WD/WN, no apparent distress, + cachetic, + thin, + pertinent finding (Frail) Eyes: normal inspection, PERRL, EOMI, sclerae normal ENT: normal ENT inspection, hearing grossly normal, pharynx normal Neck: supple, no adenopathy, thyroid normal, no JVD, no carotid bruits, trachea midline Respiratory/Chest: chest non-tender, normal breath sounds, no respiratory distress, no accessory muscle use, + decreased breath sounds Cardiovascular: regular rate, rhythm, no edema, no gallop, no JVD, no murmur Abdomen: normal bowel sounds, non tender, soft, no organomegaly, no pulsatile mass Extremities: normal range of motion, non-tender, normal inspection, no pedal edema, no calf tenderness, normal capillary refill, pelvis stable Neurologic/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, no motor/sensory deficits, alert, normal mood/affect, oriented x 3 Skin: normal color, warm/dry, no rash Lymphatic: no adenopathy Laboratory Results Last 24 Hours Test 06/26/17 07:36 Prothrombin Time 12.3 SECONDS Prothromb Time International Ratio 1.2 Activated Partial Thromboplast Time 25.4 SECONDS Partial Thromboplastin Ratio 1.0 Assessment and Plan 87-year-old white female admitted on June 22, 2017 because of acute respiratory failure PMHx of RA, hypothyroidism, peripheral edema, anxiety/depression, and COPD chest CT per report below A single subsegmental pulmonary embolus seen within the left upper lobe. 2. Groundglass densities seen within the right upper lobe, anterior left upper lobe, and left lower lobe. This favors a pneumonia. 3. There is also an irregular 1.3 cm nodule within the right upper lobe. This may be due to the suspected pneumonia. However, [address] follow-up is recommended to ensure resolution. 4. A few opacified bibasilar terminal bronchi. 5. A 6 mm subpleural nodule within the left lower lobe. 6. Emphysema. 7. Trace left pleural effusion. 8. These findings were called/faxed to the covering physician following dictation. Acute on chronic respiratory failure, Acute recurrent pre-failure secondary to acute pulmonary embolization , multiple lobe PNA, COPD have diagnosed acute PE, was on heparin drip, has discussed with patient and family about options of anticoagulation which include NOAC or Coumadin, currently is on Coumadin with bridging of Lovenox, Continue support oxygen, continue antibiotics for shock., tapering Solu-Medrol, continue nebulizer treatment Again discussed with patient's daughter, goals of care: lung nodules the biggest was 1.3 cm in the right upper lobe, as discussed with patient and daughter about this need to follow-up with PCP Palliative care consulted, patient is do not resuscitation, daughter is considering to continue stay in [facility] living [facility], and if patient's condition getting worse will have palliative care started I encourage her to talk to [facility] renal case manager, however for the aspect of acute new diagnosed PE, patient and daughter want to be on aggressive treatment in this aspect, may start hospice care soon Severe protein calorie malnutrition, Nutrition consulted left lower ext wound, continue wound care Patient generally reported weakness, she is from personal care facility in [facility], discussed with patient's daughter regarding above the to the temporary to sniff, however patient's daughter reluctant to do that , want to have patient going back to personal care facilities because of good support, and daughter reported that will transition to palliative care if not doing well, I agreed Encourage increased activity, out of bed to the chair, taper off oxygen if possible, Increase activity, possible discharge on Wednesday Continued [facility] stay due to: home environment unsafe for pt Discharge planning: home
[2017-06-26] MEDS: WARFARIN SOD 5 MG TAB PO SCH (15:36)
[2017-06-26] MEDS: ENOXAPARIN 60 MG/0.6 ML SYR SQ SCH (15:37)
[2017-06-26] MEDS: CITALOPRAM 20 MG TAB PO SCH (20:39)
[2017-06-27] MEDS: LEVALBUTEROL 1.25MG/3ML NEB INH SCH ×4 (01:58→19:40)
[2017-06-27] MEDS: LEVOTHYROXINE 25 MCG TAB PO SCH (06:21)
[2017-06-27 06:55] VITALS: PULSE 72; O2SAT 94
[2017-06-27] MEDS: ARFORMOTEROL TART 15MCG/2ML VIAL INH SCH ×2 (06:55→19:45)
[2017-06-27] MEDS: BUDESONIDE 0.5 MG/2 ML VIAL (PULMICORT) INH SCH ×2 (06:55→19:45)
[2017-06-27 07:23] VITALS: BP 111/61; PULSE 73; TEMP 36.4; O2SAT 94
[2017-06-27 07:46] LABS: HEMATOCRIT 35.5 % (37-47); MEAN CELL VOLUME 93.7 fL (80-100); MEAN PLATELET VOLUME 9.7 fL (7.4-10.4); PLATELET COUNT 171 K/uL (130-400); RED CELL DISTRIBUTION WIDTH CV 14.8 % (11.5-14.5); RED CELL DISTRIBUTION WIDTH SD 49.6 fL (36.4-46.3)
[2017-06-27] MEDS: BOOST VANILLA PUDDING CUP PO SCH (07:53)
[2017-06-27 07:55] LABS: PTT PATIENT 26.9 SECONDS (21.0-31.0)
[2017-06-27 14:18] VITALS: PULSE 76; O2SAT 96
[2017-06-27] MEDS: WARFARIN SOD 3 MG TAB PO SCH (15:40)
[2017-06-27] MEDS: ENOXAPARIN 60 MG/0.6 ML SYR SQ SCH (15:40)
[2017-06-27 15:45] VITALS: BP 120/78; PULSE 91; TEMP 36.7; O2SAT 94
--- NOTE | 2017-06-27 15:50 | Progress Note ---
Subjective Date of Service: Jun 27, 2017. Subjective Pt evaluation today including: conversation w/ patient, conversation w/ family , physical exam, chart review, lab review, review of studies, conversation w/ wedding consultant, review of inpatient medication list Doing the same, report has been out of bed to the chair, currently has no complaint, eating fair, bowel movement and urination is okay Problem List Medical Problems: (1) COPD exacerbation Status: Acute (2) COPD exacerbation Status: Acute (3) COPD with exacerbation Status: Acute (4) Hypercapnic respiratory failure Status: Acute (5) Hypoxia Status: Acute (6) Right upper lobe pneumonia Status: Acute (7) Right upper lobe pneumonia Status: Acute Review of Systems Constitutional: + weakness, + fatigue, No fever, No chills, No sweats, No weight loss, No problem reported Eyes: No worsening of vision, No eye pain, No redness, No discharge, No diplopia ENT: No hearing loss, No unusual epistaxis, No nasal symptoms, No sore throat, No tinnitus, No dental problems, No trouble swallowing Respiratory: No cough, No sputum, No wheezing, No shortness of breath, No dyspnea on exertion, No dyspnea at rest, No hemoptysis Cardiac: No chest pain, No orthopnea, No PND, No edema, No claudication, No palpitations Abdomen: + problem reported (Decreased appetite), No pain, No nausea, No vomiting, No diarrhea, No constipation Musculoskeletal: No joint pain, No muscle pain, No swelling, No calf pain Female : No dysuria, No urinary frequency, No hematuria, No incontinence, No abnormal vaginal bleeding, No vaginal discharge Neurologic: No memory loss, No paralysis, No weakness, No numbness/tingling, No vertigo, No balance problems Psychiatric: No depression symptoms, No anhedonism, No anxiety, No insomnia, No substance abuse Heme: No abnormal bleeding/bruising, No clotting problems, No swollen lymph nodes, No night sweats Endo: No fatigue, No excessive thirst, No excessive urination Skin: No rash, No itch, No new/changing skin lesions, No color change, No bleeding Objective Vital Signs Date Time Temp Pulse Resp B/P (MAP) Pulse Ox O2 Delivery O2 Flow Rate FiO2 06/27/17 14:18 76 18 96 Nasal Cannula 2.0 06/27/17 08:30 Nasal Cannula 2.0 06/27/17 07:23 36.4 73 16 111/61 (78) 94 Nasal Cannula 2.0 06/27/17 06:55 72 18 94 Nasal Cannula 2.0 06/27/17 00:20 Nasal Cannula 2.0 06/26/17 23:15 36.4 83 18 115/72 (86) 98 Nasal Cannula 2.0 06/26/17 20:02 87 18 96 Nasal Cannula 2.0 06/26/17 19:30 Nasal Cannula 2.0 06/26/17 16:45 Nasal Cannula 2.0 Physical Exam General Appearance: WD/WN, no apparent distress, + thin, + pertinent finding ( Frail, smiling) Eyes: normal inspection, PERRL, EOMI, sclerae normal ENT: normal ENT inspection, hearing grossly normal, pharynx normal Neck: supple, no adenopathy, thyroid normal, no JVD, no carotid bruits, trachea midline Respiratory/Chest: chest non-tender, normal breath sounds, no respiratory distress, no accessory muscle use, + decreased breath sounds Cardiovascular: regular rate, rhythm, no edema, no gallop, no JVD, no murmur Abdomen: normal bowel sounds, non tender, soft, no organomegaly, no pulsatile mass Extremities: normal range of motion, non-tender, normal inspection, no pedal edema, no calf tenderness, normal capillary refill, pelvis stable 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, no motor/sensory deficits, alert, normal mood/affect, oriented x 3 Skin: normal color, warm/dry, no rash Lymphatic: no adenopathy Laboratory Results Last 24 Hours Test 06/27/17 07:16 White Blood Count 6.20 K/uL Red Blood Count 3.79 M/uL Hemoglobin 11.0 g/dL Hematocrit 35.5 % Mean Corpuscular Volume 93.7 fL Mean Corpuscular Hemoglobin 29.0 pg Mean Corpuscular Hemoglobin Concent 31.0 g/dl RDW Standard Deviation 49.6 fL RDW Coefficient of Variation 14.8 % Platelet Count 171 K/uL Mean Platelet Volume 9.7 fL Prothrombin Time 20.8 SECONDS Prothromb Time International Ratio 2.0 Activated Partial Thromboplast Time 26.9 SECONDS Partial Thromboplastin Ratio 1.0 Assessment and Plan 87-year-old white female admitted on June 22, 2017 because of acute respiratory failure PMHx of RA, hypothyroidism, peripheral edema, anxiety/depression, and COPD chest CT per report below A single subsegmental pulmonary embolus seen within the left upper lobe. 2. Groundglass densities seen within the right upper lobe, anterior left upper lobe, and left lower lobe. This favors a pneumonia. 3. There is also an irregular 1.3 cm nodule within the right upper lobe. This may be due to the suspected pneumonia. However, [address] follow-up is recommended to ensure resolution. 4. A few opacified bibasilar terminal bronchi. 5. A 6 mm subpleural nodule within the left lower lobe. 6. Emphysema. 7. Trace left pleural effusion. 8. These findings were called/faxed to the covering physician following dictation. Acute on chronic respiratory failure, Acute recurrent pre-failure secondary to acute pulmonary embolization , multiple lobe PNA, COPD have diagnosed acute PE, was on heparin drip, has discussed with patient and family about options of anticoagulation which include NOAC or Coumadin, currently is on Coumadin with bridging of Lovenox, INR is 2 today, which was jumping from 1.2-2, I decrease Coumadin from 5 mg to 3mg, today will be fifths days of total coverage of heparin or Lovenox, will discontinue Lovenox after today's dose, and continue Coumadin, need to have PT/INR checking in 2-3 days if discharge tomorrow Continue support oxygen, Had been on antibiotic because of pneumonia, which was discontinued after 5 days of therapy, patient continued to be stable after discontinue antibiotics tapering oral prednisone to 10 mg p.o. twice daily, continue nebulizer treatment Again discussed with patient's daughter, goals of care: lung nodules the biggest was 1.3 cm in the right upper lobe, as discussed with patient and daughter about this need to follow-up with PCP Palliative care consulted, patient is do not resuscitation, daughter is considering to [place], and if patient's condition getting worse will have palliative care started I encourage her to talk to [facility] case planner, however for the aspect of acute new diagnosed PE, patient and daughter want to be on aggressive treatment in this aspect, may start hospice care soon Severe protein calorie malnutrition, Nutrition consulted left lower ext wound, continue wound care Patient generally reported weakness, she is from personal care facility in [facility], discussed with patient's daughter regarding above the to the temporary to sniff, however patient's daughter reluctant to do that , want to have patient going back to personal care facilities because of good support, and daughter reported that will transition to palliative care if not doing well. However patient general condition looks weak, I requested PT OT reevaluation for shelter OR l okay to back to the personal care, if PT OT recommended to go to shelter, we need to talk to patient's daughter again Encourage increased activity, out of bed to the chair, taper off oxygen if possible, patient reports he was on oxygen at home, Increase activity, possible discharge on Wednesday Continued [facility] stay due to: home environment unsafe for pt Discharge planning: home
[2017-06-27 19:40] VITALS: PULSE 64; O2SAT 98
[2017-06-27] MEDS: CITALOPRAM 20 MG TAB PO SCH (20:52)
[2017-06-27] MEDS ORDERED: METHOTREXATE 2.5 MG TAB PO SCH (21:00)
[2017-06-27 23:05] VITALS: BP 110/70; PULSE 79; TEMP 36.4; O2SAT 98
[2017-06-28] MEDS: LEVALBUTEROL 1.25MG/3ML NEB INH SCH ×4 (02:17→19:15)
[2017-06-28] MEDS: LEVOTHYROXINE 25 MCG TAB PO SCH (05:53)
[2017-06-28 07:08] VITALS: PULSE 65; O2SAT 99
[2017-06-28] MEDS: BUDESONIDE 0.5 MG/2 ML VIAL (PULMICORT) INH SCH ×2 (07:08→19:15)
[2017-06-28] MEDS: ARFORMOTEROL TART 15MCG/2ML VIAL INH SCH ×2 (07:08→19:15)
[2017-06-28 07:26] VITALS: BP 126/65; PULSE 65; TEMP 36.4; O2SAT 99
[2017-06-28 07:45] LABS: BASO % 0.2 %; BASO ABS # 0.01 K/uL (0-0.2); HEMATOCRIT 33.9 % (37-47); HEMOGLOBIN 10.3 g/dL (12.0-16.0); IG# 0.11 K/uL (0.00-0.02); LYMPH % 3.8 %; LYMPH ABS # 0.23 K/uL (1.2-3.4); MEAN CELL VOLUME 93.1 fL (80-100); MEAN CORPUSCULAR HEMOGLOBIN 28.3 pg (25-34); MEAN CORPUSCULAR HGB CONC 30.4 g/dl (32-36); MEAN PLATELET VOLUME 10.1 fL (7.4-10.4); MONO % 5.6 %; MONO ABS # 0.34 K/uL (0.11-0.59); NEUT % 88.6 %; NEUT ABS # 5.36 K/uL (1.4-6.5); PLATELET COUNT 155 K/uL (130-400); RED CELL DISTRIBUTION WIDTH SD 50.1 fL (36.4-46.3); WHITE BLOOD COUNT 6.05 K/uL (4.8-10.8)
[2017-06-28 07:50] LABS: INR 2.6 (0.9-1.1)
[2017-06-28] MEDS: BOOST VANILLA PUDDING CUP PO SCH (08:16)
[2017-06-28 08:20] LABS: CALCIUM 8.3 mg/dl (8.5-10.1); CREATININE 0.51 mg/dl (0.60-1.20); POTASSIUM 3.8 mmol/L (3.5-5.1)
[2017-06-28] MEDS: LEVOFLOXACIN 750 MG TAB PO SCH (10:42)
--- NOTE | 2017-06-28 13:25 | Palliative Care Progress Note ---
Palliative Care Progress Note Date of Service Jun 28, 2017. Subjective Pt evaluation today including: conversation w/ patient, conversation w/ family , physical exam Pain: 0/10 PO Intake: Patient with good appetitie Pt evaluated for follow up. Patient was sitting upright on her bedside chair with 2LNC. She was in no apparent distress. I was in the room while she was eating lunch and she ate her meal without her breathing being strained. She is currently being treated for a PE. We discussed the benefits vs risks of the treatment and the deconditioning on her body, inpatient hospitalization can cause on the body and the need for PT upon discharge. I did confirm with Case Management that the patient can return to her current room at [facility] with an increase of skilled service. Pt denies SOB, chest palpitations, dizziness, GOULD, abdominal pain. Review of Systems All Other Systems: Reviewed and Negative Objective Vital Signs Date Time Temp Pulse Resp B/P (MAP) Pulse Ox O2 Delivery O2 Flow Rate FiO2 06/28/17 08:45 Nasal Cannula 2.0 06/28/17 07:26 36.4 65 18 126/65 (85) 99 Nasal Cannula 2.0 06/28/17 07:08 65 16 99 Nasal Cannula 2.0 06/28/17 00:00 Nasal Cannula 2.0 06/27/17 23:05 36.4 79 18 110/70 (83) 98 Nasal Cannula 2.0 06/27/17 20:00 Nasal Cannula 2.0 06/27/17 19:40 64 18 98 Nasal Cannula 2.0 06/27/17 16:45 Nasal Cannula 2.0 06/27/17 15:45 36.7 91 16 120/78 (92) 94 Nasal Cannula 2.0 06/27/17 14:18 76 18 96 Nasal Cannula 2.0 Physical Exam General Appearance: no apparent distress Neck: thyroid normal, no JVD Respiratory/Chest: normal breath sounds, no respiratory distress, no accessory muscle use Cardiovascular: no edema Abdomen: normal bowel sounds, non tender, soft Neurologic/Psychiatric: oriented x 3 Skin: warm/dry Laboratory Results Last 24 Hours Test 06/28/17 06:54 White Blood Count 6.05 K/uL Red Blood Count 3.64 M/uL Hemoglobin 10.3 g/dL Hematocrit 33.9 % Mean Corpuscular Volume 93.1 fL Mean Corpuscular Hemoglobin 28.3 pg Mean Corpuscular Hemoglobin Concent 30.4 g/dl Platelet Count 155 K/uL Mean Platelet Volume 10.1 fL Neutrophils (%) (Auto) 88.6 % Lymphocytes (%) (Auto) 3.8 % Monocytes (%) (Auto) 5.6 % Eosinophils (%) (Auto) 0.0 % Basophils (%) (Auto) 0.2 % Neutrophils # (Auto) 5.36 K/uL Lymphocytes # (Auto) 0.23 K/uL Monocytes # (Auto) 0.34 K/uL Eosinophils # (Auto) 0.00 K/uL Basophils # (Auto) 0.01 K/uL RDW Standard Deviation 50.1 fL RDW Coefficient of Variation 15.0 % Immature Granulocyte % (Auto) 1.8 % Immature Granulocyte # (Auto) 0.11 K/uL Prothrombin Time 26.7 SECONDS Prothromb Time International Ratio 2.6 Sodium Level 143 mmol/L Potassium Level 3.8 mmol/L Chloride Level 105 mmol/L Carbon Dioxide Level 39 mmol/L Anion Gap 0.0 mmol/L Blood Urea Nitrogen 20 mg/dl Creatinine 0.51 mg/dl Est Creatinine Clear Calc Drug Dose 50.8 ml/min Estimated GFR () 101.6 Estimated GFR (Non- 87.7 BUN/Creatinine Ratio 39.3 Random Glucose 90 mg/dl Calcium Level 8.3 mg/dl Assessment and Plan Palliative Care Encounter COPD Pulmonary Embolism Palliative Care Recommendations: -Continue medically monitoring patient -Support Skilled services upon her return to [facility] based on PT/OT recommendations -Continue to move towards and support conservative management overall in patients care Palliative Performance Scale: 30 % Continued [facility] stay due to: home environment unsafe for pt Discharge planning: detention facility (return to her room at [facility]) Counseling and Coordination Total time spent 35 minutes with > 50% of that time discussing skilled needs and transitioning to a skilled setting.
[2017-06-28 14:06] VITALS: PULSE 62; O2SAT 98
[2017-06-28] MEDS: ENOXAPARIN 60 MG/0.6 ML SYR SQ SCH (14:52)
[2017-06-28 14:58] VITALS: BP 114/71; PULSE 90; TEMP 36.6; O2SAT 100
--- NOTE | 2017-06-28 16:01 | Hospitalist Progress Note ---
Hospitalist Progress Note Date of Service Jun 28, 2017. (Perri Guevara ., SANDRA) Subjective Pt evaluation today including: conversation w/ patient, conversation w/ family , physical exam, chart review, lab review, review of inpatient medication list Voiding: no voiding problems Ms. Bowles is feeling better. Her daughter notes that she no longer has to take breaks to breathe when eating. ROS Constitutional: no chills, aches, sweats or fever Respiratory: no sob,cough, sputum, or wheezing Cardiac: no chest pain, palpitations, edema, orthopnea or lightheadedness GI: no abdominal pain, nausea, vomiting, diarrhea or constipation : no dysuria or hesitancy Extremities: no joint pain or weakness Skin: no rash All other systems reviewed and negative (Perri Guevara CRNP) Medications Medications Administered Medications (Trade) Dose Ordered Sig/Alphonso Route Start Time Stop Time Status Last Admin Dose Admin Methylprednisolone Sodium Succinate (Solu-Medrol IV) 125 mg NOW STAT IV 06/22/17 14:18 06/22/17 14:19 DC 06/22/17 14:51 125 MG Albuterol/ Ipratropium (Duoneb) 12 ml ONE ONCE INH 06/22/17 14:30 06/22/17 14:32 DC 06/22/17 14:43 12 ML Heparin Sodium (Porcine) (Heparin Sq 5000 Unit/0.5ml) 5,000 unit Q12 SQ 06/22/17 21:00 06/25/17 01:05 DC 06/24/17 20:29 5,000 UNIT Arformoterol Tartrate (Brovana 15MCG/ 2ML Neb Soln) 15 mcg BIDR INH 06/22/17 20:00 07/22/17 19:59 06/28/17 07:08 15 MCG Citalopram Hydrobromide (celeXA TAB) 10 mg HS PO 06/22/17 21:00 07/22/17 20:59 06/27/17 20:52 10 MG Levothyroxine Sodium (Synthroid Tab) 25 mcg DAILYBB PO 06/23/17 06:00 07/23/17 05:59 06/28/17 05:53 25 MCG Methotrexate (Methotrexate Tab) 5 mg Lawrence@2100 PO 06/27/17 21:00 5/10/18 16:14 06/27/17 20:55 5 MG Levalbuterol (Xopenex 1.25MG/ 3ML Neb) 1.25 mg Q6R INH 06/22/17 21:00 07/22/17 20:59 06/28/17 14:04 1.25 MG Methylprednisolone Sodium Succinate 30 mg/Syringe 0.48 ml @ 1.5 mls/min TID IV 06/22/17 21:00 06/23/17 12:23 DC 06/23/17 08:01 1.5 MLS/MIN Potassium Chloride/Sodium Chloride 1,000 ml @ 50 mls/hr Q20H IV 06/22/17 18:00 06/24/17 13:15 DC 06/24/17 02:14 50 MLS/HR Piperacillin Sod/ Tazobactam Sod 3.375 gm/Sodium Chloride 115 ml @ 230 mls/hr NOW ONCE IV 06/22/17 18:00 06/22/17 18:29 DC 06/22/17 19:38 230 MLS/HR Piperacillin Sod/ Tazobactam Sod 3.375 gm/Sodium Chloride 115 ml @ 28.75 mls/ hr Q8H IV 06/23/17 00:00 06/23/17 15:09 DC 06/23/17 08:06 28.75 MLS/HR Methylprednisolone Sodium Succinate 30 mg/Syringe 0.48 ml @ 1.5 mls/min BID IV 06/23/17 21:00 06/25/17 14:49 DC 06/25/17 07:45 1.5 MLS/MIN Cefepime HCl 2000 mg/Syringe 20 ml @ 5 mls/min DAILY@1600 IV 06/23/17 16:00 06/24/17 11:04 DC 06/23/17 15:59 5 MLS/MIN Enteral Nutritional Formula (Boost Pudding) 1 cup DAILY PO 06/24/17 09:00 07/24/17 08:59 06/24/17 08:25 1 CUP Cefepime HCl 2000 mg/Syringe 20 ml @ 5 mls/min NOW ONCE IV 06/24/17 11:15 06/24/17 11:18 DC 06/24/17 12:58 5 MLS/MIN Cefepime HCl 2000 mg/Syringe 20 ml @ 5 mls/min Q12@0000,1200 IV 06/25/17 00:00 06/26/17 12:09 DC 06/26/17 11:53 5 MLS/MIN Budesonide (Pulmicort Respules 0.5MG/ 2ML Neb Soln) 0.5 mg BIDR INH 06/24/17 20:00 07/24/17 19:59 06/28/17 07:08 0.5 MG Heparin Sodium/ Dextrose 500 ml @ 10 mls/hr Q24H IV 06/25/17 01:15 06/25/17 14:12 DC 06/25/17 02:06 10 MLS/HR Warfarin Sodium (Coumadin Tab) 5 mg DAILY@16 PO 06/25/17 16:00 06/27/17 10:08 DC 06/26/17 15:36 5 MG Enoxaparin Sodium (Lovenox Inj) 60 mg Q24H SQ 06/25/17 14:30 07/25/17 14:29 06/28/17 14:52 60 MG Methylprednisolone Sodium Succinate 20 mg/Syringe 0.32 ml @ 1.5 mls/min BID IV 06/25/17 21:00 06/26/17 00:00 DC 06/25/17 21:16 1.5 MLS/MIN Prednisone (PredniSONE TAB) 20 mg BID PO 06/26/17 09:00 06/27/17 15:51 DC 06/27/17 07:53 20 MG Levofloxacin (Levaquin Tab) 750 mg Q2D@11 PO 06/26/17 13:00 07/03/17 12:59 06/28/17 10:42 750 MG Warfarin Sodium (Coumadin Tab) 3 mg DAILY@16 PO 06/27/17 16:00 07/25/17 15:59 06/27/17 15:40 3 MG Prednisone (PredniSONE TAB) 10 mg BID PO 06/27/17 21:00 07/12/17 08:59 06/28/17 08:19 10 MG (Perri Guevara CRNP) Objective Vital Signs Date Time Temp Pulse Resp B/P (MAP) Pulse Ox O2 Delivery O2 Flow Rate FiO2 06/28/17 14:58 36.6 90 20 114/71 (85) 100 Nasal Cannula 23.0 06/28/17 14:06 62 16 98 Nasal Cannula 2.0 06/28/17 08:45 Nasal Cannula 2.0 06/28/17 07:26 36.4 65 18 126/65 (85) 99 Nasal Cannula 2.0 06/28/17 07:08 65 16 99 Nasal Cannula 2.0 06/28/17 00:00 Nasal Cannula 2.0 06/27/17 23:05 36.4 79 18 110/70 (83) 98 Nasal Cannula 2.0 06/27/17 20:00 Nasal Cannula 2.0 06/27/17 19:40 64 18 98 Nasal Cannula 2.0 06/27/17 16:45 Nasal Cannula 2.0 06/27/17 15:45 36.7 91 16 120/78 (92) 94 Nasal Cannula 2.0 (Perri Guevara, SANDRA) Laboratory Results Last 24 Hours Test 06/28/17 06:54 White Blood Count 6.05 K/uL Red Blood Count 3.64 M/uL Hemoglobin 10.3 g/dL Hematocrit 33.9 % Mean Corpuscular Volume 93.1 fL Mean Corpuscular Hemoglobin 28.3 pg Mean Corpuscular Hemoglobin Concent 30.4 g/dl Platelet Count 155 K/uL Mean Platelet Volume 10.1 fL Neutrophils (%) (Auto) 88.6 % Lymphocytes (%) (Auto) 3.8 % Monocytes (%) (Auto) 5.6 % Eosinophils (%) (Auto) 0.0 % Basophils (%) (Auto) 0.2 % Neutrophils # (Auto) 5.36 K/uL Lymphocytes # (Auto) 0.23 K/uL Monocytes # (Auto) 0.34 K/uL Eosinophils # (Auto) 0.00 K/uL Basophils # (Auto) 0.01 K/uL RDW Standard Deviation 50.1 fL RDW Coefficient of Variation 15.0 % Immature Granulocyte % (Auto) 1.8 % Immature Granulocyte # (Auto) 0.11 K/uL Prothrombin Time 26.7 SECONDS Prothromb Time International Ratio 2.6 Sodium Level 143 mmol/L Potassium Level 3.8 mmol/L Chloride Level 105 mmol/L Carbon Dioxide Level 39 mmol/L Anion Gap 0.0 mmol/L Blood Urea Nitrogen 20 mg/dl Creatinine 0.51 mg/dl Est Creatinine Clear Calc Drug Dose 50.8 ml/min Estimated GFR () 101.6 Estimated GFR (Non- 87.7 BUN/Creatinine Ratio 39.3 Random Glucose 90 mg/dl Calcium Level 8.3 mg/dl (Perri Guevara CRNP) Assessment and Plan Patient is a pleasant 87 y/o female, with PMHx of RA, hypothyroidism, peripheral edema, anxiety/depression, and COPD, who presented to the ED from [facility] due to worsening CXR. Acute on chronic respiratory failure, PNA, COPD: - cardiac enzymes wnl - O2 protocol- patient on chronic 2L - abx changed to po levaquin - steroids tapered to prednisone 10 mg bid - DuoNebs QID and PRN for sob/wheezing - no further IVF, taking po - MRSA swab negative, UA with +1 RBCs and oxylate crystals - Continue home inhalers - pulm consulted - video swallow without aspiration PE - CTA scan showed left upper lobe PE - initiated Coumadin, INR therapeutic x 2 days - can dc enoxaparin tomorrow Goals of care: Palliative care consulted - POLST completed Peripheral edema: continue lasix Severe protein calorie malnutrition - serum albumin 2.5 - Nutrition consulted - continue boost pudding Hypothyroidism: - TSH 3.1 - Continue Synthroid RA: Continue Methotrexate on Sundays Anxiety/depression: Continue Celexa DVT prophylaxis - Enoxaprin/coumadin Code status: LEVEL V, DNR Dispo: From [facility]- will dc to their tomorrow (Perri Guevara CRNP) CARDIOLOGY FELLOW Physician Supervision Note: I interviewed and examined the patient. Discussed with Perri Guevara NP and agree with findings and plan as documented in the note. Any exceptions or clarifications are listed here: None Patient is extremely hard of hearing she is fairly severe arthritic changes and she suffers from acute and chronic respiratory failure but is been stable with treatment of both pneumonia and pulmonary embolism she will return to [facility] personal[facility] shortly as her occupational physical therapy assessments have suggested she is at her baseline and [facility] was contacted by her case management feels that they can handle her needs Temperature 36 4 pulse 65 respiration rate 18 BP 126/65 Cardiac exam is regular there is no JVD lungs have decreased breath sounds bilaterally Continue treatment for her PE with warfarin and p.o. Levaquin eventual transfer to personal care Documented By: Hal Verdugo (Hal Verdugo M.D.)
[2017-06-28] MEDS: WARFARIN SOD 3 MG TAB PO SCH (19:10)
[2017-06-28 19:16] VITALS: PULSE 92; O2SAT 96
[2017-06-28] MEDS: CITALOPRAM 20 MG TAB PO SCH (20:54)
[2017-06-28 23:05] VITALS: BP 111/71; PULSE 86; TEMP 36.3; O2SAT 99
[2017-06-29] MEDS: LEVALBUTEROL 1.25MG/3ML NEB INH SCH ×2 (01:54→07:02)
[2017-06-29] MEDS: LEVOTHYROXINE 25 MCG TAB PO SCH (05:38)
[2017-06-29 07:07] VITALS: PULSE 60; O2SAT 94
[2017-06-29] MEDS: BUDESONIDE 0.5 MG/2 ML VIAL (PULMICORT) INH SCH (07:07)
[2017-06-29] MEDS: ARFORMOTEROL TART 15MCG/2ML VIAL INH SCH (07:07)
[2017-06-29 07:12] VITALS: BP 131/78; PULSE 76; TEMP 36.4; O2SAT 95
[2017-06-29 07:28] LABS: HEMATOCRIT 34.5 % (37-47); HEMOGLOBIN 10.8 g/dL (12.0-16.0); MEAN CELL VOLUME 93.2 fL (80-100); MEAN CORPUSCULAR HEMOGLOBIN 29.2 pg (25-34); MEAN CORPUSCULAR HGB CONC 31.3 g/dl (32-36); MEAN PLATELET VOLUME 9.4 fL (7.4-10.4); PLATELET COUNT 148 K/uL (130-400); RED CELL DISTRIBUTION WIDTH CV 15.4 % (11.5-14.5); RED CELL DISTRIBUTION WIDTH SD 51.7 fL (36.4-46.3); WHITE BLOOD COUNT 6.58 K/uL (4.8-10.8)
[2017-06-29 07:35] LABS: INR 2.6 (0.9-1.1)
[2017-06-29 07:57] LABS: CALCIUM 8.2 mg/dl (8.5-10.1); CREATININE 0.55 mg/dl (0.60-1.20); POTASSIUM 3.9 mmol/L (3.5-5.1)
[2017-06-29] MEDS: BOOST VANILLA PUDDING CUP PO SCH (08:31)
[2017-06-29] MEDS ORDERED: CMD3 PO (09:39)
[2017-06-29] MEDS ORDERED: PRD10 PO (09:39)
[2017-06-29] MEDS ORDERED: LVQ750 PO (09:39)
[2017-06-29] MEDS ORDERED: NUTRMIS PO (09:39)
[2017-06-29] MEDS ORDERED: PLMINS INH (09:39)
--- NOTE | 2017-06-29 09:42 | Discharge Instructions ---
Discharge Instructions Date of Service Jun 29, 2017. Admission Reason for Admission: Acute And Chronic Respiratory Failure With Hypoxia Discharge Discharge Diagnosis / Problem: Pneumonia, pulmonary embolism Discharge Goals Goal(s): Decrease discomfort, Improve function, Improve disease control Activity Recommendations Activity Limitations: resume your previous activity Exercise/Sports Limitations: gradually increase as tolerated . Instructions / Follow-Up Instructions / Follow-Up Please follow up with your primary care provider and pulmonary within about a week. Please have your INR drawn in 3 days, you are currently therapeutic with your Coumadin with an INR of 2.6 Current Hospital Diet Patient's current hospital diet: Regular Diet Discharge Diet Recommended Diet: Regular Diet Procedures Procedures Performed: Chest Xray, Chest CT, Video Swallow Pending Studies Studies pending at discharge: no Medical Emergencies . Who to Call and When: Medical Emergencies: If at any time you feel your situation is an emergency, please call 911 immediately. . Non-Emergent Contact Non-Emergency issues call your: Primary Care Provider Call Non-Emergent contact if: you have a fever, you have any medication questions . . "Provider Documentation" section prepared by Perri Guevara. .
[2017-06-29 10:25] VITALS: BP 131/78; PULSE 76; TEMP 36.4; O2SAT 95
--- NOTE | 2017-06-29 10:25 | Discharge Summary ---
Discharge Summary Date of Service Jun 29, 2017. Discharge Summary Admission Date: Jun 22, 2017 at 16:14 Discharge Date: Jun 29, 2017 Discharge Disposition: Personal care Principal Diagnosis: Pneumonia, Pulmonary Embolism Procedures: VIDEO SWALLOW CLINICAL HISTORY: possible aspiration, hypoxia. Acute and chronic respiratory failure. COMPARISON STUDY: No previous studies for comparison. Fluoroscopy time: 1.6 minutes. FINDINGS: No tracheal aspiration was identified with thin liquids, nectar thick liquids, honey thickened liquids, pudding or crackers with paste. There was premature spillage. There was mild prominence of the cricopharyngeus. Moderate to severe esophageal dysmotility was noted. IMPRESSION: 1. No tracheal aspiration identified. 2. Mild prominence of the cricopharyngeus. 3. Moderate to severe esophageal dysmotility. 4. Full recommendations by speech pathology to follow. Electronically signed by: Shant Byers M.D. 06/25/2017 12:38 PM CHEST CTA for PULMONARY ARTERIES CT DOSE: 192.23 mGy.cm HISTORY: Short of breath. TECHNIQUE: Multiaxial CT images of the chest were performed following the intravenous administration of contrast to evaluate the pulmonary arteries. Maximal intensity projection images were also obtained. A dose lowering technique was utilized adhering to the principles of ALARA. COMPARISON STUDY: Chest 06/24/2017. FINDINGS: Normal caliber thoracic aorta with no evidence for dissection. The heart is normal in size. No pericardial effusion. There is a filling defect seen within a left upper lobe subsegmental pulmonary artery consistent with a pulmonary embolus. The main pulmonary arteries are patent. No acute fractures within the visualized osseous structures. Multiple scattered hypodense lesions seen throughout the liver. These favor cysts. The largest measures 3.7 cm. The visualized spleen and adrenal glands are within normal limits. Trace left pleural effusion. No significant mediastinal or hilar lymphadenopathy. No pneumothorax. Mild bronchiectasis. A few scattered opacified terminal bronchi at the lung bases. Emphysema. Biapical subpleural scarlike densities. A 6 mm subpleural nodule within the left lower lobe on image 73. Groundglass density within the majority of the right upper lobe. There is also a 1.3 cm irregular nodular opacity within the right upper lobe on image 207. Patchy groundglass density within the left lower lobe. There is also faint ground glass density within the left upper lobe anteriorly. IMPRESSION: 1. A single subsegmental pulmonary embolus seen within the left upper lobe. 2. Groundglass densities seen within the right upper lobe, anterior left upper lobe, and left lower lobe. This favors a pneumonia. 3. There is also an irregular 1.3 cm nodule within the right upper lobe. This may be due to the suspected pneumonia. However, [address] follow-up is recommended to ensure resolution. 4. A few opacified bibasilar terminal bronchi. 5. A 6 mm subpleural nodule within the left lower lobe. 6. Emphysema. 7. Trace left pleural effusion. 8. These findings were called/faxed to the covering physician following dictation. Electronically signed by: Kane Vilchis M.D. 06/24/2017 11:03 PM CHEST ONE VIEW PORTABLE CLINICAL HISTORY: 87 years-old Female presenting with SOB. TECHNIQUE: Portable upright AP view of the chest was obtained. COMPARISON: 05/24/2017. FINDINGS: Atherosclerosis of the aortic arch. Cardiac silhouette normal in size. Lungs hyperinflated. Heterogeneity of lung parenchyma. Reticulonodular opacities in the right apex slightly decreased from prior. No large pleural effusion or pneumothorax. Osseous structures normal. IMPRESSION: 1. Slight decrease in right apical reticulonodular opacities, which likely represent evolving postinfectious or postinflammatory infiltrates. These should be followed to resolution given the patient's underlying emphysema. Electronically signed by: Will Slaughter M.D. 06/22/2017 2:11 PM Consultations: Dr. Posey from Pulmonary, SANDRA Acharya from Palliative Care Medication Reconciliation New Medications: Budesonide (Inhalation) (Pulmicort Respules 0.5MG/2ML) 0.5 Mg/2 Ml Aileen 0.5 MG INH BIDR for 30 Days, #1 INHALER Levofloxacin (Levofloxacin) 750 Mg Tab 750 MG PO Q2D@11 for 1 Day, #1 TAB please take on 06/30 Nutritional Supplements (Boost Pudding) 1 Mis Mis 1 CUP PO DAILY for 30 Days, #30 DOSE Prednisone (Prednisone) 10 Mg Tab 10 MG PO DAILY for 3 Days, #3 TAB Warfarin Sod (Coumadin) 3 Mg Tab 3 MG PO DAILY@16 for 7 Days, #7 TAB Continued Medications: Acetaminophen (Tylenol) 500 Mg Tab 500 MG PO Q6H PRN for MILD PAIN/FEVER, TAB DO NOT EXCEED 6 TABLET IN 24 HOURS. Acetaminophen (Tylenol) 500 Mg Tab 1000 MG PO Q6H PRN for MODERATE PAIN, TAB DO NOT EXCEED 6 TABLETS IN 24 HOURS. Arformoterol Tartrate (Brovana) 15 Mcg/2 Ml Neb 15 MCG INH BID Cholecalciferol (Vitamin D3) 2,000 Unit Cap 2000 UNITS PO QAM for 90 Days, CAP 3 Refills Citalopram Hydrobromide (Celexa) 20 Mg Tab 10 MG PO HS Emollient (Cerave) 1 Cre Cre 1 APPLN TOP BID TO BILATERAL LEGS AND ARMS FOR EXCESSIVE DRY SKIN Furosemide (Lasix) 20 Mg Tab 20 MG PO DAILY PRN for ANKLE EDEMA, TAB Home O2 Therapy (Oxygen) Gas 2 LITERS NA CONTINOUS, BTL Ipratropium [place] (Atrovent 0.02% Soln) 2.5 Ml Nebu 1 VIAL INH TID Levalbuterol (Levalbuterol HCl) 0.63 Mg/3 Ml Nebu 1 VIAL INH TID Levothyroxine Sodium (Levothyroxine Sodium) 25 Mcg Tab 25 MCG PO QAM Methotrexate (Methotrexate) 2.5 Mg Tab 5 MG PO WK, TAB QPM EVERY WEDNESDAY. Morphine Sulfate (Morphine Sulfate) 10 Mg/5 Ml Marissa 1 ML PO Q1H PRN for PAIN&DYSPNEA Ondansetron Hcl (Zofran) 4 Mg Tab 4 MG PO Q4H PRN for Nausea Potassium Chloride (Potassium Chloride Er) 10 Meq Tab 10 MEQ PO DAILY PRN for WHEN GIVEN LASIX for 90 Days, #90 TAB 3 Refills Discontinued Medications: Moxifloxacin Hcl (Avelox) 400 Mg Tab 400 MG PO DAILY FOR 10 DAYS FOR PNEUMONIA. STARTED 06/18/17 Discharge Exam ROS Constitutional: no chills, aches, sweats or fever Respiratory: no sob,cough, sputum, or wheezing Cardiac: no chest pain, palpitations, edema, orthopnea or lightheadedness GI: no abdominal pain, nausea, vomiting, diarrhea or constipation : no dysuria or hesitancy Extremities: no joint pain or weakness Skin: no rash All other systems reviewed and negative General: no distress Eyes: normal inspection, PERLL Respiratory: chest non tender, fine crackles left upper lobe, other lobes clear , no respiratory distress, no accessory muscle use Cardiac: regular rate and rhythm, no rub or gallop, no murmur, no edema, no jvd GI/: active bowel sounds, no abd pain or tenderness, soft, non distended Extremities: normal range of motion, normal strength, non tender Neuro/Psych: alert and oriented x 3, normal mood and affect Skin: normal color, dry Hospital Course Patient is a pleasant 87 y/o female, with PMHx of RA, hypothyroidism, peripheral edema, anxiety/depression, and COPD, who presented to the ED from [facility] due to worsening CXR. Per patient, she had been feeling progressively SOB for "a few months now." Patient was admitted in April for PNA. She was discharged to [facility] on antibiotics. Since that time, [facility] has been doing routine CXR to ensure resolution. She was placed on Moxifloxacin on 06/18. Today, she appeared hypoxic with blue lips and a repeat CXR was done. 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 CXR in ED reported decrease in opacities. Patient denies any fever, chills, sweats, lightheadedness, dizziness, vision changes, CP, palpitations, edema, wheezing, cough, abdominal pain, nausea, vomiting, diarrhea , urinary symptoms, melena, numbness/tingling, weakness, muscle/joint pain, anxiety/depression, active bleeding, or new skin discoloration/changes. Acute on chronic respiratory failure, PNA, COPD: - cardiac enzymes wnl - O2 protocol- patient on chronic 2L - abx changed to po levaquin - last day 06/30 for 10 regimen - steroids tapered to prednisone 10 mg daily x 3 more days - DuoNebs QID and PRN for sob/wheezing - no further IVF, taking po - MRSA swab negative, UA with +1 RBCs and oxylate crystals - Continue home inhalers - pulm consulted - video swallow without aspiration - procalcitonin 06/24 wnl, wbc wnl, afebrile PE - CTA scan showed left upper lobe PE - initiated Coumadin, INR therapeutic x 3 days - enoxaparin dc'd - Patient should have a repeat INR in 3 days Goals of care: Palliative care consulted - POLST completed, family considering hospice Peripheral edema: continue lasix Severe protein calorie malnutrition - serum albumin 2.5 - Nutrition consulted - continue boost pudding Hypothyroidism: - TSH 3.1 - Continue Synthroid RA: Continue Methotrexate on Sundays Anxiety/depression: Continue Celexa OSS ARCHITECT Physician Supervision Note: I interviewed and examined the patient. Discussed with Perri Guevara NP and agree with findings and plan as documented in the note. Any exceptions or clarifications are listed here: None Patient was seen in the presence of her daughter she is back to her baseline she is limited with arthritis however she has no complaints or problems from her breathing or recent pulmonary embolism recent vital signs temp 36 4 pulse 76 respiration rate 20 BP 131/76 Her cardiac exam is distant her lungs are decreased breath sounds but clear Patient be home on continued doses of Levaquin in conjunction with her warfarin her INR is therapeutic and although there is an interaction with quinolones and anticoagulants will continue on warfarin with close monitoring as an outpatient Documented By: Hal Verdugo Total Time Spent: Greater than 30 minutes This includes examination of the patient, discharge planning, medication reconciliation, and communication with other providers. Discharge Instructions Please refer to the electronic Patient Visit Report (Discharge Instructions) for additional information. Follow-Up Dr. Posey and pcp in about a week Additional Copies To Teresa Doty
[2017-07-02] MEDS ORDERED: APIXABAN 2.5 MG TAB PO SCH (09:00)
== END 2017-06-29 11:20 | disposition home or self-care (01) | DRG 193 ==
LOC: EDBD 12:43 → C.EDC 12:44 → C.2E 16:14 → EDBEDREQ 16:23 → ENRESERV 17:13 → C.MS2W 06-24 13:59
PROVIDERS: ADMIT Internal Medicine; ATTEND Internal Medicine
DX: J18.9 Pneumonia, unspecified organism (principal); J96.21 Acute and chronic respiratory failure with hypoxia; E43 Unspecified severe protein-calorie malnutrition; I26.99 Other pulmonary embolism without acute cor pulmonale; J44.0 Chronic obstructive pulmonary disease with (acute) lower respiratory infection; Z68.1 Body mass index [BMI] 19.9 or less, adult; J44.1 Chronic obstructive pulmonary disease with (acute) exacerbation; M06.9 Rheumatoid arthritis, unspecified; E03.9 Hypothyroidism, unspecified; F32.9 Major depressive disorder, single episode, unspecified; F41.9 Anxiety disorder, unspecified; R60.0 Localized edema; K22.4 Dyskinesia of esophagus; Z66 Do not resuscitate; Z79.899 Other long term (current) drug therapy; Z87.891 Personal history of nicotine dependence; Z99.81 Dependence on supplemental oxygen